=== PATIENT | male | born 1945 | race Caucasian/White ===

== ENCOUNTER 2017-11-03 21:04 | Inpatient (IN) ==
--- NOTE | 2017-11-03 21:35 | Emergency Department Note ---
Disposition Clinical Impression: Hypoxemia Community acquired pneumonia Qualifiers: Laterality: unspecified laterality Qualified Code(s): J18.9 - Pneumonia, unspecified organism Sepsis Qualifiers: Sepsis type: sepsis due to unspecified organism Qualified Code(s): A41.9 - Sepsis, unspecified organism Disposition: Admitted As Inpatient Condition: Fair Time of Disposition: 23:58 Fever HPI - General Chief Complaint: ED Fever Stated Complaint: high glucose/ fever Time Seen by Provider: 11/03/17 21:13 Source: patient Mode of arrival: ambulatory Limitations: no limitations Nursing Notes Reviewed: Yes Vital Signs Reviewed: Yes - History of Present Illness HPI Narrative: Patient is a 72-year-old male who presents to [facility] ED with a chief complaint of fever, headache, cough, feeling hot and chills. States his symptoms have been worsening over the last 2 days. His is also sick and states the grandchildren are also sick. Denies any nausea, vomiting, chest pain, difficulty breathing, abdominal pain, problems with urination. He has had one day of watery diarrhea. No recent antibiotic usage or travel. Past medical history significant for diabetes. States his sugar has been running high today. Pt Subjective Complaint: fever, malaise, rigors Onset (ago): day(s) (2) Context: sick contacts Associated symptoms: Reports: chills, rigors, headache, rhinorrhea, cough, diarrhea. Denies: chest pain, dyspnea, abdominal pain, nausea, vomiting, dysuria, altered mental status Improves with: nothing Worsens with: nothing - Related Data Previous Rx's Medication Instructions Recorded Amoxicillin 875 mg PO BID #20 tablet 08/07/15 Allergies Allergy/AdvReac Type Severity Reaction Status Date / Time No Known Allergies Allergy Verified 11/03/17 21:11 All systems ED: reviewed and negative except as stated. Fever PMH - Past Medical History Medical history: Reports: dementia, diabetes Psychiatric history: Reports: no psych history - Social History Smoking Status: Never smoker Alcohol use: Reports: occasionally Drug use: Reports: none Physical Exam - General Limitations: no limitations General appearance: alert, in no apparent distress - Head Head exam: atraumatic, normocephalic, normal inspection - Eye Eye exam: Present: normal appearance, PERRL, EOMI - ENT ENT exam: normal exam, normal oropharynx, mucous membranes moist - Neck Neck exam: Present: normal inspection, full ROM, trachea midline. Absent: meningismus - Chest Chest inspection: Present: normal inspection, symmetric chest wall rise - Respiratory Respiratory exam: Present: normal lung sounds bilaterally - Cardiovascular Cardiovascular exam: Present: normal rhythm, tachycardia - Abdominal Exam Abdominal exam: Present: soft, Non-Tender. Absent: tenderness, distention, guarding, rebound, rigidity - Extremities Exam Extremities exam: Present: normal inspection, full ROM. Absent: tenderness, pedal edema - Back Exam Back exam: Present: normal inspection, full ROM. Absent: tenderness - Neurological Exam Neurological exam: Present: alert, oriented X3. Absent: motor sensory deficit - Psychiatric Psychiatric exam: Present: normal affect, normal mood - Skin Skin exam: Present: warm, dry, intact, normal color Course Course Narrative: Patient seen and examined. Patient with cold symptoms and cough for the last 2 days. His febrile here of 101. Is also tachycardic and hypoxemic with his oxygen at 89% on room air. We will do a septic workup and check for influenza. We will likely admit due to his hypoxemia. - Reevaluation(s) Reevaluation #1: Chest x-ray shows bibasilar findings suspicious for possible pneumonia. With his hypoxemia, we will go ahead and treat as pneumonia. Levaquin and rocephin ordered for healthcare associated pneumonia. I discussed with hospitalist who has accepted patient for admission. States he would not recommend doing Rocephin at this time. Time: 23:50 Vital Signs Temperature 99.8 F H 11/03/17 21:08 Pulse Rate 122 11/03/17 21:08 Respiratory Rate 16 11/03/17 21:08 Blood Pressure 125/78 11/03/17 21:08 O2 Sat by Pulse Oximetry 90 11/03/17 21:08 Temperature 101.9 F H 11/03/17 21:21 Pulse Rate 91 11/03/17 23:17 Respiratory Rate 18 11/03/17 23:17 Blood Pressure 125/67 11/03/17 23:17 O2 Sat by Pulse Oximetry 96 11/03/17 23:17 Oxygen Delivery Oxygen Delivery Nasal Cannula Fever - Medical Records Medical records reviewed: Yes I reviewed the patient's medical records. - Lab Data Lab results reviewed: Yes I reviewed the patient's lab results. Result diagrams: 11/03/17 21:23 11/03/17 21:23 Lab Results 11/03/17 11/03/17 11/03/17 Range/Units 21:21 21:23 21:23 WBC 8.9 (4.3-11.1) K/mcL RBC 4.46 (4.19-5.50) M/mcL Hgb 13.5 (12.9-16.9) g/dL Hct 41.3 (37.5-50.1) % MCV 92.6 (83.0-100.0) fL MCH 30.3 (28.0-33.3) pg MCHC 32.7 (31.6-35.5) g/dL RDW 12.9 (11.5-14.5) % Plt Count 201 (140-400) K/mcL MPV 9.9 (9.4-12.4) fL Immature Gran % 0.3 (0-4) % Seg Neutrophils % 90.5 % Lymphocytes % 3.7 % Monocytes % 5.4 % Eosinophils % 0.0 % Basophils % 0.1 % Neutrophils # 8.1 (1.6-8.9) K/mcL Lymphocytes # 0.3 L (0.6-4.6) K/mcL Monocytes # 0.5 (0.0-1.3) K/mcL Eosinophils # 0.0 (0.0-0.6) K/mcL Basophils # 0.0 (0.0-0.2) K/mcL Toxic Granulation Present A (Not Present) Platelet Estimate Normal (Normal) Large Platelets Present A (Not Present) Sodium 132 L (136-145) mEq/L Potassium 4.2 (3.5-5.1) mEq/L Chloride 94 L (98-107) mEq/L Carbon Dioxide 24 (23-29) mEq/L BUN 28 H (8-23) mg/dL Creatinine 1.05 (0.70-1.30) mg/dL Est GFR ( Amer) > 60 (> 60) Est GFR (Non-Af Amer) > 60 (> 60) BUN/Creatinine Ratio 27 H (6-26) Glucose 422 H (70-105) mg/dL Calculated Osmolality 297 (280-300) Lactic Acid (0.5-2.2) mmol/L Calcium 8.8 (8.6-10.3) mg/dL Phosphorus 1.6 L (2.7-4.5) mg/dL Magnesium 1.6 (1.6-2.6) mg/dL Total Bilirubin 0.8 (0.3-1.0) mg/dL Direct Bilirubin 0.1 (0.0-0.2) mg/dL Indirect Bilirubin 0.7 (0.0-1.2) mg/dL AST 51 H (13-39) Units/L ALT 36 (7-52) Units/L Alkaline Phosphatase 96 (34-104) Units/L Troponin I < 0.03 (< 0.04) ng/mL Serum Total Protein 6.8 (6.4-8.9) g/dL Albumin 3.8 (3.5-5.7) g/dL Globulin 3.0 (2.4-3.5) g/dL Albumin/Globulin Ratio 1.3 (1.1-2.2) Urine Color Yellow (Yellow) Urine Clarity Clear (Clear) Urine pH 5.5 (5.0-8.0) pH Units Ur Specific Rydal > 1.030 H (1.010-1.025) Urine Protein 30 H (Neg-Trace) mg/dL Urine Glucose (UA) >=1000 H (Normal) mg/dL Urine Ketones 15 H (Negative) mg/dL Urine Blood Negative (Negative) Urine Nitrite Negative (Negative) Urine Bilirubin Negative (Negative) Urine Urobilinogen Normal (Normal) mg/dL Ur Leukocyte Esterase Negative (Negative) Urine Microscopic RBC 5-15 H (0-3) per hpf Urine Microscopic WBC 3-5 H (0-3) per hpf Ur Squamous Epith Cells Moderate H (None-Few) per lpf Urine Bacteria None Seen (None-Few) per hpf Hyaline Casts None Seen (None-Few) per lpf Ur Culture Indicated? NO (NO) 11/03/17 Range/Units 21:23 WBC (4.3-11.1) K/mcL RBC (4.19-5.50) M/mcL Hgb (12.9-16.9) g/dL Hct (37.5-50.1) % MCV (83.0-100.0) fL MCH (28.0-33.3) pg MCHC (31.6-35.5) g/dL RDW (11.5-14.5) % Plt Count (140-400) K/mcL MPV (9.4-12.4) fL Immature Gran % (0-4) % Seg Neutrophils % % Lymphocytes % % Monocytes % % Eosinophils % % Basophils % % Neutrophils # (1.6-8.9) K/mcL Lymphocytes # (0.6-4.6) K/mcL Monocytes # (0.0-1.3) K/mcL Eosinophils # (0.0-0.6) K/mcL Basophils # (0.0-0.2) K/mcL Toxic Granulation (Not Present) Platelet Estimate (Normal) Large Platelets (Not Present) Sodium (136-145) mEq/L Potassium (3.5-5.1) mEq/L Chloride (98-107) mEq/L Carbon Dioxide (23-29) mEq/L BUN (8-23) mg/dL Creatinine (0.70-1.30) mg/dL Est GFR ( Amer) (> 60) Est GFR (Non-Af Amer) (> 60) BUN/Creatinine Ratio (6-26) Glucose (70-105) mg/dL Calculated Osmolality (280-300) Lactic Acid 3.5 H (0.5-2.2) mmol/L Calcium (8.6-10.3) mg/dL Phosphorus (2.7-4.5) mg/dL Magnesium (1.6-2.6) mg/dL Total Bilirubin (0.3-1.0) mg/dL Direct Bilirubin (0.0-0.2) mg/dL Indirect Bilirubin (0.0-1.2) mg/dL AST (13-39) Units/L ALT (7-52) Units/L Alkaline Phosphatase (34-104) Units/L Troponin I (< 0.04) ng/mL Serum Total Protein (6.4-8.9) g/dL Albumin (3.5-5.7) g/dL Globulin (2.4-3.5) g/dL Albumin/Globulin Ratio (1.1-2.2) Urine Color (Yellow) Urine Clarity (Clear) Urine pH (5.0-8.0) pH Units Ur Specific Rydal (1.010-1.025) Urine Protein (Neg-Trace) mg/dL Urine Glucose (UA) (Normal) mg/dL Urine Ketones (Negative) mg/dL Urine Blood (Negative) Urine Nitrite (Negative) Urine Bilirubin (Negative) Urine Urobilinogen (Normal) mg/dL Ur Leukocyte Esterase (Negative) Urine Microscopic RBC (0-3) per hpf Urine Microscopic WBC (0-3) per hpf Ur Squamous Epith Cells (None-Few) per lpf Urine Bacteria (None-Few) per hpf Hyaline Casts (None-Few) per lpf Ur Culture Indicated? (NO) - Radiology Data Radiology results reviewed: Yes I reviewed the patient's radiology results. Chest X-Ray 11/03/17 21:14 IMPRESSION: Basilar airspace disease could reflect aspiration or pneumonia. Suspect a component of basilar predominant airway inflammation as well. D/ / Francisco Fletcher / Francisco Fletcher Interpreting Provider: Francisco Fletcher - EKG Data EKG attestation: Yes I reviewed and interpreted this EKG.
[2017-11-03 21:43] LABS: Basophils % 0.1 %; Hematocrit 41.3 % (37.5-50.1); Hemoglobin 13.5 g/dL (12.9-16.9); Immature Granulocytes % 0.3 % (0-4); Lymphocytes # 0.3 K/mcL (0.6-4.6); Lymphocytes % 3.7 %; Mean Corpuscular HGB Conc 32.7 g/dL (31.6-35.5); Mean Corpuscular Hemoglobin 30.3 pg (28.0-33.3); Mean Corpuscular Volume 92.6 fL (83.0-100.0); Mean Platelet Volume 9.9 fL (9.4-12.4); Monocytes # 0.5 K/mcL (0.0-1.3); Monocytes % 5.4 %; Platelet Count 201 K/mcL (140-400); Red Blood Count 4.46 M/mcL (4.19-5.50); Red Cell Distribution Width 12.9 % (11.5-14.5); Segmented Neutrophils % 90.5 %
[2017-11-03 21:45] LABS: Neutrophils # 8.1 K/mcL (1.6-8.9)
[2017-11-03] MEDS ORDERED: 0.9 % Sodium Chloride 1,000 ML IVC ONE (21:46)
[2017-11-03 21:50] LABS: Bilirubin,Urine Negative (Negative); Blood,Urine Negative (Negative); Clarity,Urine Clear (Clear); Color,Urine Yellow (Yellow); Glucose,Urine (UA) >=1000 mg/dL (Normal); Ketones,Urine 15 mg/dL (Negative); Leukocyte Esterase,Urine Negative (Negative); Nitrite,Urine Negative (Negative); PH,Urine 5.5 pH Units (5.0-8.0); Protein,Urine 30 mg/dL (Neg-Trace); Specific Gravity,Urine > 1.030 (1.010-1.025); Urobilinogen,Urine Normal (Normal)
[2017-11-03 21:51] LABS: Bacteria,Urine None Seen per hpf (None-Few); Hyaline Casts,Urine None Seen per lpf (None-Few); Squamous Epithelial Cell,Urine Moderate per lpf (None-Few)
--- NOTE | 2017-11-03 21:57 | Emergency Department Note ---
Disposition Clinical Impression: Hypoxemia Community acquired pneumonia Qualifiers: Laterality: unspecified laterality Qualified Code(s): J18.9 - Pneumonia, unspecified organism Sepsis Qualifiers: Sepsis type: sepsis due to unspecified organism Qualified Code(s): A41.9 - Sepsis, unspecified organism Disposition: Admitted As Inpatient Condition: Fair General Adult HPI - General Chief complaint: ED Fever Stated complaint: high glucose/ fever Time Seen by Provider: 11/03/17 21:13 Source: patient Mode of arrival: ambulatory Limitations: no limitations - History of Present Illness Pain Scale: 4 - Related Data Previous Rx's Medication Instructions Recorded Amoxicillin 875 mg PO BID #20 tablet 08/07/15 Allergies Allergy/AdvReac Type Severity Reaction Status Date / Time No Known Allergies Allergy Verified 11/03/17 21:11 Past Medical History - Past Medical History Medical history: Reports: dementia, diabetes Psychiatric history: Reports: no psych history - Social History Smoking Status: Never smoker Smokeless Tobacco Status: No Alcohol use: Reports: occasionally Drug use: Reports: none Physical Exam - General Limitations: no limitations General appearance: alert, in no apparent distress Course Vital Signs Temperature 99.8 F H 11/03/17 21:08 Pulse Rate 122 11/03/17 21:08 Respiratory Rate 16 11/03/17 21:08 Blood Pressure 125/78 11/03/17 21:08 O2 Sat by Pulse Oximetry 90 11/03/17 21:08 Temperature 97.9 F 11/04/17 01:27 Pulse Rate 80 11/04/17 01:27 Respiratory Rate 16 11/04/17 01:27 Blood Pressure 124/73 11/04/17 01:27 O2 Sat by Pulse Oximetry 95 11/04/17 01:27 Oxygen Delivery Oxygen Delivery Nasal Cannula Medical Decision Making - Lab Data Result diagrams: 11/04/17 00:26 11/04/17 00:26 Lab Results 11/03/17 11/03/17 11/03/17 Range/Units 21:21 21:23 21:23 WBC 8.9 (4.3-11.1) K/mcL RBC 4.46 (4.19-5.50) M/mcL Hgb 13.5 (12.9-16.9) g/dL Hct 41.3 (37.5-50.1) % MCV 92.6 (83.0-100.0) fL MCH 30.3 (28.0-33.3) pg MCHC 32.7 (31.6-35.5) g/dL RDW 12.9 (11.5-14.5) % Plt Count 201 (140-400) K/mcL MPV 9.9 (9.4-12.4) fL Immature Gran % 0.3 (0-4) % Seg Neutrophils % 90.5 % Lymphocytes % 3.7 % Monocytes % 5.4 % Eosinophils % 0.0 % Basophils % 0.1 % Neutrophils # 8.1 (1.6-8.9) K/mcL Lymphocytes # 0.3 L (0.6-4.6) K/mcL Monocytes # 0.5 (0.0-1.3) K/mcL Eosinophils # 0.0 (0.0-0.6) K/mcL Basophils # 0.0 (0.0-0.2) K/mcL Toxic Granulation Present A (Not Present) Platelet Estimate Normal (Normal) Large Platelets Present A (Not Present) Sodium 132 L (136-145) mEq/L Potassium 4.2 (3.5-5.1) mEq/L Chloride 94 L (98-107) mEq/L Carbon Dioxide 24 (23-29) mEq/L BUN 28 H (8-23) mg/dL Creatinine 1.05 (0.70-1.30) mg/dL Est GFR ( Amer) > 60 (> 60) Est GFR (Non-Af Amer) > 60 (> 60) BUN/Creatinine Ratio 27 H (6-26) Glucose 422 H (70-105) mg/dL Calculated Osmolality 297 (280-300) Lactic Acid (0.5-2.2) mmol/L Calcium 8.8 (8.6-10.3) mg/dL Phosphorus 1.6 L (2.7-4.5) mg/dL Magnesium 1.6 (1.6-2.6) mg/dL Total Bilirubin 0.8 (0.3-1.0) mg/dL Direct Bilirubin 0.1 (0.0-0.2) mg/dL Indirect Bilirubin 0.7 (0.0-1.2) mg/dL AST 51 H (13-39) Units/L ALT 36 (7-52) Units/L Alkaline Phosphatase 96 (34-104) Units/L Troponin I < 0.03 (< 0.04) ng/mL Serum Total Protein 6.8 (6.4-8.9) g/dL Albumin 3.8 (3.5-5.7) g/dL Globulin 3.0 (2.4-3.5) g/dL Albumin/Globulin Ratio 1.3 (1.1-2.2) Urine Color Yellow (Yellow) Urine Clarity Clear (Clear) Urine pH 5.5 (5.0-8.0) pH Units Ur Specific Veteran > 1.030 H (1.010-1.025) Urine Protein 30 H (Neg-Trace) mg/dL Urine Glucose (UA) >=1000 H (Normal) mg/dL Urine Ketones 15 H (Negative) mg/dL Urine Blood Negative (Negative) Urine Nitrite Negative (Negative) Urine Bilirubin Negative (Negative) Urine Urobilinogen Normal (Normal) mg/dL Ur Leukocyte Esterase Negative (Negative) Urine Microscopic RBC 5-15 H (0-3) per hpf Urine Microscopic WBC 3-5 H (0-3) per hpf Ur Squamous Epith Cells Moderate H (None-Few) per lpf Urine Bacteria None Seen (None-Few) per hpf Hyaline Casts None Seen (None-Few) per lpf Ur Culture Indicated? NO (NO) 11/03/17 Range/Units 21:23 WBC (4.3-11.1) K/mcL RBC (4.19-5.50) M/mcL Hgb (12.9-16.9) g/dL Hct (37.5-50.1) % MCV (83.0-100.0) fL MCH (28.0-33.3) pg MCHC (31.6-35.5) g/dL RDW (11.5-14.5) % Plt Count (140-400) K/mcL MPV (9.4-12.4) fL Immature Gran % (0-4) % Seg Neutrophils % % Lymphocytes % % Monocytes % % Eosinophils % % Basophils % % Neutrophils # (1.6-8.9) K/mcL Lymphocytes # (0.6-4.6) K/mcL Monocytes # (0.0-1.3) K/mcL Eosinophils # (0.0-0.6) K/mcL Basophils # (0.0-0.2) K/mcL Toxic Granulation (Not Present) Platelet Estimate (Normal) Large Platelets (Not Present) Sodium (136-145) mEq/L Potassium (3.5-5.1) mEq/L Chloride (98-107) mEq/L Carbon Dioxide (23-29) mEq/L BUN (8-23) mg/dL Creatinine (0.70-1.30) mg/dL Est GFR ( Amer) (> 60) Est GFR (Non-Af Amer) (> 60) BUN/Creatinine Ratio (6-26) Glucose (70-105) mg/dL Calculated Osmolality (280-300) Lactic Acid 3.5 H (0.5-2.2) mmol/L Calcium (8.6-10.3) mg/dL Phosphorus (2.7-4.5) mg/dL Magnesium (1.6-2.6) mg/dL Total Bilirubin (0.3-1.0) mg/dL Direct Bilirubin (0.0-0.2) mg/dL Indirect Bilirubin (0.0-1.2) mg/dL AST (13-39) Units/L ALT (7-52) Units/L Alkaline Phosphatase (34-104) Units/L Troponin I (< 0.04) ng/mL Serum Total Protein (6.4-8.9) g/dL Albumin (3.5-5.7) g/dL Globulin (2.4-3.5) g/dL Albumin/Globulin Ratio (1.1-2.2) Urine Color (Yellow) Urine Clarity (Clear) Urine pH (5.0-8.0) pH Units Ur Specific Veteran (1.010-1.025) Urine Protein (Neg-Trace) mg/dL Urine Glucose (UA) (Normal) mg/dL Urine Ketones (Negative) mg/dL Urine Blood (Negative) Urine Nitrite (Negative) Urine Bilirubin (Negative) Urine Urobilinogen (Normal) mg/dL Ur Leukocyte Esterase (Negative) Urine Microscopic RBC (0-3) per hpf Urine Microscopic WBC (0-3) per hpf Ur Squamous Epith Cells (None-Few) per lpf Urine Bacteria (None-Few) per hpf Hyaline Casts (None-Few) per lpf Ur Culture Indicated? (NO) Critical Care Time Critical Care Time: Yes Total Critical Care Time: 35 Attestation: Critical care performed: Time is exclusive of separately billable procedures. Time includes: direct patient care, patient reassessment, coordination of patient care, interpretation of data (laboratory data, radiology data, and respiratory data), review of patient's medical records, medical consultation and documentation of patient care. Procedures included in critical care time: Procedures excluded from critical care time: Attestation Statement - Attestation Attestation: I examined this patient and my medical decision-making was reviewed with the Resident Physician. I agree with the documented findings, disposition and treatment plan as described except to the extent set forth below. Patient to the ED not feeling well. Fever. Dry cough. Runny nose. Has been around grandchildren they have been caring for that had fevers. On examination his stomach hypoxic requiring oxygen. Lungs clear abdomen soft. Plan. Septic workup. Patient's febrile here. We will give IV fluids and Tylenol. Likely admission. Patient with pneumonia. Community acquired antibiotics ordered. He meets sepsis criteria with fever and tachycardia. He does not meet septic shock criteria. Lactate is elevated but less than 4. Blood pressure stable. Admitted to medicine.
[2017-11-03 22:04] LABS: Large Platelets Present (Not Present); Platelet Estimate Normal (Normal); Toxic Granulation Present (Not Present)
[2017-11-03 22:13] LABS: Troponin I < 0.03 ng/mL (< 0.04)
[2017-11-03] MEDS ORDERED: Levofloxacin 750 MG/150 ML 750 MG/150 ML BAG IVPB ONE (22:25)
[2017-11-03 22:27] LABS: Alanine Aminotransferase 36 Units/L (7-52); Albumin 3.8 g/dL (3.5-5.7); Albumin/Globulin Ratio 1.3 (1.1-2.2); Alkaline Phosphatase 96 Units/L (34-104); Aspartate Amino Transferase 51 Units/L (13-39); BUN/Creatinine Ratio 27 (6-26); Bilirubin,Direct 0.1 mg/dL (0.0-0.2); Bilirubin,Indirect 0.7 mg/dL (0.0-1.2); Bilirubin,Total 0.8 mg/dL (0.3-1.0); Blood Urea Nitrogen 28 mg/dL (8-23); Calcium 8.8 mg/dL (8.6-10.3); Carbon Dioxide 24 mEq/L (23-29); Chloride 94 mEq/L (98-107); Glucose 422 mg/dL (70-105); Magnesium 1.6 mg/dL (1.6-2.6); Osmolality,Calculated 297 (280-300); Phosphorous 1.6 mg/dL (2.7-4.5); Potassium 4.2 mEq/L (3.5-5.1); Sodium 132 mEq/L (136-145); Total Protein 6.8 g/dL (6.4-8.9); eGFR For African Americans > 60 (> 60); eGFR For Non-African Americans > 60 (> 60)
[2017-11-03] MEDS ORDERED: cefTRIAXone 2,000 MG in Water for inj. (sterile) 20 ML 20 ML IVP SCH (23:00)
[2017-11-03] MEDS ORDERED: Dextrose Gel 15 GM/37.5 ML TUBE PO PRN ×2 (23:27)
[2017-11-03] MEDS ORDERED: *HR* Dextrose 50 % in Water (Syg) 50 ML SYRINGE IVP PRN (23:27)
[2017-11-03] MEDS ORDERED: D5% in Water 1,000 ML IVC PRN (23:27)
[2017-11-03] MEDS ORDERED: Acetaminophen 325 MG TABLET PO PRN (23:29)
[2017-11-03] MEDS ORDERED: Naloxone 0.4 MG/ML INJ IVP PRN (23:29)
--- NOTE | 2017-11-03 23:34 | Internal Med History&Physical ---
Date of Encounter: 11/04/17 Time of Encounter: 23:31 Internal Medicine - H&P: HPI Chief complaint: Shortness of breath Admitted From: Emergency Dept Plans for Post Hospital Care: Home History of present illness: Mr. Collins is a 72 year old male with history of diabetes who presented to [facility] ED with chief complaints of fever, dry cough, headache. The symptoms have been going on for 2 days. He has sick contacts at home including grandchildren and his . He denies any nausea, vomiting, blurry vision, chest pain, abdominal pain, diarrhea, constipation, urinary symptoms, or neurological symptoms. In the ED he was found to have pneumonia. He was hypoxic at 89% on room air. He was febrile at 101.9. Labs were significant for hyperglycemia and lactic acidosis. Past Med Surg Social Fam HX - Past Medical History Medical history: dementia, diabetes Psychiatric history: no psych history - Social History Smoking Status: Never smoker Smokeless Tobacco Status: No Alcohol use: occasionally Drug use: none Internal Medicine - H&P: Meds Amoxicillin 875 mg PO BID #20 tablet 08/07/15 [Rx] 3 Allergy/AdvReac Type Severity Reaction Status Date / Time No Known Allergies Allergy Verified 11/03/17 21:11 All Systems PM: A 10-system review of systems was performed and is negative for pertinent findings except as documented above in the HPI. Review of systems: All systems reviewed are negative except for as mentioned above - Constitutional Vitals: Temp Pulse Resp BP Pulse Ox 101.9 F H 91 18 125/67 96 11/03/17 21:21 11/03/17 23:17 11/03/17 23:17 11/03/17 23:17 11/03/17 23:17 Exam: GEN: NAD HEENT: AT, NC, No cyanosis, oral mucosa is moist, No JVD Lymphatics: No lymphadenoapthy Eyes: Extrocular muscles intact, anicteric CVS:RRR. S1, S2, No m/r/g RESP: Diminished with bibasilar coarse breath sounds. ABD: Soft, NT, ND, +BS EXT: No edema, No rashes, 2+ DP NEURO: Nonfocal, CN II-XII intact, No focal motor or sensory deficits Psych: Cooperative, Not anxious or depressed Internal Med - H&P Results - Labs CBC & Chem 7: 11/03/17 21:23 11/03/17 21:23 - Assessment and plan (1) Acute respiratory failure with hypoxia Current Visit: Yes Status: Acute Assessment and plan: Likely due to pneumonia. Will treat underlying cause as below. c/w O2 support and wean as tolerated. (2) Sepsis Current Visit: Yes Status: Acute Assessment and plan: Due to pneumonia. Patient has tachycardia, febrile, leukocytosis, and elevated lactic acid. Treat pneumonia as below. Qualifiers: Sepsis type: sepsis due to unspecified organism Qualified Code(s): A41.9 - Sepsis, unspecified organism (3) Pneumonia Current Visit: Yes Status: Acute Assessment and plan: Will treat as community acquired pneumonia. c/w levaquin started in ED. Nebs, O2 support. check sputum if able to give a sample. check urine strep/leginella. IV fluids. Qualifiers: Pneumonia type: due to unspecified organism Laterality: bilateral Lung location: lower lobe of lung Qualified Code(s): J18.1 - Lobar pneumonia, unspecified organism (4) Lactic acidosis Current Visit: Yes Status: Acute Assessment and plan: Given IV fluids in ED. Will repeat levels now. Continue NS maintenance. (5) Diabetes mellitus Current Visit: Yes Status: Acute Assessment and plan: Elevated glucose from sepsis. Will start sliding scale insulin for now. Accucheks. Qualifiers: Diabetes mellitus type: type 2 Diabetes mellitus correction insulin use: without terminal worker use Diabetes mellitus complication status: without complication Qualified Code(s): E11.9 - Type 2 diabetes mellitus without complications (6) DVT prophylaxis Current Visit: Yes Status: Acute Assessment and plan: Heparin SQ - Time Spent With Patient Total time spent is greater than 50% in coordination of care (as documented) at patient's floor/unit and/or counseling patient:
[2017-11-04 00:40] LABS: Basophils % 0.1 %; Hematocrit 34.9 % (37.5-50.1); Immature Granulocytes % 0.4 % (0-4); Lymphocytes # 0.4 K/mcL (0.6-4.6); Lymphocytes % 4.2 %; Mean Corpuscular HGB Conc 32.7 g/dL (31.6-35.5); Mean Corpuscular Hemoglobin 29.9 pg (28.0-33.3); Mean Corpuscular Volume 91.6 fL (83.0-100.0); Mean Platelet Volume 9.6 fL (9.4-12.4); Monocytes # 0.6 K/mcL (0.0-1.3); Monocytes % 7.4 %; Neutrophils # 7.3 K/mcL (1.6-8.9); Platelet Count 163 K/mcL (140-400); Red Blood Count 3.81 M/mcL (4.19-5.50); Red Cell Distribution Width 12.8 % (11.5-14.5); Segmented Neutrophils % 87.9 %
[2017-11-04 00:45] LABS: Hemoglobin 11.4 g/dL (12.9-16.9)
[2017-11-04 00:59] LABS: BUN/Creatinine Ratio 30 (6-26); Blood Urea Nitrogen 27 mg/dL (8-23); Calcium 8.2 mg/dL (8.6-10.3); Carbon Dioxide 23 mEq/L (23-29); Chloride 100 mEq/L (98-107); Glucose 371 mg/dL (70-105); Magnesium 1.5 mg/dL (1.6-2.6); Osmolality,Calculated 294 (280-300); Potassium 3.7 mEq/L (3.5-5.1); Sodium 132 mEq/L (136-145); eGFR For African Americans > 60 (> 60); eGFR For Non-African Americans > 60 (> 60)
[2017-11-04] MEDS: 0.9 % Sodium Chloride 1,000 ML IVC SCH ×3 (01:11→18:32)
[2017-11-04] MEDS: Ipratropium/Albuterol Neb 3 ML IH SCH ×4 (04:48→22:57)
[2017-11-04] MEDS: *HR* Heparin 5,000 UNIT/ML VIAL SQ SCH ×3 (05:46→21:27)
[2017-11-04] MEDS: Insulin LISPRO 300 UNITS/3 ML VIAL SQ SCH ×7 (07:37→21:35)
[2017-11-04 13:35] LABS: Adenovirus F 40/41 PCR Not detected (Not detect); Astrovirus PCR Not detected (Not detect); C.difficile Toxin A/B by PCR Not detected (Not detect); Campylobacter by PCR Not detected (Not detect); Cryptosporidium by PCR Not detected (Not detect); Cyclospora cayetanensis PCR Not detected (Not detect); E. coli O157 by PCR Not detected (Not detect); Entamoeba histolytica PCR Not detected (Not detect); Enteroaggregative E.coli(EAEC) Not detected (Not detect); Enteropathogenic E.coli(EPEC) Not detected (Not detect); Enterotoxigenic E.coli (ETEC) Not detected (Not detect); Giardia lamblia PCR Not detected (Not detect); Norovirus GI/GII PCR Not detected (Not detect); Plesiomonas shigelloides PCR Not detected (Not detect); Rotavirus A PCR Not detected (Not detect); Salmonella PCR Not detected (Not detect); Sapovirus PCR Not detected (Not detect); Shig/EnteroinvasiveE coli EIEC Not detected (Not detect); Shigalike tox-prod E coli STEC Not detected (Not detect); Vibrio PCR Not detected (Not detect); Vibrio cholerae PCR Not detected (Not detect); Yersinia enterocolitica PCR Not detected (Not detect)
--- NOTE | 2017-11-04 16:16 | Internal Med Progress Note ---
Date of Encounter: 11/04/17 Time of Encounter: 16:13 - Assessment and plan (1) Acute respiratory failure with hypoxia Current Visit: Yes Status: Acute Assessment and plan: - Presented with upper respiratory symptoms including cough, congestion, and fever. - Pneumonia suspected, received Rocephin IV at ED, switched to IV Levaquin, continue current antibiotics. - Overall symptoms improved, continue DuoNeb. (2) Sepsis Current Visit: Yes Status: Suspected Assessment and plan: - UA ruled out UTI, negative flu A/B, negative streppneumo and Legionella. - WBC normal. Afebrile. Lactic acidosis resolved. - Continue IV fluid, continue IV antibiotics. Qualifiers: Sepsis type: sepsis due to unspecified organism Qualified Code(s): A41.9 - Sepsis, unspecified organism (3) Pneumonia Current Visit: Yes Status: Suspected Assessment and plan: - Continue IV antibiotics. Qualifiers: Pneumonia type: due to unspecified organism Laterality: bilateral Lung location: lower lobe of lung Qualified Code(s): J18.1 - Lobar pneumonia, unspecified organism (4) Lactic acidosis Current Visit: Yes Status: Resolved (5) Diabetes mellitus Current Visit: Yes Status: Acute Assessment and plan: - Pending A1c. Add bolus insulin, continue insulin sliding scale. Qualifiers: Diabetes mellitus type: type 2 Diabetes mellitus long term care pharmacist insulin use: without long term care pharmacist use Diabetes mellitus complication status: without complication Qualified Code(s): E11.9 - Type 2 diabetes mellitus without complications (6) DVT prophylaxis Current Visit: Yes Status: Acute Assessment and plan: - Heparin subcutaneous. - Time Spent With Patient Total time spent is greater than 50% in coordination of care (as documented) at patient's floor/unit and/or counseling patient: Greater than 35 minutes - Subjective Interval history: Patient still complaining cough but has improved. - Constitutional Vitals: Temp Pulse Resp BP Pulse Ox 98.3 F 86 16 133/69 95 11/04/17 12:24 11/04/17 12:24 11/04/17 15:52 11/04/17 12:24 11/04/17 15:52 General appearance: Present: A&O X 3 Exam: PHYSICAL EXAMINATION: GENERAL APPEARANCE: The patient is alert, oriented and in no acute distress. HEENT: Head is normocephalic. The sinuses are nontender. Pupils are equal and reactive. The nares are patent. Oropharynx clear without lesions. NECK: Supple without lymphadenopathy. HEART: Regular rate and rhythm. LUNGS: No crackles or wheezes are heard. ABDOMEN: Soft, nontender, nondistended with good bowel sounds heard. Inguinal area is normal. EXTREMITIES: Without cyanosis, clubbing or edema. NEUROLOGICAL: Gross nonfocal. SKIN: Warm and dry without any rash. Internal Medicine: Result - Labs CBC & Chem 7: 11/04/17 00:26 11/04/17 00:26 Labs: Short CBC 11/04/17 Range/Units 00:26 WBC 8.3 (4.3-11.1) K/mcL Hgb 11.4 L D (12.9-16.9) g/dL Hct 34.9 L (37.5-50.1) % Plt Count 163 (140-400) K/mcL Neutrophils # 7.3 (1.6-8.9) K/mcL BMP 11/04/17 00:26 Sodium 132 L Potassium 3.7 Chloride 100 Carbon Dioxide 23 BUN 27 H Creatinine 0.89 Glucose 371 H Calcium 8.2 L Consult Discharge Plan - Plan Referrals: Brent Vu DO [Primary Care Provider] -
[2017-11-04 16:45] LABS: Estimated Average Glucose 266 mg/dl; Hemoglobin A1C 10.9 %
[2017-11-04] MEDS ORDERED: Patient Taking Own Medication 1 EACH PO SCH (21:00)
[2017-11-04] MEDS ORDERED: MEMANTINE HCL 10 MG PO SCH (21:00)
[2017-11-04] MEDS: [UNRECOGNIZED DRUG - OTHER] PO SCH (21:26)
[2017-11-04] MEDS: Levofloxacin 750 MG/150 ML 750 MG/150 ML BAG IVPB SCH (23:27)
--- NOTE | 2017-11-05 00:39 | Event Note ---
Date of Encounter: 11/05/17 Time of Encounter: 00:37 Patient went into afib with RVR with rates up to the 130-140s. confirmed on EKG. Otherwise stable. No history of it. Will give 10 IV cardizem +/- cardizem drip depending on response. Anticoagulation per day team if deemed reasonable. Check mag and K stat.
[2017-11-05 00:56] LABS: Hematocrit 31.2 % (37.5-50.1); Hemoglobin 10.2 g/dL (12.9-16.9); Mean Corpuscular HGB Conc 32.7 g/dL (31.6-35.5); Mean Corpuscular Hemoglobin 29.9 pg (28.0-33.3); Mean Corpuscular Volume 91.5 fL (83.0-100.0); Mean Platelet Volume 9.6 fL (9.4-12.4); Platelet Count 169 K/mcL (140-400); Red Blood Count 3.41 M/mcL (4.19-5.50); Red Cell Distribution Width 12.9 % (11.5-14.5)
[2017-11-05 01:10] LABS: BUN/Creatinine Ratio 19 (6-26); Blood Urea Nitrogen 17 mg/dL (8-23); Carbon Dioxide 22 mEq/L (23-29); Chloride 107 mEq/L (98-107); Glucose 163 mg/dL (70-105); Magnesium 1.9 mg/dL (1.6-2.6); Osmolality,Calculated 293 (280-300); Potassium 2.9 mEq/L (3.5-5.1); Sodium 139 mEq/L (136-145); eGFR For African Americans > 60 (> 60); eGFR For Non-African Americans > 60 (> 60)
[2017-11-05] MEDS ORDERED: Magnesium Oxide 400 MG TABLET PO ONE (01:28)
[2017-11-05] MEDS ORDERED: 0.9 % Sodium Chloride 500 ML ONE (01:52)
[2017-11-05] MEDS ORDERED: 0.9 % Sodium Chloride 500 ML IVC SCH (02:00)
[2017-11-05] MEDS ORDERED: Potassium Chloride 40 MEQ, Lidocaine 1% 2 ML in D5% in Water 500 ML IVPB ONE ×2 (02:00→12:38)
[2017-11-05] MEDS: Ipratropium/Albuterol Neb 3 ML IH SCH ×4 (03:59→21:19)
[2017-11-05] MEDS: *HR* Heparin 5,000 UNIT/ML VIAL SQ SCH ×3 (06:26→22:43)
[2017-11-05] MEDS: 0.9 % Sodium Chloride 1,000 ML IVC SCH ×3 (08:43→22:44)
[2017-11-05] MEDS: Insulin LISPRO 300 UNITS/3 ML VIAL SQ SCH ×7 (08:44→22:45)
[2017-11-05] MEDS: [UNRECOGNIZED DRUG - OTHER] PO SCH (08:46)
[2017-11-05] MEDS: Venlafaxine XR (24 HR) 75 MG CAP.ER.24H PO SCH (08:47)
[2017-11-05] MEDS ORDERED: ZETIA 10MG PO SCH (09:00)
[2017-11-05] MEDS ORDERED: (Ezetimibe [Zetia] 10 MG) PO SCH (09:00)
[2017-11-05] MEDS: MEMANTINE PO SCH ×2 (09:49→22:42)
--- NOTE | 2017-11-05 12:42 | Internal Med Progress Note ---
Date of Encounter: 11/05/17 Time of Encounter: 12:40 - Assessment and plan (1) PAF (paroxysmal atrial fibrillation) Current Visit: Yes Status: Acute Assessment and plan: Patient new onset defibrillation now back in sinus rhythm we will obtain 2-D echo and consult cardiology (2) Pneumonia Current Visit: Yes Status: Acute Assessment and plan: Clinically better white count is normal we will continue Levaquin IV Qualifiers: Pneumonia type: due to unspecified organism Laterality: bilateral Lung location: lower lobe of lung Qualified Code(s): J18.1 - Lobar pneumonia, unspecified organism (3) Diabetes mellitus Current Visit: Yes Status: Chronic Assessment and plan: Glucose is uncontrolled will resume his home metformin and then continue moderate dose sliding scale sliding scale and check hemoglobin A1c Qualifiers: Diabetes mellitus type: type 2 Diabetes mellitus nursing home insulin use: without nursing home use Diabetes mellitus complication status: without complication Qualified Code(s): E11.9 - Type 2 diabetes mellitus without complications - Time Spent With Patient Total time spent is greater than 50% in coordination of care (as documented) at patient's floor/unit and/or counseling patient: - Subjective Interval history: Patient with history of dementia, diabetes, admitted with fever cough and shortness of breath diagnosed with pneumonia last night patient went into atrial fibrillation with RVR now back in sinus rhythm no previous history of atrial fib not having any chest pain. - Constitutional Vitals: Temp Pulse Resp BP Pulse Ox 97.9 F 81 18 128/82 94 11/05/17 11:03 11/05/17 11:03 11/05/17 11:03 11/05/17 11:03 11/05/17 11:03 General appearance: Present: A&O X 3 - Eye Eye exam: Present: PERRL, conjuntiva pink, sclera anicteric Pupils: Present: PERRL - Neck Neck exam general surgery: Present: supple, trachea midline. Absent: lymphadenopathy - Respiratory Respiratory exam: Present: rales, rhonchi - Cardiovascular Cardiovascular exam: Present: RRR, +S1, +S2. Absent: diastolic murmur, gallop, rubs, systolic murmur - GI/Abdominal GI/Abdominal exam: Present: normal bowel sounds, soft, no peritoneal signs. Absent: distended, tenderness Internal Medicine: Result - Labs CBC & Chem 7: 11/05/17 00:42 11/05/17 00:42 Labs: Short CBC 11/05/17 Range/Units 00:42 WBC 6.3 (4.3-11.1) K/mcL Hgb 10.2 L (12.9-16.9) g/dL Hct 31.2 L (37.5-50.1) % Plt Count 169 (140-400) K/mcL BMP 11/05/17 11/05/17 00:42 00:42 Sodium 139 Potassium 2.9 L 2.9 L Chloride 107 Carbon Dioxide 22 L BUN 17 Creatinine 0.91 Glucose 163 H Calcium 8.0 L Consult Discharge Plan - Plan Referrals: Brent Vu DO [Primary Care Provider] -
[2017-11-05 13:54] LABS: Estimated Average Glucose 266 mg/dl; Hemoglobin A1C 10.9 %
[2017-11-05] MEDS: *HR* Metformin 500 MG TABLET PO SCH (16:42)
[2017-11-05] MEDS: Levofloxacin 750 MG/150 ML 750 MG/150 ML BAG IVPB SCH (22:43)
[2017-11-06] MEDS: Ipratropium/Albuterol Neb 3 ML IH SCH ×4 (04:40→21:53)
[2017-11-06] MEDS: *HR* Heparin 5,000 UNIT/ML VIAL SQ SCH ×2 (06:31→14:37)
[2017-11-06] MEDS: 0.9 % Sodium Chloride 1,000 ML IVC SCH ×3 (07:26→15:34)
[2017-11-06] MEDS: Insulin LISPRO 300 UNITS/3 ML VIAL SQ SCH ×7 (08:25→20:54)
[2017-11-06] MEDS: *HR* Metformin 500 MG TABLET PO SCH ×2 (08:25→15:55)
[2017-11-06] MEDS: Venlafaxine XR (24 HR) 75 MG CAP.ER.24H PO SCH (08:26)
[2017-11-06] MEDS: MEMANTINE PO SCH ×2 (08:27→20:56)
--- NOTE | 2017-11-06 09:31 | Internal Med Progress Note ---
Date of Encounter: 11/06/17 Time of Encounter: 09:29 - Assessment and plan (1) PAF (paroxysmal atrial fibrillation) Current Visit: Yes Status: Acute Assessment and plan: echo done report not yet done cardiology consulted (2) Pneumonia Current Visit: Yes Status: Acute Assessment and plan: clinically much better Qualifiers: Pneumonia type: due to unspecified organism Laterality: bilateral Lung location: lower lobe of lung Qualified Code(s): J18.1 - Lobar pneumonia, unspecified organism (3) Diabetes mellitus Current Visit: Yes Status: Chronic Assessment and plan: not well controlled Qualifiers: Diabetes mellitus type: type 2 Diabetes mellitus halfway insulin use: without halfway use Diabetes mellitus complication status: without complication Qualified Code(s): E11.9 - Type 2 diabetes mellitus without complications - Time Spent With Patient Total time spent is greater than 50% in coordination of care (as documented) at patient's floor/unit and/or counseling patient: - Subjective Interval history: Patient with history of dementia, diabetes, admitted with fever cough and shortness of breath diagnosed with pneumonia last night patient went into atrial fibrillation with RVR now back in sinus rhythm no previous history of atrial fib not having any chest pain. today patient feels better echo done report not available - Constitutional Vitals: Temp Pulse Resp BP Pulse Ox 97.6 F 75 16 156/96 96 11/06/17 07:34 11/06/17 07:34 11/06/17 07:34 11/06/17 07:34 11/06/17 07:34 General appearance: Present: A&O X 3 - Head Head exam: Present: atraumatic, normocephalic - Eye Eye exam: Present: PERRL, conjuntiva pink, sclera anicteric Pupils: Present: PERRL - Neck Neck exam general surgery: Present: supple, trachea midline. Absent: lymphadenopathy - Cardiovascular Cardiovascular exam: Present: RRR, +S1, +S2. Absent: diastolic murmur, gallop, rubs, systolic murmur Internal Medicine: Result - Labs CBC & Chem 7: 11/05/17 00:42 11/05/17 00:42 Consult Discharge Plan - Plan Referrals: Brent Vu DO [Primary Care Provider] -
[2017-11-06] MEDS ORDERED: Diltiazem CD (24hr) 120 MG CAPSULE PO SCH (15:30)
--- NOTE | 2017-11-06 15:31 | Cardiology History & Physical ---
Date of Encounter: 11/06/17 Time of Encounter: 15:28 Assessment and Plan (1) Atrial fibrillation with RVR Current Visit: Yes Status: Acute The assessment and plan as outlined above was discussed with the patient and/or family members who expressed understanding and agreement. All questions were answered. Seen to have atrial fibrillation with RVR last night. He was started on cardizem gtt and converted to NSR. Currently NSR. EKG shows NSR. No acute ST changes. Telemetry shows atrial fibrillation with RVR until about 0800 this morning. Now NSR. Likely exacerbated by pneumonia. TTE reviewed. Shows EF 60-65%. Mild tricuspid regurgitation. TSH was normal. Troponin negative. Potassium 2.9- replaced by primary team. Change IV cardizem to oral. CHADS VASc=2 for DM and age. I discussed anticoagulation with coumadin verses NOAC. He is agreeable to eliquis. RX sent to his pharmacy. Out-patient f/u will be scheduled with [facility]. Call with questions. History of Present Illness Chief complaint: difficulty breathing HPI: Mr. Collins is a 72 year old male with past medical history of diabetes who presented with difficulty breathing. He was diagnosed with pneumonia with sepsis. Cardiology consulted for atrial fibrillation with RVR that was seen during his stay. He denies previous history of afib. Denies palpitations. Reports one episode of sharp left sided chest discomfort lasting only a few seconds. Denies orthopnea, PND, or edema. He was started on IV cardizem and converted to NSR. Past Med Surg Social Fam HX - Past Medical History Medical history: dementia, diabetes Psychiatric history: no psych history - Past Surgical History Surgical History: orthopedic, other, tonsilectomy - Social History Smoking Status: Never smoker Smokeless Tobacco Status: No Alcohol use: occasionally Drug use: none - Family History Mother Living Status: Cause of : Lung CA Hx Family Cancer: Yes (Lung CA) Hx Family Endocrine Disorder: Yes (Diabetes) Father Living Status: Cause of : Renal Disease Hx Family Respiratory Disorders: Yes (Chronic PNA) Hx Family Medical Disorders: Yes (Renal Disease) Medications and Allergies Atomoxetine HCl [Strattera] 80 mg PO DAILY 11/04/17 [History] Atorvastatin [Lipitor] 40 mg PO HS 11/04/17 [History] Ezetimibe [Zetia] 10 mg PO DAILY 11/04/17 [History] Insulin Regular Human [HumuLIN R] 4 - 12 unit SQ TID PRN 11/04/17 [History] Memantine HCl [Memantine HCl] 10 mg PO BID 11/04/17 [History] Metformin HCl [Glucophage] 1,000 mg PO BID 11/04/17 [History] Venlafaxine HCl [Venlafaxine HCl ER] 225 mg PO DAILY 11/04/17 [History] Zolpidem [Ambien] 10 mg PO HS 11/04/17 [History] Apixaban [Eliquis] 5 mg PO BID #60 tablet 11/06/17 [Rx] 3 Allergy/AdvReac Type Severity Reaction Status Date / Time No Known Allergies Allergy Verified 11/03/17 21:11 All Systems Review: The remainder of the systems were reviewed and are negative Physical Examination Vital Signs, Last 4 Hours Temp Pulse Resp BP Pulse Ox 11/06/17 13:22 97.7 F 64 14 122/66 100 General: Conversant, No Apparent Distress HEENT: Atraumatic, Normocephaly, Mucus Membranes Moist Neck: No JVD, Normal carotid pulses Cardiac: Reg Rate and Rhythm, Normal S1 and S2, No Murmur Lungs: Normal Breath Sounds, No Wheeze, Rales, Rhonchi Neuro: Alert and responsive, No focal deficits noted Abdomen: Soft, Non-Tender Skin: No rashes noted on visualized skin Musculoskeletal: No Chest Wall Tenderness Extremities: No Clubbing, No Cyanosis, No Edema, Normal Pulses Results 11/05/17 00:42 11/05/17 00:42 Lab Results 11/06/17 11:19 TSH 0.927 Chest X-Ray 11/03/17 21:14 IMPRESSION: Basilar airspace disease could reflect aspiration or pneumonia. Suspect a component of basilar predominant airway inflammation as well. D/ / Francisco Fletcher / Francisco Fletcher Interpreting Provider: Francisco Fletcher Echocardiogram 11/05/17 12:42 Impressions: LVEF 60-65%. Indeterminate diastolic function. Normal right ventricular structure and function. Mild tricuspid regurgitation. No pulmonary hypertension by TR gradient. IVC not well visualized. Left Ventricular Wall Motion: Rest Echo Findings All wall segments showed normal motion. - Imaging and Cardiology Echo: report reviewed - EKG Interpretation EKG results cardiology: personally reviewed
--- NOTE | 2017-11-06 16:37 | Electrocardiograph Report ---
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
--- NOTE | 2017-11-06 16:52 | Event Note ---
Date of Encounter: 11/06/17 Time of Encounter: 16:50 - Cardiology Event Note Eliquis cost 28$ per patient pharmacy. Discussed with patient and . He is agreeable to start.
--- NOTE | 2017-11-06 16:56 | Electrocardiograph Report ---
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
[2017-11-06] MEDS ORDERED: levoFLOXacin 750 MG TABLET PO SCH (18:00)
[2017-11-06] MEDS: Apixaban 5 MG TABLET PO SCH ×2 (18:06→18:07)
[2017-11-07] MEDS: 0.9 % Sodium Chloride 1,000 ML IVC SCH ×2 (00:52→08:29)
[2017-11-07] MEDS: Ipratropium/Albuterol Neb 3 ML IH SCH ×2 (03:34→10:42)
[2017-11-07 07:41] LABS: BUN/Creatinine Ratio 12 (6-26); Blood Urea Nitrogen 9 mg/dL (8-23); Calcium 8.4 mg/dL (8.6-10.3); Carbon Dioxide 23 mEq/L (23-29); Chloride 109 mEq/L (98-107); Glucose 262 mg/dL (70-105); Osmolality,Calculated 294 (280-300); Potassium 4.1 mEq/L (3.5-5.1); Sodium 138 mEq/L (136-145); eGFR For African Americans > 60 (> 60); eGFR For Non-African Americans > 60 (> 60)
[2017-11-07] MEDS: Venlafaxine XR (24 HR) 75 MG CAP.ER.24H PO SCH (08:27)
[2017-11-07] MEDS: *HR* Metformin 500 MG TABLET PO SCH (08:27)
[2017-11-07] MEDS: Apixaban 5 MG TABLET PO SCH (08:28)
[2017-11-07] MEDS: MEMANTINE PO SCH (08:29)
[2017-11-07] MEDS: Insulin LISPRO 300 UNITS/3 ML VIAL SQ SCH ×4 (08:29→12:08)
[2017-11-07] MEDS ORDERED: Diltiazem CD (24hr) 180 MG CAPSULE PO SCH (09:00)
--- NOTE | 2017-11-07 10:16 | Cardiology Progress Note ---
Date of Encounter: 11/07/17 Time of Encounter: 10:12 Assessment and Plan (1) Atrial fibrillation with RVR Current Visit: Yes Status: Acute PAF RVR, on Cardizem gtt 5mg/hr, since converted to NSR. Currently NSR. 12 hr tele AVG HR 86, now SR. TTE reviewed. Shows EF 60-65%. Mild tricuspid regurgitation. TSH was normal. Troponin negative. Will stop IV Cardizem gtt. On PO Cardizem 180mg daily. CHADS VASc=2 for DM and age. Eliquis 5mg BID started, graham checked and affordable. Cardiology signing off. Reconsult PRN. Will coordinate outpt follow-up in 3-4 weeks. Discussion w patient/family: The assessment and plan as outlined above was discussed with the patient and/or family members who expressed understanding and agreement. All questions were answered. Thank you for involving us in the care of your patient. Please call with any questions. I will discuss all the above with Dr. Ross and make changes as necessary. Subjective Principal diagnosis: A-Fib RVR, PNA Interval history: Pt now back in SR. No acute complaints this AM. Denies chest pain or palpitations. Objective Vital Signs, Last 4 Hours Temp Pulse Resp BP Pulse Ox 11/07/17 07:56 98.1 F 68 18 128/74 96 Vital Signs Temp Pulse Resp BP Pulse Ox 11/07/17 07:56 98.1 F 68 18 128/74 96 11/07/17 03:35 98.1 F 73 15 139/77 94 11/07/17 03:34 16 96 11/06/17 23:52 98.1 F 85 15 143/71 96 11/06/17 21:54 16 91 11/06/17 19:38 98.3 F 101 15 118/66 98 11/06/17 17:57 97.8 F 105 16 147/80 97 11/06/17 16:01 16 96 11/06/17 15:47 97.9 F 68 16 146/76 98 11/06/17 13:22 97.7 F 64 14 122/66 100 11/06/17 11:21 97.7 F 70 16 155/74 97 Intake and Output 11/06/17 11/07/17 11/07/17 23:59 07:59 15:59 Intake Total 2206.4 / 2206.4 1413.1 / 1413.1 Output Total 200 / 200 600 / 600 Balance 2006.4 / 2006.4 -600 / -600 1413.1 / 1413.1 Intake: IV Fluids 1046.4 / 1046.4 1053.1 / 1053.1 0.9 % Sodium Chloride 1,000 ML 1000 / 1000 1000 / 1000 @ 125 mls/hr IVC .Q8H [facility] Rx#: [id number] Cardizem 125 MG In 0.9 % Sodium 46.4 / 46.4 53.1 / 53.1 Chloride 100 ML @ 5 MG/HR 5 mls/hr IVC .Q24H [facility] Rx#: [id number] Oral 1160 / 1160 360 / 360 Output: Urine 200 / 200 600 / 600 Other: Meal Dinner Breakfast Percent of Meal Consumed 100% 100% Stool Consistency liquid # Voids 1 1 # Bowel Movements 1 Weight 85.457 kg Blood Glucose* 180 262 Patient Weight 11/07/17 23:59 Weight 85.457 kg General: Conversant, No Apparent Distress HEENT: Atraumatic, Normocephaly, Mucus Membranes Moist Neck: No JVD, Normal carotid pulses Cardiac: Reg Rate and Rhythm, Normal S1 and S2, No Murmur Lungs: Normal Breath Sounds, No Wheeze, Rales, Rhonchi Neuro: Alert and responsive, No focal deficits noted Abdomen: Soft, Non-Tender Skin: No rashes noted on visualized skin Musculoskeletal: No Chest Wall Tenderness Extremities: No Clubbing, No Cyanosis, No Edema, Normal Pulses Results 11/05/17 00:42 11/07/17 07:02 Lab Results 11/06/17 11/07/17 11:19 07:02 Sodium 138 Potassium 4.1 Chloride 109 H Carbon Dioxide 23 BUN 9 Creatinine 0.76 Glucose 262 H Calcium 8.4 L TSH 0.927 BMP 11/07/17 Range/Units 07:02 Sodium 138 (136-145) mEq/L Potassium 4.1 (3.5-5.1) mEq/L Chloride 109 H (98-107) mEq/L Carbon Dioxide 23 (23-29) mEq/L BUN 9 (8-23) mg/dL Creatinine 0.76 (0.70-1.30) mg/dL Glucose 262 H (70-105) mg/dL Calcium 8.4 L (8.6-10.3) mg/dL Impressions Echocardiogram 11/05/17 12:42 Impressions: LVEF 60-65%. Indeterminate diastolic function. Normal right ventricular structure and function. Mild tricuspid regurgitation. No pulmonary hypertension by TR gradient. IVC not well visualized. Left Ventricular Wall Motion: Rest Echo Findings All wall segments showed normal motion. Findings: Study Quality * Technically adequate exam. ECG Findings * Normal sinus rhythm. Left Ventricle * LVEF 60-65%. * Normal LV chamber size, wall thickness and function. * Indeterminate diastolic function. Right Ventricle * Normal right ventricular structure and function. Left Atrium * Mildly dilated left atrium. Right Atrium * Normal right atrial size. Mitral Valve * Normal mitral valve structure. * No mitral stenosis. * Trace mitral regurgitation. Aortic Valve * No aortic regurgitation. * Trileaflet aortic valve. * No aortic stenosis. Tricuspid Valve * Normal tricuspid valve structure. * Mild tricuspid regurgitation. Pulmonic Valve * Pulmonic valve is not well visualized. * No pulmonic stenosis. * No pulmonic regurgitation. Pulmonary Artery * Pulmonary artery not well visualized. Aorta * Normally sized aortic root. Pericardium * There is no pericardial effusion present. Interatrial Septum * Interatrial septum not well evaluated. IVC * The IVC is not well evaluated. Active Medications Acetaminophen (Tylenol) 650 mg PO Q6HR PRN PRN Reason: Mild Pain/Fever Stop: 05/05/18 23:30 Albuterol/Ipratropium (Duoneb) 3 ml IH [id number] [facility] Stop: 05/06/18 04:01 Last Admin: 11/07/17 03:34 Dose: 3 ml Apixaban (Eliquis) 5 mg PO BID [facility] Stop: 05/08/18 18:01 Last Admin: 11/07/17 08:28 Dose: 5 mg Atomoxetine HCl (Strattera) 80 mg PO DAILY [facility] Stop: 05/07/18 09:01 Last Admin: 11/07/17 08:28 Dose: 80 mg Atorvastatin Calcium (Lipitor) 40 mg PO HS [facility] Stop: 05/06/18 21:01 Last Admin: 11/06/17 20:56 Dose: 40 mg Dextrose/Water (Dextrose 50% (Syg)) 25 ml IVP AD PRN PRN Reason: Hypoglycemia Stop: 05/05/18 23:28 Diltiazem HCl (Cardizem Cd) 180 mg PO DAILY [facility] Stop: 05/09/18 09:01 Last Admin: 11/07/17 08:55 Dose: 180 mg Glucagon (Glucagen) 1 mg IM ONCE PRN PRN Reason: Hypoglycemia Stop: 05/05/18 23:28 Glucose (Gluctose) 15 gm PO ONCE PRN PRN Reason: Hypoglycemia Stop: 05/05/18 23:28 Last Admin: 11/06/17 16:00 Dose: 15 gm Glucose (Gluctose) 30 gm PO ONCE PRN PRN Reason: Hypoglycemia Stop: 05/05/18 23:28 Dextrose (Dextrose 5%) 1,000 mls @ 100 mls/hr IVC .Q10H PRN PRN Reason: HYPOGLYCEMIA Stop: 05/05/18 23:28 Sodium Chloride (0.9 % Sodium Chloride) 1,000 mls @ 125 mls/hr IVC .Q8H [facility] Stop: 05/05/18 23:46 Last Admin: 11/07/17 08:29 Dose: 125 mls/hr Diltiazem HCl 125 mg/ Sodium (Chloride) 125 mls @ 5 mls/hr IVC .Q24H [facility]; 5 MG/ HR PRN Reason: Protocol Stop: 05/08/18 17:01 Last Titration: 11/07/17 09:56 Dose: 0 mg/hr, 0 mls/hr Insulin Human Lispro (Humalog) 0 units SQ HS [facility] PRN Reason: Protocol Stop: 05/06/18 21:01 Last Admin: 11/06/17 20:54 Dose: Not Given Insulin Human Lispro (Humalog) 0 units SQ TIDAC [facility] PRN Reason: Protocol Stop: 05/06/18 07:31 Last Admin: 11/07/17 08:29 Dose: 10 units Insulin Human Lispro (Humalog) 5 units SQ TIDWM [facility] Stop: 05/07/18 12:01 Last Admin: 11/07/17 08:30 Dose: 5 units Levofloxacin (Levaquin) 750 mg PO Q24H [facility] Stop: 05/08/18 18:01 Last Admin: 11/06/17 18:07 Dose: 750 mg Metformin HCl (Glucophage) 1,000 mg PO BIDWM [facility] PRN Reason: Protocol Stop: 05/07/18 17:01 Last Admin: 11/07/17 08:27 Dose: 1,000 mg Naloxone HCl (Narcan) 0.4 mg IVP Q2MIN PRN PRN Reason: SEE COMMENTS Stop: 05/05/18 23:30 Pharmacy Profile Note (Patient Taking Own Medication) 1 each PO BID [facility] Stop: 05/06/18 21:01 Last Admin: 11/07/17 08:29 Dose: 1 each Venlafaxine HCl (Effexor Xr) 225 mg PO DAILY [facility] Stop: 05/07/18 09:01 Last Admin: 11/07/17 08:27 Dose: 225 mg Zolpidem Tartrate (Ambien) 10 mg PO HS [facility] PRN Reason: Protocol Stop: 05/06/18 21:01 Last Admin: 11/06/17 20:56 Dose: 10 mg - Imaging and Cardiology Echo: report reviewed - EKG Interpretation EKG results cardiology: other (12 hr tele AVG HR 86, now SR) Consult Discharge Plan - Plan Referrals: Brent Vu DO [Primary Care Provider] - Prescriptions: Apixaban [Eliquis] 5 mg PO BID #60 tablet
[2017-11-07 10:44] LABS: Basophils % 0.2 %; Eosinophils % 0.5 %; Hemoglobin 10.1 g/dL (12.9-16.9); Immature Granulocytes % 1.1 % (0-4); Lymphocytes # 0.5 K/mcL (0.6-4.6); Lymphocytes % 7.8 %; Mean Corpuscular HGB Conc 33.7 g/dL (31.6-35.5); Mean Corpuscular Hemoglobin 31.4 pg (28.0-33.3); Mean Corpuscular Volume 93.2 fL (83.0-100.0); Mean Platelet Volume 9.5 fL (9.4-12.4); Monocytes # 0.5 K/mcL (0.0-1.3); Monocytes % 7.7 %; Neutrophils # 5.1 K/mcL (1.6-8.9); Platelet Count 244 K/mcL (140-400); Red Blood Count 3.22 M/mcL (4.19-5.50); Red Cell Distribution Width 13.4 % (11.5-14.5); Segmented Neutrophils % 82.7 %
[2017-11-07 11:14] VITALS: BP 139/72
--- NOTE | 2017-11-07 12:17 | Discharge Summary ---
Date of Encounter: 11/07/17 Time of Encounter: 12:00 - Discharge Diagnosis (1) Acute respiratory failure with hypoxia Priority: Primary Status: Acute Assessment and Plan: - Presented with upper respiratory symptoms including cough, congestion, and fever. - Pneumonia suspected, received Rocephin IV at ED, switched to IV Levaquin, continue current antibiotics. - With improvement in symptoms, was discharged on oral levaquin. Hypoxia resolved on discharge. F/u with PCP (2) Pneumonia Priority: Secondary Status: Acute Assessment and Plan: - Continue IV antibiotics. Pneumonia resolved. Patient was discharged on oral levaquin Qualifiers: Pneumonia type: due to unspecified organism Laterality: bilateral Lung location: lower lobe of lung Qualified Code(s): J18.1 - Lobar pneumonia, unspecified organism (3) Sepsis Priority: Secondary Status: Suspected Assessment and Plan: - UA ruled out UTI, negative flu A/B, negative streppneumo and Legionella. - WBC normal. Afebrile. Lactic acidosis resolved. - Continue IV fluid, continue IV antibiotics. Qualifiers: Sepsis type: sepsis due to unspecified organism Qualified Code(s): A41.9 - Sepsis, unspecified organism (4) Diabetes mellitus Priority: Secondary Status: Chronic Assessment and Plan: - Pending A1c. Add bolus insulin, continue insulin sliding scale. Qualifiers: Diabetes mellitus type: type 2 Diabetes mellitus manager terminal insulin use: without skilled nursing use Diabetes mellitus complication status: without complication Qualified Code(s): E11.9 - Type 2 diabetes mellitus without complications (5) DVT prophylaxis Priority: Secondary Status: Acute Assessment and Plan: - Heparin subcutaneous. Hospital course: Mr. Collins is a 72 year old male - Time Spent with Patient Total time spent providing and/or coordinating discharge services: - Discharge Medications Prescriptions: Apixaban [Eliquis] 5 mg PO BID #60 tablet Diltiazem CD (24hr) [Cardizem CD] 180 mg PO DAILY #60 cap.er.24h levoFLOXacin [Levaquin] 750 mg PO Q24H #3 tablet Home Medications: Atomoxetine HCl [Strattera] 80 mg PO DAILY 11/04/17 [History] Atorvastatin [Lipitor] 40 mg PO HS 11/04/17 [History] Ezetimibe [Zetia] 10 mg PO DAILY 11/04/17 [History] Insulin Regular Human [Humulin R] 4 - 12 unit SQ TID PRN 11/04/17 [History] Memantine HCl 10 mg PO BID 11/04/17 [History] Metformin HCl [Glucophage] 1,000 mg PO BID 11/04/17 [History] Venlafaxine HCl [Venlafaxine HCl ER] 225 mg PO DAILY 11/04/17 [History] Zolpidem [Ambien] 10 mg PO HS 11/04/17 [History] Apixaban [Eliquis] 5 mg PO BID #60 tablet 11/06/17 [Rx] Diltiazem CD (24hr) [Cardizem CD] 180 mg PO DAILY #60 cap.er.24h 11/07/17 [Rx] levoFLOXacin [Levaquin] 750 mg PO Q24H #3 tablet 11/07/17 [Rx] Allergies/Adverse Reactions: 3 Allergy/AdvReac Type Severity Reaction Status Date / Time No Known Allergies Allergy Verified 11/03/17 21:11 Date of admission: 11/03/17 23:29 Primary care physician: Brent Vu Consults: 11/06/17 09:13 Consult to Cardiology [CONS] Routine Comment: Consulting Provider: Cardiology Etresa Reason for Consult: new onset atrial fib Call Completed: No - Constitutional Vitals: Temp Pulse Resp BP Pulse Ox 98.2 F 90 15 139/72 95 11/07/17 11:10 11/07/17 11:10 11/07/17 11:10 11/07/17 11:10 11/07/17 11:10 General appearance: Present: A&O X 3 - Head Head exam: Present: atraumatic, normocephalic - Eye Eye exam: Present: PERRL, conjuntiva pink, sclera anicteric Pupils: Present: PERRL - Neck Neck exam general surgery: Present: supple, trachea midline. Absent: lymphadenopathy - Respiratory Respiratory exam: Present: CTAB. Absent: accessory muscle use, rales, rhonchi, wheezes - Cardiovascular Cardiovascular exam: Present: RRR, +S1, +S2. Absent: diastolic murmur, gallop, rubs, systolic murmur - GI/Abdominal GI/Abdominal exam: Present: normal bowel sounds, soft, no peritoneal signs. Absent: distended, tenderness - Extremities Exam Extremities exam: Present: warm, radial pulses palpable and symmetrical. Absent : calf tenderness, cyanotic, pedal edema - Neurological Exam Neurological exam: Present: CN II-XII intact, oriented X3, no focal deficits. Absent: pronater drift, facial droop, speech deficit - Skin Skin exam: Present: dry, intact - Patient Status Disposition: Home, Self-Care Condition: Fair - Discharge Instructions Instructions: Diltiazem (By mouth), Levofloxacin (By mouth), Apixaban (By mouth ), Atrial Fibrillation (DC), Acute Respiratory Distress Syndrome (DC), Pneumonia (DC) Follow Up With: Brent Vu DO [Primary Care Provider] - (office will call you with an appointment date and time)
== END 2017-11-07 13:57 | disposition home or self-care (01) | DRG 871 ==
LOC: EMEROO 21:04 → 2ANU 21:04
PROVIDERS: ADMIT Internal Medicine; ATTEND Internal Medicine

== ENCOUNTER 2017-12-03 14:27 | Observation (INO) ==
[2017-12-03 15:30] LABS: Basophils % 0.3 %; Eosinophils # 0.1 K/mcL (0.0-0.6); Eosinophils % 1.2 %; Hematocrit 36.5 % (37.5-50.1); Hemoglobin 12.1 g/dL (12.9-16.9); Immature Granulocytes % 0.3 % (0-4); Lymphocytes % 13.3 %; Mean Corpuscular HGB Conc 33.2 g/dL (31.6-35.5); Mean Corpuscular Hemoglobin 30.9 pg (28.0-33.3); Mean Corpuscular Volume 93.4 fL (83.0-100.0); Mean Platelet Volume 10.3 fL (9.4-12.4); Monocytes # 0.4 K/mcL (0.0-1.3); Neutrophils # 6.1 K/mcL (1.6-8.9); Platelet Count 209 K/mcL (140-400); Red Blood Count 3.91 M/mcL (4.19-5.50); Segmented Neutrophils % 79.9 %
[2017-12-03 15:34] LABS: INR 1.6; Prothrombin Time 17.5 Seconds (9.4-12.1)
[2017-12-03 15:37] LABS: Activated Partial Thrombo Time 48.6 Seconds (26.0-36.0)
[2017-12-03] MEDS ORDERED: Aspirin 81 MG TAB.CHEW PO ONE (15:40)
--- NOTE | 2017-12-03 15:43 | Emergency Department Note ---
Disposition Clinical Impression: Chest pain, rule out acute myocardial infarction, Acute kidney injury Chest pain Qualifiers: Chest pain type: unspecified Qualified Code(s): R07.9 - Chest pain, unspecified Disposition: Admitted As Inpatient Condition: Good Instructions: Chest Pain (ED) Referrals: Brent Vu DO [Primary Care Provider] - Forms: ED Satisfaction Letter General Adult HPI - General Chief complaint: ED Chest Pain Stated complaint: Chest Tightness// weakness Time Seen by Provider: 12/03/17 15:04 Nursing Notes Reviewed: Yes Vital Signs Reviewed: Yes - History of Present Illness HPI Narrative: 72-year-old male presents emergency department with concern for chest discomfort. Patient states that this morning he started having some left-sided chest pressure. He states it feels like something is pressing on him. He denies that its reproducible upon palpation. Patient has a history of type 2 diabetes mellitus, hypertension, hyperlipidemia. He denies any history of coronary artery disease. He does report having a history of atrial fibrillation that he currently takes liquids for. Patient reports that his right arm feels weaker. He denies any nausea or vomiting. He also reports a headache that is typical of his normal headaches. He denies that it was exertional in nature. Patient never had chest pain like this before. Pain Scale: 5 - Related Data Home Medications Medication Instructions Recorded Confirmed Atomoxetine HCl [Strattera] 80 mg PO DAILY 11/04/17 11/04/17 Atorvastatin [Lipitor] 40 mg PO HS 11/04/17 11/04/17 Ezetimibe [Zetia] 10 mg PO DAILY 11/04/17 11/04/17 Insulin Regular Human [Humulin R] 4 - 12 unit SQ TID PRN 11/04/17 11/04/17 Memantine HCl 10 mg PO BID 11/04/17 11/04/17 Metformin HCl [Glucophage] 1,000 mg PO BID 11/04/17 11/04/17 Venlafaxine HCl [Venlafaxine HCl 225 mg PO DAILY 11/04/17 11/04/17 ER] Zolpidem [Ambien] 10 mg PO HS 11/04/17 11/04/17 Previous Rx's Medication Instructions Recorded Apixaban [Eliquis] 5 mg PO BID #60 tablet 11/06/17 Diltiazem CD (24hr) [Cardizem CD] 180 mg PO DAILY #60 cap.er.24h 11/07/17 Allergies Allergy/AdvReac Type Severity Reaction Status Date / Time No Known Allergies Allergy Verified 12/03/17 16:26 All systems ED: reviewed and negative except as stated. Review of Systems: As Per HPI Constitutional: Denies: fever Cardiovascular: Reports: chest pain. Denies: palpitations Respiratory: Reports: cough. Denies: dyspnea Gastrointestinal: Denies: abdominal pain, nausea, vomiting Musculoskeletal: Reports: other (right arm weakness). Denies: back pain Integumentary: Denies: rash Neurological: Reports: headache Endocrine: Reports: fatigue Hematological/Lymphatic: Denies: easy bleeding Past Medical History - Past Medical History Medical history: Reports: dementia, diabetes Surgical history: Reports: orthopedic, other, tonsilectomy Psychiatric history: Reports: no psych history - Social History Smoking Status: Never smoker Smokeless Tobacco Status: No Alcohol use: Reports: occasionally Drug use: Reports: none Physical Exam - General Limitations: no limitations - Head Head exam: atraumatic, normocephalic - Eye Eye exam: Present: EOMI. Absent: scleral icterus, conjunctival injection - ENT ENT exam: normal exam, normal oropharynx - Neck Neck exam: Present: trachea midline. Absent: tenderness, meningismus - Chest Chest inspection: Present: normal inspection, symmetric chest wall rise - Respiratory Respiratory exam: Present: normal lung sounds bilaterally. Absent: respiratory distress, accessory muscle use - Cardiovascular Cardiovascular exam: Present: regular rate, normal rhythm, normal heart sounds - Abdominal Exam Abdominal exam: Present: soft, Non-Tender. Absent: distention, guarding, rebound, rigidity - Extremities Exam Extremities exam: Present: normal capillary refill. Absent: pedal edema, calf tenderness - Back Exam Back exam: Present: full ROM - Neurological Exam Neurological exam: Present: alert, oriented X3 - Psychiatric Psychiatric exam: Present: normal affect, normal mood - Skin Skin exam: Present: warm, dry, intact. Absent: rash Course Vital Signs Temperature 97.5 F L 12/03/17 14:33 Pulse Rate 69 12/03/17 14:33 Respiratory Rate 14 12/03/17 14:33 Blood Pressure 144/89 12/03/17 14:33 O2 Sat by Pulse Oximetry 99 12/03/17 14:33 Temperature 97.5 F L 12/03/17 16:27 Pulse Rate 71 12/03/17 16:34 Respiratory Rate 18 12/03/17 16:34 Blood Pressure 106/77 12/03/17 16:34 O2 Sat by Pulse Oximetry 96 12/03/17 16:34 Oxygen Delivery Oxygen Delivery Room Air Medical Decision Making - [facility] Narrative Medical decision making narrative: 72-year-old male presents to the emergency department with concern for chest pressure and right arm weakness that started today. Echocardiogram revealed nonspecific ST changes, but did not reveal any evidence of ischemia. Patient was given aspirin here in the emergency department. He was also given sublingual nitroglycerin. Patient stated that the nitroglycerin relieved his chest pain completely. Patient's chest x-ray does not reveal any acute abnormalities. Troponin was negative. Creatinine was elevated to 1.35. His normal creatinine is 0.7. We have given patient a liter of fluids to address this. This patient should be admitted for further observation and management of his chest pain. I spoke with family and patient at bedside and they agree with the plan for admission. Patient was admitted to the hospitalist. Hemodynamically stable and not in any acute distress at time of admission. Chest X-Ray 12/03/17 14:38 IMPRESSION: No acute abnormality. D/ / 12/03/2017 15:56:15 Duane Chirinos MD / Jennifer Prince Interpreting Provider: Duane Chirinos MD - Lab Data Result diagrams: 12/03/17 15:08 12/03/17 15:08 Lab Results 12/03/17 12/03/17 12/03/17 Range/Units 15:08 15:08 15:08 WBC 7.6 (4.3-11.1) K/mcL RBC 3.91 L (4.19-5.50) M/mcL Hgb 12.1 L (12.9-16.9) g/dL Hct 36.5 L (37.5-50.1) % MCV 93.4 (83.0-100.0) fL MCH 30.9 (28.0-33.3) pg MCHC 33.2 (31.6-35.5) g/dL RDW 13.0 (11.5-14.5) % Plt Count 209 (140-400) K/mcL MPV 10.3 (9.4-12.4) fL Immature Gran % 0.3 (0-4) % Seg Neutrophils % 79.9 % Lymphocytes % 13.3 % Monocytes % 5.0 % Eosinophils % 1.2 % Basophils % 0.3 % Neutrophils # 6.1 (1.6-8.9) K/mcL Lymphocytes # 1.0 (0.6-4.6) K/mcL Monocytes # 0.4 (0.0-1.3) K/mcL Eosinophils # 0.1 (0.0-0.6) K/mcL Basophils # 0.0 (0.0-0.2) K/mcL PT 17.5 H (9.4-12.1) Seconds INR 1.6 APTT 48.6 H (26.0-36.0) Seconds Sodium 137 (136-145) mEq/L Potassium 4.9 (3.5-5.1) mEq/L Chloride 100 (98-107) mEq/L Carbon Dioxide 27 (23-29) mEq/L BUN 28 H (8-23) mg/dL Creatinine 1.35 H (0.70-1.30) mg/dL Est GFR ( Amer) > 60 (> 60) Est GFR (Non-Af Amer) 52 L (> 60) BUN/Creatinine Ratio 21 (6-26) Glucose 187 H (70-105) mg/dL Calculated Osmolality 294 (280-300) Calcium 9.6 (8.6-10.3) mg/dL Troponin I < 0.03 (< 0.04) ng/mL - EKG Data EKG #1 EKG attestation: Yes I reviewed and interpreted this EKG. EKG results narrative: 14:35 Ventricular rate 60 bpm, ID interval 174 ms, QRS duration 91 ms, QT 450 ms, QTC 432 ms, left axis deviation. Sinus rhythm with a ventricular rate of 60 bpm[address] This some nonspecific ST changes when in comparison with a previous study performed on 11/05/2017.
[2017-12-03] MEDS ORDERED: Nitroglycerin 0.4 MG TAB.SUBL SL PRN (15:47)
[2017-12-03 15:56] LABS: BUN/Creatinine Ratio 21 (6-26); Blood Urea Nitrogen 28 mg/dL (8-23); Calcium 9.6 mg/dL (8.6-10.3); Carbon Dioxide 27 mEq/L (23-29); Chloride 100 mEq/L (98-107); Glucose 187 mg/dL (70-105); Osmolality,Calculated 294 (280-300); Potassium 4.9 mEq/L (3.5-5.1); Sodium 137 mEq/L (136-145); Troponin I < 0.03 ng/mL (< 0.04); eGFR For African Americans > 60 (> 60); eGFR For Non-African Americans 52 (> 60)
--- NOTE | 2017-12-03 16:14 | Emergency Department Note ---
Disposition Clinical Impression: Chest pain, rule out acute myocardial infarction Disposition: Admitted As Inpatient Condition: Good Instructions: Chest Pain (ED) Referrals: Brent Vu DO [Primary Care Provider] - Forms: ED Satisfaction Letter General Adult HPI - General Chief complaint: ED Chest Pain Stated complaint: Chest Tightness// weakness Time Seen by Provider: 12/03/17 15:04 Source: patient Mode of arrival: ambulatory Limitations: no limitations Nursing Notes Reviewed: Yes Vital Signs Reviewed: Yes - History of Present Illness Pain Scale: 5 - Related Data Home Medications Medication Instructions Recorded Confirmed Atomoxetine HCl [Strattera] 80 mg PO DAILY 11/04/17 11/04/17 Atorvastatin [Lipitor] 40 mg PO HS 11/04/17 11/04/17 Ezetimibe [Zetia] 10 mg PO DAILY 11/04/17 11/04/17 Insulin Regular Human [Humulin R] 4 - 12 unit SQ TID PRN 11/04/17 11/04/17 Memantine HCl 10 mg PO BID 11/04/17 11/04/17 Metformin HCl [Glucophage] 1,000 mg PO BID 11/04/17 11/04/17 Venlafaxine HCl [Venlafaxine HCl 225 mg PO DAILY 11/04/17 11/04/17 ER] Zolpidem [Ambien] 10 mg PO HS 11/04/17 11/04/17 Previous Rx's Medication Instructions Recorded Apixaban [Eliquis] 5 mg PO BID #60 tablet 11/06/17 Diltiazem CD (24hr) [Cardizem CD] 180 mg PO DAILY #60 cap.er.24h 11/07/17 levoFLOXacin [Levaquin] 750 mg PO Q24H #3 tablet 11/07/17 Allergies Allergy/AdvReac Type Severity Reaction Status Date / Time No Known Allergies Allergy Verified 11/03/17 21:11 Past Medical History - Past Medical History Medical history: Reports: dementia, diabetes Surgical history: Reports: orthopedic, other, tonsilectomy Psychiatric history: Reports: no psych history - Social History Smoking Status: Never smoker Smokeless Tobacco Status: No Alcohol use: Reports: occasionally Drug use: Reports: none Course Vital Signs Temperature 97.5 F L 12/03/17 14:33 Pulse Rate 69 12/03/17 14:33 Respiratory Rate 14 12/03/17 14:33 Blood Pressure 144/89 12/03/17 14:33 O2 Sat by Pulse Oximetry 99 12/03/17 14:33 Temperature 97.5 F L 12/03/17 14:33 Pulse Rate 69 12/03/17 14:33 Respiratory Rate 14 12/03/17 14:33 Blood Pressure 144/89 12/03/17 14:33 O2 Sat by Pulse Oximetry 99 12/03/17 14:33 Oxygen Delivery Oxygen Delivery Room Air Medical Decision Making - Lab Data Result diagrams: 12/03/17 15:08 Lab Results 12/03/17 12/03/17 Range/Units 15:08 15:08 WBC 7.6 (4.3-11.1) K/mcL RBC 3.91 L (4.19-5.50) M/mcL Hgb 12.1 L (12.9-16.9) g/dL Hct 36.5 L (37.5-50.1) % MCV 93.4 (83.0-100.0) fL MCH 30.9 (28.0-33.3) pg MCHC 33.2 (31.6-35.5) g/dL RDW 13.0 (11.5-14.5) % Plt Count 209 (140-400) K/mcL MPV 10.3 (9.4-12.4) fL Immature Gran % 0.3 (0-4) % Seg Neutrophils % 79.9 % Lymphocytes % 13.3 % Monocytes % 5.0 % Eosinophils % 1.2 % Basophils % 0.3 % Neutrophils # 6.1 (1.6-8.9) K/mcL Lymphocytes # 1.0 (0.6-4.6) K/mcL Monocytes # 0.4 (0.0-1.3) K/mcL Eosinophils # 0.1 (0.0-0.6) K/mcL Basophils # 0.0 (0.0-0.2) K/mcL PT 17.5 H (9.4-12.1) Seconds INR 1.6 APTT 48.6 H (26.0-36.0) Seconds Attestation Statement - Attestation Attestation: I, Jhonny Barrett, examined this patient and my medical decision-making was reviewed with the DIRECTOR OF OCCUPATIONAL THERAPY/PA/Advanced Practice Nurse/Resident Physician. I agree with the documented findings, disposition and treatment plan as described except to the extent set forth below. 72-year-old male presents emergency Department with concerns of left-sided chest tightness. Patient states symptoms have been intermittent over the past few days. Patient has a history of recent admission to the hospital for pneumonia, he had multiple episodes of A. fib with RVR at that time. He was started on L Birch after an echocardiogram of the heart. Patient reports he has had multiple episodes over the past few days of left-sided chest tightness, lightheadedness and nausea. Patient states he had an aching in his right arm at the time. Patient denies syncopal episode. EKG showed normal sinus rhythm with rate of 68 without evidence of STEMI. Stress test scheduled for Sunday. We will obtain laboratory evaluation for further workup of cardiac disease. He will likely be admitted to hospital for further care and evaluation.
[2017-12-03] MEDS ORDERED: 0.9 % Sodium Chloride 1,000 ML IVC ONE (16:16)
--- NOTE | 2017-12-03 17:00 | Electrocardiograph Report ---
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
[2017-12-03] MEDS ORDERED: Naloxone 0.4 MG/ML INJ IVP PRN (17:17)
[2017-12-03] MEDS ORDERED: Ondansetron 4 MG/2 ML VIAL IVP PRN (17:27)
--- NOTE | 2017-12-03 17:35 | Internal Med History&Physical ---
<Garima Tam - Last Filed: 12/03/17 17:48> Date of Encounter: 12/03/17 Time of Encounter: 17:34 Internal Medicine - H&P: HPI Chief complaint: Chest pain Admitted From: Home Plans for Post Hospital Care: Home History of present illness: Mr. Collins is a 72 year old male with history of PNA, Afib, chest pain and DM. Ptaient began to have chest pain today that was persistent , it was abated with nitro in the ED. The patient is currently pain-free and described the pain as dull with heavy pressure. The patient indicated he has had CP in the past and was scheduled to have a stress test on Sunday with Dr. Cummings. Spoke with cardiology, Dr. Salgado. She suggested that I get a stress on the patient and consult cardiology if stress is positive. The patient here in September for PNA, he indicated that he was diagnosed with Afib at that time and was started on Eliquis. Today EKG showed Sr with SA rate is 68, marked left axis deviation, probable old [place]. Trop is < 0.03. Past Med Surg Social Fam HX - Past Medical History Medical history: dementia, diabetes Psychiatric history: no psych history - Past Surgical History Surgical History: orthopedic, other, tonsilectomy - Social History Smoking Status: Never smoker Smokeless Tobacco Status: No Alcohol use: occasionally Drug use: none - Family History Mother Living Status: Hx Family Cancer: Yes (Lung CA) Hx Family Endocrine Disorder: Yes (Diabetes) Father Living Status: Hx Family Respiratory Disorders: Yes (Chronic PNA) Internal Medicine - H&P: Meds Atomoxetine HCl [Strattera] 80 mg PO DAILY 11/04/17 [History] Atorvastatin [Lipitor] 40 mg PO HS 11/04/17 [History] Ezetimibe [Zetia] 10 mg PO DAILY 11/04/17 [History] Insulin Regular Human [Humulin R] 4 - 12 unit SQ TID PRN 11/04/17 [History] Memantine HCl 10 mg PO BID 11/04/17 [History] Metformin HCl [Glucophage] 1,000 mg PO BID 11/04/17 [History] Venlafaxine HCl [Venlafaxine HCl ER] 225 mg PO DAILY 11/04/17 [History] Zolpidem [Ambien] 10 mg PO HS 11/04/17 [History] Apixaban [Eliquis] 5 mg PO BID #60 tablet 11/06/17 [Rx] Diltiazem CD (24hr) [Cardizem CD] 180 mg PO DAILY #60 cap.er.24h 11/07/17 [Rx] 3 Allergy/AdvReac Type Severity Reaction Status Date / Time No Known Allergies Allergy Verified 12/03/17 16:26 All Systems PM: A 10-system review of systems was performed and is negative for pertinent findings except as documented above in the HPI. - Constitutional Constitutional: no chills, no fever(s), no night sweats - EENT Eyes: no change in vision, no discharge, no pain, no photophobia Ears: no ear discharge, no ear pain, no tinnitus Nose, mouth and throat: no dysphagia, no nasal discharge, no neck pain, no sore throat - Cardiovascular Cardiovascular ROS IM: chest pain, no diaphoresis, no dyspnea, no lightheadedness, no palpitations - Respiratory Respiratory: no cough, no dyspnea, no wheezing, no excessive phlegm production - Gastrointestinal Gastrointestinal: no abdominal pain, no diarrhea, no hematemesis, no hematochezia, no melena, no nausea, no vomiting - Musculoskeletal Musculoskeletal ROS IM: no numbness, no tingling - Integumentary Integumentary IM: no rash, no unusual bruising - Neurological Neurological ROS: dizziness, no confusion, no convulsions, no focal weakness, no numbness, no tingling, no tremor(s) - Hematologic/Lymphatic Hematologic/Lymphatic: no easy bruising - Constitutional Vitals: Temp Pulse Resp BP Pulse Ox 97.5 F L 71 18 106/77 96 12/03/17 16:27 12/03/17 16:34 12/03/17 16:34 12/03/17 16:34 12/03/17 16:34 General appearance: Present: A&O X 3 - Head Head exam: Present: atraumatic, normocephalic - Eye Eye exam: Present: PERRL, conjuntiva pink, sclera anicteric Pupils: Present: PERRL - Neck Neck exam general surgery: Present: supple, trachea midline. Absent: lymphadenopathy - Respiratory Respiratory exam: Present: CTAB. Absent: accessory muscle use, rales, rhonchi, wheezes - Cardiovascular Cardiovascular exam: Present: RRR, +S1, +S2. Absent: diastolic murmur, gallop, rubs, systolic murmur - GI/Abdominal GI/Abdominal exam: Present: normal bowel sounds, soft, no peritoneal signs. Absent: distended, tenderness - Extremities Exam Extremities exam: Present: warm, radial pulses palpable and symmetrical. Absent : calf tenderness, cyanotic, pedal edema - Neurological Exam Neurological exam: Present: CN II-XII intact, oriented X3, no focal deficits. Absent: pronater drift, facial droop, speech deficit - Skin Skin exam: Present: dry, intact Internal Med - H&P Results - Labs CBC & Chem 7: 12/03/17 15:08 12/03/17 15:08 - Assessment and plan (1) Chest pain Current Visit: Yes Status: Acute Assessment and plan: Unsure of the etiology of the patient's chest pain. Apparently he goes in and out of Afib Cardiac monitoring Serial cardiac troponins Plan for stress test in am NPO after mn Please consult cardiology (Dr. Cummings) if positive. FLP in am Qualifiers: Chest pain type: unspecified Qualified Code(s): R07.9 - Chest pain, unspecified (2) Elevated serum creatinine Current Visit: Yes Status: Acute Assessment and plan: Creatinine and BUN elevated possibly due to dehydration, will start IVF's Monitor daily CBC and BMP (3) Diabetes mellitus Current Visit: Yes Status: Chronic Assessment and plan: Accu checks AC/HS, with moderate scale humalog insulin coverage Blood sugar goal while inpatient is under 200 FLP in am Qualifiers: Diabetes mellitus type: type 2 Diabetes mellitus half-way insulin use: without half-way use Diabetes mellitus complication status: without complication Qualified Code(s): E11.9 - Type 2 diabetes mellitus without complications - Time Spent With Patient Total time spent is greater than 50% in coordination of care (as documented) at patient's floor/unit and/or counseling patient: <Ben Blakely - Last Filed: 12/03/17 18:37> Date of Encounter: 12/03/17 Internal Medicine - H&P: HPI History of present illness: Mr. Collins is a 72 year old male All Systems PM: A 10-system review of systems was performed and is negative for pertinent findings except as documented above in the HPI. - Constitutional Vitals: Temp Pulse Resp BP Pulse Ox 97.4 F L 65 16 135/64 97 12/03/17 17:48 12/03/17 17:48 12/03/17 17:48 12/03/17 17:48 12/03/17 17:48 Internal Med - H&P Results - Labs CBC & Chem 7: 12/03/17 15:08 12/03/17 15:08 - Attending Attestation I have personally performed a face to face evaluation on this patient. I have reviewed and agree with the care plan. History and Exam by me shows: 72 yo male who was seen about 2 weeks ago for pneumonia and developed A. fib RVR and was started on Eliquis and notable patsy. Due to new A. fib was referred to Dr. Ross of cardiology for outpatient management. As part of outpatient evaluation, he has a stress test planned for this Sunday. However he developed left-sided chest pain this morning shortly after waking up from that. Described as pressure sensation, 5 out of 10, radiation to the lower left arm possibly. Pain improved with nitroglycerin and aspirin. He denies any palpitations symptoms EKG personally reviewed with rate 68, normal sinus rhythm Assessment and plan Chest pain rule out - Trend troponin, telemetry - Cardiology recommended stress test in the morning. Further management pending results of stress test - Time Spent With Patient Total time spent is greater than 50% in coordination of care (as documented) at patient's floor/unit and/or counseling patient:
[2017-12-03] MEDS ORDERED: Dextrose Gel 15 GM/37.5 ML TUBE PO PRN ×2 (17:56)
[2017-12-03] MEDS ORDERED: D5% in Water 1,000 ML IVC PRN (17:56)
[2017-12-03] MEDS ORDERED: *HR* Dextrose 50 % in Water (Syg) 50 ML SYRINGE IVP PRN (17:56)
[2017-12-03] MEDS: 0.9 % Sodium Chloride 1,000 ML IVC SCH ×2 (18:31→19:30)
[2017-12-03] MEDS: Apixaban 5 MG TABLET PO SCH (19:31)
[2017-12-03] MEDS: Insulin LISPRO 300 UNITS/3 ML VIAL SQ SCH (23:29)
[2017-12-04 05:02] LABS: Basophils % 0.3 %; Eosinophils # 0.1 K/mcL (0.0-0.6); Eosinophils % 1.9 %; Hematocrit 35.5 % (37.5-50.1); Immature Granulocytes % 0.3 % (0-4); Lymphocytes # 1.1 K/mcL (0.6-4.6); Lymphocytes % 14.6 %; Mean Corpuscular HGB Conc 33.8 g/dL (31.6-35.5); Mean Corpuscular Hemoglobin 31.4 pg (28.0-33.3); Mean Corpuscular Volume 92.9 fL (83.0-100.0); Mean Platelet Volume 10.9 fL (9.4-12.4); Monocytes # 0.5 K/mcL (0.0-1.3); Neutrophils # 5.5 K/mcL (1.6-8.9); Platelet Count 201 K/mcL (140-400); Red Blood Count 3.82 M/mcL (4.19-5.50); Red Cell Distribution Width 12.9 % (11.5-14.5); Segmented Neutrophils % 75.9 %
[2017-12-04 05:23] LABS: Chol/HDL Ratio 2.1 (0-4.9)
[2017-12-04 05:26] LABS: BUN/Creatinine Ratio 19 (6-26); Blood Urea Nitrogen 27 mg/dL (8-23); Calcium 9.3 mg/dL (8.6-10.3); Carbon Dioxide 27 mEq/L (23-29); Chloride 106 mEq/L (98-107); Glucose 165 mg/dL (70-105); Magnesium 1.9 mg/dL (1.6-2.6); Osmolality,Calculated 301 (280-300); Potassium 4.4 mEq/L (3.5-5.1); Sodium 141 mEq/L (136-145); eGFR For African Americans > 60 (> 60); eGFR For Non-African Americans 50 (> 60)
[2017-12-04] MEDS ORDERED: Regadenoson 0.4 MG/5 ML SYRINGE IVP ONE (07:38)
[2017-12-04] MEDS: Venlafaxine XR (24 HR) 75 MG CAP.ER.24H PO SCH (09:40)
[2017-12-04] MEDS: Diltiazem CD (24hr) 180 MG CAPSULE PO SCH (09:41)
[2017-12-04] MEDS: Apixaban 5 MG TABLET PO SCH ×2 (09:41→21:45)
[2017-12-04] MEDS: Insulin LISPRO 300 UNITS/3 ML VIAL SQ SCH ×4 (09:41→21:52)
[2017-12-04] MEDS: (Ezetimibe [Zetia] 10 MG) PO SCH (09:45)
[2017-12-04] MEDS: 0.9 % Sodium Chloride 1,000 ML IVC SCH (15:07)
[2017-12-04] MEDS ORDERED: Saline Nasal Spray 44 ML BOTTLE NS PRN (18:07)
--- NOTE | 2017-12-04 18:08 | Internal Med Progress Note ---
Date of Encounter: 12/04/17 Time of Encounter: 14:00 - Assessment and plan (1) Chest pain Current Visit: Yes Status: Acute Assessment and plan: History of paroxysmal atrial fibrillation continue cardiac monitoring Torey troponins are negative 3 Cardiac stress test was negative for ischemia or infarct. I did discuss results with Dr. Morales suggest follow-up with cardiology as outpatient. Presently denies any chest pain at this time Qualifiers: Chest pain type: unspecified Qualified Code(s): R07.9 - Chest pain, unspecified (2) Acute kidney injury Current Visit: Yes Status: Acute Assessment and plan: 1 creatinine 1.35 on presentation 1.40 today we will give IV fluids-possibly related to dehydration monitor blood pressure We will obtain renal ultrasound if no improvement- urinalysis (3) Elevated serum creatinine Current Visit: Yes Status: Acute (4) Diabetes mellitus Current Visit: Yes Status: Chronic Qualifiers: Diabetes mellitus type: type 2 Diabetes mellitus half-way insulin use: without half-way use Diabetes mellitus complication status: without complication Qualified Code(s): E11.9 - Type 2 diabetes mellitus without complications (5) PAF (paroxysmal atrial fibrillation) Current Visit: No Status: Acute Assessment and plan: Presently rate controlled sinus rhythm continue with Cardizem and Eliquis (6) DVT prophylaxis Current Visit: No Status: Acute Assessment and plan: on Eliquis - Time Spent With Patient Total time spent is greater than 50% in coordination of care (as documented) at patient's floor/unit and/or counseling patient: - Subjective Interval history: I did see and examine the patient at bedside. Patient did undergo cardiac nuclear stress test today-which was negative for ischemia or infarct. I did review findings with the patient who verbalized understanding. I did advise patient that he would be staying overnight since he continues to have elevation in creatinine and receiving IV fluids. Patient verbalized understanding of treatment plan - Constitutional Vitals: Temp Pulse Resp BP Pulse Ox 98.0 F 64 14 125/67 97 12/04/17 15:36 12/04/17 15:36 12/04/17 15:36 12/04/17 15:36 12/04/17 15:36 General appearance: Present: A&O X 3 - Head Head exam: Present: atraumatic, normocephalic - Eye Eye exam: Present: PERRL, conjuntiva pink, sclera anicteric Pupils: Present: PERRL - Neck Neck exam general surgery: Present: supple, trachea midline. Absent: lymphadenopathy - Respiratory Respiratory exam: Present: CTAB. Absent: accessory muscle use, rales, rhonchi, wheezes - Cardiovascular Cardiovascular exam: Present: RRR, +S1, +S2. Absent: diastolic murmur, gallop, rubs, systolic murmur - GI/Abdominal GI/Abdominal exam: Present: normal bowel sounds, soft, no peritoneal signs. Absent: distended, tenderness - Extremities Exam Extremities exam: Present: warm, radial pulses palpable and symmetrical. Absent : calf tenderness, cyanotic, pedal edema - Neurological Exam Neurological exam: Present: CN II-XII intact, oriented X3, no focal deficits. Absent: pronater drift, facial droop, speech deficit - Skin Skin exam: Present: dry, intact Internal Medicine: Result - Labs CBC & Chem 7: 12/04/17 03:56 12/04/17 03:56 Labs: Short CBC 12/04/17 Range/Units 03:56 WBC 7.2 (4.3-11.1) K/mcL Hgb 12.0 L (12.9-16.9) g/dL Hct 35.5 L (37.5-50.1) % Plt Count 201 (140-400) K/mcL Neutrophils # 5.5 (1.6-8.9) K/mcL BMP 12/04/17 03:56 Sodium 141 Potassium 4.4 Chloride 106 Carbon Dioxide 27 BUN 27 H Creatinine 1.40 H Glucose 165 H Calcium 9.3 Cardiac Enzymes 12/03/17 12/04/17 Range/Units 21:08 03:56 Troponin I < 0.03 < 0.03 (< 0.04) ng/mL - ABG Interpretation ABG results: PT/INR, D-dimer PT 17.5 Seconds (9.4-12.1) H 12/03/17 15:08 Consult Discharge Plan - Plan Referrals: Brent Vu DO [Primary Care Provider] -
[2017-12-04 20:40] LABS: Bilirubin,Urine Negative (Negative); Blood,Urine Negative (Negative); Clarity,Urine Clear (Clear); Color,Urine Yellow (Yellow); Glucose,Urine (UA) 250 mg/dL (Normal); Ketones,Urine Negative (Negative); Leukocyte Esterase,Urine Negative (Negative); Nitrite,Urine Negative (Negative); Protein,Urine Negative (Neg-Trace); Specific Gravity,Urine 1.015 (1.010-1.025); Urobilinogen,Urine Normal (Normal)
[2017-12-05] MEDS: 0.9 % Sodium Chloride 1,000 ML IVC SCH (06:51)
[2017-12-05 07:27] LABS: Basophils % 0.3 %; Eosinophils # 0.1 K/mcL (0.0-0.6); Eosinophils % 1.6 %; Hemoglobin 11.1 g/dL (12.9-16.9); Immature Granulocytes % 0.3 % (0-4); Lymphocytes # 0.9 K/mcL (0.6-4.6); Lymphocytes % 14.1 %; Mean Corpuscular HGB Conc 32.6 g/dL (31.6-35.5); Mean Corpuscular Hemoglobin 29.8 pg (28.0-33.3); Mean Corpuscular Volume 91.4 fL (83.0-100.0); Mean Platelet Volume 10.6 fL (9.4-12.4); Monocytes # 0.4 K/mcL (0.0-1.3); Monocytes % 6.3 %; Neutrophils # 4.8 K/mcL (1.6-8.9); Platelet Count 179 K/mcL (140-400); Red Blood Count 3.72 M/mcL (4.19-5.50); Segmented Neutrophils % 77.4 %
[2017-12-05 07:46] LABS: BUN/Creatinine Ratio 20 (6-26); Blood Urea Nitrogen 24 mg/dL (8-23); Calcium 8.7 mg/dL (8.6-10.3); Carbon Dioxide 25 mEq/L (23-29); Chloride 107 mEq/L (98-107); Glucose 190 mg/dL (70-105); Osmolality,Calculated 301 (280-300); Sodium 141 mEq/L (136-145); eGFR For African Americans > 60 (> 60); eGFR For Non-African Americans 58 (> 60)
[2017-12-05] MEDS: Diltiazem CD (24hr) 180 MG CAPSULE PO SCH (08:27)
[2017-12-05] MEDS: Apixaban 5 MG TABLET PO SCH (08:27)
[2017-12-05] MEDS: Venlafaxine XR (24 HR) 75 MG CAP.ER.24H PO SCH (08:27)
[2017-12-05] MEDS: Insulin LISPRO 300 UNITS/3 ML VIAL SQ SCH ×2 (08:28→11:30)
[2017-12-05] MEDS: (Ezetimibe [Zetia] 10 MG) PO SCH (08:32)
[2017-12-05 11:19] VITALS: BP 150/78
--- NOTE | 2017-12-05 14:45 | Discharge Summary ---
- NOTES TO OUTPATIENT PROVIDER Notes to Outpatient Provider: Patient underwent cardiac nuclear stress test which was negative for ischemia or infarct. He did have an elevated creatinine- he was given IV fluids which did improve-monitor chemistry. Patient has had GERD symptoms-started on Prilosec may need outpatient EGD Orders not resulted at time of discharge: Pending orders 12/03/17 17:36 NM nahid perf SPECT multi [NM] Routine Date of Encounter: 12/05/17 Time of Encounter: 14:43 - Discharge Diagnosis (1) Chest pain Priority: Primary Status: Acute Qualifiers: Chest pain type: unspecified Qualified Code(s): R07.9 - Chest pain, unspecified (2) Acute kidney injury Priority: Secondary Status: Acute (3) Elevated serum creatinine Priority: Secondary Status: Acute (4) Diabetes mellitus Priority: Secondary Status: Chronic Qualifiers: Diabetes mellitus type: type 2 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 Collins is a 72 year old male past medical history of pneumonia A. fib chest pain and diabetes. Patient presented to the emergency department after experiencing persistent chest pain that was abated with nitroglycerin. He described the pain as dull heavy pressure he has had chest pain in the past and was actually scheduled for a stress test on Sunday with Dr. Cummings. Troponins were negative 3 EKG with no acute changes. ER did speak with cardiology Dr noland who advised stress test and consult cardiology if stress is positive. Patient was recently diagnosed with A. fib and is on Eliquis. He did have an elevated creatinine. Patient does admit that he has not been drinking a lot of water and has been consuming a lot of soda. Patient did undergo cardiac stress test which was negative for any ischemia or infarct. He did receive IV fluids and his creatinine returned to baseline. Patient did complain of some GERD symptoms did place patient on Prilosec and advised patient to undergo EGD as outpatient. Also advised patient to follow-up with primary care physician to monitor creatinine. Encouraged patient to consume water as well as he was given information concerning diabetic and low-fat diet. I did give patient prescription for Prilosec and advised patient to continue medications as prescribed. Advised patient to follow up with cardiology as well as primary care physician since these providers know him best I can adjust the medications accordingly. Patient verbalized understanding he is hemodynamically stable and ready for discharge. Discharge discussed with: patient - Time Spent with Patient Total time spent providing and/or coordinating discharge services: - Discharge Medications Prescriptions: Omeprazole [PriLOSEC] 20 mg PO DAILY #30 cap Home Medications: Atomoxetine HCl [Strattera] 80 mg PO DAILY 11/04/17 [History] Atorvastatin [Lipitor] 40 mg PO HS 11/04/17 [History] Ezetimibe [Zetia] 10 mg PO DAILY 11/04/17 [History] Insulin Regular Human [Humulin R] 4 - 12 unit SQ TID PRN 11/04/17 [History] Memantine HCl 10 mg PO BID 11/04/17 [History] Metformin HCl [Glucophage] 1,000 mg PO BID 11/04/17 [History] Venlafaxine HCl [Venlafaxine HCl ER] 225 mg PO DAILY 11/04/17 [History] Zolpidem [Ambien] 10 mg PO HS 11/04/17 [History] Apixaban [Eliquis] 5 mg PO BID #60 tablet 11/06/17 [Rx] Diltiazem CD (24hr) [Cardizem CD] 180 mg PO DAILY #60 cap.er.24h 11/07/17 [Rx] Omeprazole [PriLOSEC] 20 mg PO DAILY #30 cap 12/05/17 [Rx] Allergies/Adverse Reactions: 3 Allergy/AdvReac Type Severity Reaction Status Date / Time No Known Allergies Allergy Verified 12/03/17 16:26 Date of admission: 12/03/17 16:58 Primary care physician: Brent Vu Discharging clinician: Lena Pedroza Anticipated date of discharge: 12/05/17 - Constitutional Vitals: Temp Pulse Resp BP Pulse Ox 97.8 F 76 14 150/78 98 12/05/17 11:18 12/05/17 11:18 12/05/17 11:18 12/05/17 11:18 12/05/17 11:18 General appearance: Present: A&O X 3 - Head Head exam: Present: atraumatic, normocephalic - Eye Eye exam: Present: PERRL, conjuntiva pink, sclera anicteric Pupils: Present: PERRL - Neck Neck exam general surgery: Present: supple, trachea midline. Absent: lymphadenopathy - Respiratory Respiratory exam: Present: CTAB. Absent: accessory muscle use, rales, rhonchi, wheezes - Cardiovascular Cardiovascular exam: Present: RRR, +S1, +S2. Absent: diastolic murmur, gallop, rubs, systolic murmur - GI/Abdominal GI/Abdominal exam: Present: normal bowel sounds, soft, no peritoneal signs. Absent: distended, tenderness - Extremities Exam Extremities exam: Present: warm, radial pulses palpable and symmetrical. Absent : calf tenderness, cyanotic, pedal edema - Neurological Exam Neurological exam: Present: CN II-XII intact, oriented X3, no focal deficits. Absent: pronater drift, facial droop, speech deficit - Skin Skin exam: Present: dry, intact - Patient Status Disposition: Home, Self-Care Condition: Good Functional capacity at discharge: independent ambulation Overall status at discharge: patient is back to baseline - Discharge Instructions Instructions: Chest Pain (DC), Diabetes Mellitus Type 2 in Adults (DC), Meal Planning with Diabetes Exchanges (DC), Meal Planning with Diabetes Exchanges ( GEN) Follow Up With: Brent Vu DO [Primary Care Provider] - 12/18/17 1:00 pm Yogesh Ross MD [Partnered Physician] - Additional Instructions: Follow-up appointments: If there is not an appointment listed below, please call your physician and schedule a follow-up appointment. If you have congestive heart failure and your symptoms return, make an appointment with your physician. Medication List: Carry an up to date list of medications you are taking at all time. We have given you an updated medication list including any new medications that you have been prescribed. Please provide that list to your primary provider Symptoms: If your condition changes or you experience any of the following symptoms, notify your physician immediately: Unusual or worsening pain, fever, persistent nausea and vomiting, bleeding, increase in swelling (especially in your legs), sudden weight gain, extreme dizziness, chest pain, increased drainage or redness from a wound or incision. Go to the emergency department if you experience a problem with breathing. Weights: If you have a history of swelling or shortness of breath, weigh yourself daily and notify your physician if you have a weight gain of two or more pounds in one day or 5 or more pounds in a week. If you experience any of the warning signs for stroke: Sudden numbness or weakness of the face, arm or leg; especially on one side of the body, sudden confusion, trouble speaking or understanding, sudden trouble seeing in one or both eyes, sudden trouble walking, dizziness, loss of balance or coordination, sudden sever headache with no cause; Call 911 or go to the emergency room. Stroke is a medical emergency. Some risk factors for stroke: Age, cigarette smoking, diabetes, excessive alcohol consumption, family history , high blood pressure, overweight, physical inactivity, prior stroke, heart attack, diagnosis of carotid artery stenosis or other artery disease. If you smoke, STOP: Smoking or tobacco use significantly increases your risk of heart and lung disease. Your chance of disease greatly increases if you continue to smoke. For more information, call the [place] tobacco quit line for smoking cessation QUIT-NOW ( ) - Diet and Activity Activity: increase activity as tolerated Diet: diabetic diet, low fat, low cholesterol
== END 2017-12-05 15:27 | disposition home or self-care (01) ==
LOC: EMEROO 14:27 → 3BNU 14:27
PROVIDERS: ADMIT Internal Medicine Hematology & Oncology; ATTEND Internal Medicine Hematology & Oncology

== ENCOUNTER 2018-10-03 14:25 | Observation (INO) ==
--- NOTE | 2018-10-03 17:03 | Emergency Department Note ---
Disposition Clinical Impression: Lightheadedness, Elevated troponin Diabetes mellitus Qualifiers: Diabetes mellitus type: type 2 Diabetes mellitus retirement insulin use: with retirement use Diabetes mellitus complication status: with unspecified complications Qualified Code(s): E11.8 - Type 2 diabetes mellitus with un specified complications Disposition: Admitted As Inpatient Condition: Fair Time of Disposition: 18:13 General Adult HPI - General Chief complaint: ED Dizziness Stated complaint: Dizziness, Stent placed sunday Time Seen by Provider: 10/03/18 16:30 Source: patient, family Limitations: no limitations Nursing Notes Reviewed: Yes Vital Signs Reviewed: Yes - History of Present Illness HPI Narrative: 73 yo male with PMHx of DM, coronary artery disease with placement of one stent on 09/30/2018 presents to the emergency department with near syncope for the past 2 days. He was recently discharged home with changes to his medications including new Plavix and an increased dose of Ranexa. For the past 2 days he has felt like he was going to pass out, being unsteady on his feet and needing to use the wall to help him walk from room to room. He denies any fevers, chest pain, shortness of breath, abdominal pain, nausea and vomiting, diarrhea. He has had a decreased appetite recently. He also admits to less sleep for the past several days. He denies syncope and any injury. Pain Scale: 4 - Related Data Home Medications Medication Instructions Recorded Confirmed Atomoxetine HCl [Strattera] 80 mg PO DAILY 11/04/17 09/30/18 Atorvastatin [Lipitor] 40 mg PO HS 11/04/17 09/30/18 Ezetimibe [Zetia] 10 mg PO DAILY 11/04/17 09/30/18 Insulin Regular Human [Humulin R] 4 - 14 unit SQ TID PRN 11/04/17 09/30/18 Metformin HCl [Glucophage] 1,000 mg PO BID 11/04/17 09/30/18 Venlafaxine HCl [Venlafaxine HCl 225 mg PO DAILY 11/04/17 09/30/18 ER] Aspirin [Adult Aspirin] 81 mg PO DAILY 09/18/18 09/30/18 Isosorbide MONOnitrate (24 HR) 30 mg PO DAILY 09/18/18 09/30/18 [Imdur] Memantine [Namenda] 10 mg PO BID 09/18/18 09/30/18 Ranitidine HCl [Acid Binder Coverstitch] 150 mg PO BID 09/18/18 09/30/18 Metoprolol Succinate [Toprol Xl] 50 mg PO DAILY 09/28/18 09/30/18 Melatonin 10 mg PO HS 09/30/18 09/30/18 Nitroglycerin [Nitrostat] 0.4 mg SL Q5MIN PRN MDD 3DOSES 09/30/18 09/30/18 Previous Rx's Medication Instructions Recorded Apixaban [Eliquis] 5 mg PO BID #60 tablet 11/06/17 Clopidogrel [Plavix] 75 mg PO DAILY #30 tablet 10/01/18 Ranolazine [Ranexa] 1,000 mg PO BID #120 tab.er.12h 10/01/18 Allergies Allergy/AdvReac Type Severity Reaction Status Date / Time No Known Allergies Allergy Verified 10/03/18 14:42 All systems ED: reviewed and negative except as stated. Review of Systems: As Per HPI Constitutional: Reports: weakness. Denies: fever Eyes: Denies: vision change Cardiovascular: Denies: chest pain, palpitations, dyspnea on exertion Respiratory: Denies: cough, dyspnea, wheezes Gastrointestinal: Denies: abdominal pain, nausea, vomiting Musculoskeletal: Denies: back pain, neck pain Integumentary: Denies: rash Neurological: Reports: headache, other (tinitus). Denies: vertigo Endocrine: Denies: fatigue Past Medical History - Past Medical History Attestation: Yes The following information was validated with the patient. Medical history: Reports: coronary artery disease, dementia, diabetes Surgical history: Reports: orthopedic, other, tonsilectomy Psychiatric history: Reports: PTSD - Social History Smoking Status: Never smoker Smokeless Tobacco Status: No Alcohol use: Reports: occasionally Drug use: Reports: none Physical Exam - General Limitations: no limitations General appearance: alert, in no apparent distress - Head Head exam: atraumatic, normocephalic - Eye Eye exam: Present: normal appearance, PERRL, EOMI - ENT ENT exam: normal exam, normal oropharynx - Neck Neck exam: Present: normal inspection. Absent: tenderness, lymphadenopathy - Chest Chest inspection: Present: normal inspection - Respiratory Respiratory exam: Present: normal lung sounds bilaterally - Cardiovascular Cardiovascular exam: Present: regular rate, normal rhythm - Abdominal Exam Abdominal exam: Present: soft, Non-Tender. Absent: distention, guarding, rebound, rigidity - Extremities Exam Extremities exam: Present: normal inspection. Absent: tenderness, pedal edema - Neurological Exam Neurological exam: Present: alert, oriented X3 - Psychiatric Psychiatric exam: Present: normal affect, normal mood - Skin Skin exam: Present: warm, dry, intact Course Vital Signs Temperature 97.6 F 10/03/18 14:43 Pulse Rate 65 10/03/18 14:43 Respiratory Rate 18 10/03/18 14:43 Blood Pressure 107/68 10/03/18 14:43 O2 Sat by Pulse Oximetry 100 10/03/18 14:43 Temperature 97.6 F 10/03/18 14:43 Pulse Rate 65 10/03/18 14:43 Respiratory Rate 18 10/03/18 14:43 Blood Pressure 107/68 10/03/18 14:43 O2 Sat by Pulse Oximetry 100 10/03/18 14:43 Oxygen Delivery Oxygen Delivery Room Air Medical Decision Making - MDM Narrative Medical decision making narrative: This patient presents with near syncope after a heart cath on 09/30 and increase in his medications. This could be secondary to his diabetes, a medication side effect, or related to his recent catheter. He states he has been taking all his medications as prescribed at we will obtain another cardiac workup on the patient. 180 - lab work is unremarkable except for an elevated troponin of 0.28. The patient has never had an elevated troponin before. His EKG is unchanged from previous. The troponin could be secondary to the recent heart catheter but this cannot be guaranteed. Chest x-ray did not show any acute findings. Patient will be admitted to the hospitalist to trend troponins. 1809 - Pt has been accepted by hospitalist at this time - Medical Records Medical records reviewed: Yes I reviewed the patient's medical records. - Lab Data Lab results reviewed: Yes I reviewed the patient's lab results. Result diagrams: 10/03/18 16:54 10/03/18 16:54 Lab Results 10/03/18 10/03/18 10/03/18 Range/Units 16:54 16:54 16:54 WBC 6.5 (4.3-11.1) K/mcL RBC 3.07 L (4.19-5.50) M/mcL Hgb 9.5 L (12.9-16.9) g/dL Hct 28.6 L (37.5-50.1) % MCV 93.2 (83.0-100.0) fL MCH 30.9 (28.0-33.3) pg MCHC 33.2 (31.6-35.5) g/dL RDW 12.8 (11.5-14.5) % Plt Count 216 (140-400) K/mcL MPV 9.9 (9.4-12.4) fL Immature Gran % 0.2 (0-4) % Seg Neutrophils % 78.7 % Lymphocytes % 12.5 % Monocytes % 7.7 % Eosinophils % 0.6 % Basophils % 0.3 % Neutrophils # 5.1 (1.6-8.9) K/mcL Lymphocytes # 0.8 (0.6-4.6) K/mcL Monocytes # 0.5 (0.0-1.3) K/mcL Eosinophils # 0.0 (0.0-0.6) K/mcL Basophils # 0.0 (0.0-0.2) K/mcL Sodium 137 (136-145) mEq/L Potassium 4.8 (3.5-5.1) mEq/L Chloride 103 (98-107) mEq/L Carbon Dioxide 25 (23-29) mEq/L BUN 28 H (8-23) mg/dL Creatinine 1.40 H (0.70-1.30) mg/dL Est GFR ( Amer) > 60 (> 60) Est GFR (Non-Af Amer) 50 L (> 60) BUN/Creatinine Ratio 20 (6-26) Glucose 152 H (70-105) mg/dL Calculated Osmolality 292 (280-300) Lactic Acid 2.0 (0.5-2.2) mmol/L Calcium 9.1 (8.6-10.3) mg/dL Troponin I 0.28 H* (< 0.04) ng/mL - Radiology Data Radiology results reviewed: Yes I reviewed the patient's radiology results. - EKG Data EKG #1 EKG attestation: Yes I reviewed and interpreted this EKG. EKG results narrative: EKG obtained at 14:33 on 10/03/2018 for jugular rate 61 bpm, MD interval 219, QRS duration 118, QT 473, QTC 477 Sinus rhythm with first-degree heart block. No ST segment elevations or depressions. No other T-wave abnormalities. Unchanged when compared to previous EKG dated 09/28/2018 Attestation Statement - Attestation Attestation: I, Jhonny Barrett, examined this patient and my medical decision-making was reviewed with the SUGAR SAMPLER/PA/Advanced Practice Nurse/Resident Physician. I agree with the documented findings, disposition and treatment plan as described except to the extent set forth below. 73-year-old male presents emergency Department with concerns of lightheadedness. Patient states he had a stent placed recently for partial occlusion of the RCA. Patient denies fever, chills, nausea, vomiting, diarrhea. Patient reports feeling lightheaded with minimal exertion. Patient taking Ranexa and Plavix. He is also started on isosorbide nitrate. Initial troponin negative. EKG did not show evidence of acute STEMI. Patient will be admitted to the hospitalist for further care and evaluation. Given aspirin in the emergency department. Unclear of his troponin is elevated secondary to the recent stent placement versus acute ACS.
[2018-10-03 17:17] LABS: Basophils % 0.3 %; Eosinophils % 0.6 %; Hematocrit 28.6 % (37.5-50.1); Hemoglobin 9.5 g/dL (12.9-16.9); Immature Granulocytes % 0.2 % (0-4); Lymphocytes # 0.8 K/mcL (0.6-4.6); Lymphocytes % 12.5 %; Mean Corpuscular HGB Conc 33.2 g/dL (31.6-35.5); Mean Corpuscular Hemoglobin 30.9 pg (28.0-33.3); Mean Corpuscular Volume 93.2 fL (83.0-100.0); Mean Platelet Volume 9.9 fL (9.4-12.4); Monocytes # 0.5 K/mcL (0.0-1.3); Monocytes % 7.7 %; Neutrophils # 5.1 K/mcL (1.6-8.9); Platelet Count 216 K/mcL (140-400); Red Blood Count 3.07 M/mcL (4.19-5.50); Red Cell Distribution Width 12.8 % (11.5-14.5); Segmented Neutrophils % 78.7 %
[2018-10-03 17:39] LABS: BUN/Creatinine Ratio 20 (6-26); Blood Urea Nitrogen 28 mg/dL (8-23); Calcium 9.1 mg/dL (8.6-10.3); Carbon Dioxide 25 mEq/L (23-29); Chloride 103 mEq/L (98-107); Glucose 152 mg/dL (70-105); Osmolality,Calculated 292 (280-300); Potassium 4.8 mEq/L (3.5-5.1); Sodium 137 mEq/L (136-145); Troponin I 0.28 ng/mL (< 0.04); eGFR For Non-African Americans 50 (> 60)
[2018-10-03] MEDS ORDERED: Aspirin 81 MG TAB.CHEW PO ONE (18:08)
[2018-10-03] MEDS ORDERED: *HR* Dextrose 50 % in Water (Syg) 50 ML SYRINGE IVP PRN (21:25)
[2018-10-03] MEDS ORDERED: Ondansetron 4 MG/2 ML VIAL IVP PRN (21:25)
[2018-10-03] MEDS ORDERED: *HR* Heparin 5,000 UNIT/ML VIAL IVP PRN ×2 (21:25)
[2018-10-03] MEDS ORDERED: Naloxone 0.4 MG/ML INJ IVP PRN (21:25)
[2018-10-03] MEDS ORDERED: Dextrose Gel 15 GM/37.5 ML TUBE PO PRN ×2 (21:25)
[2018-10-03] MEDS ORDERED: D5% in Water 1,000 ML IVC PRN (21:25)
[2018-10-03] MEDS ORDERED: Nitroglycerin 0.4 MG TAB.SUBL SL PRN (21:25)
[2018-10-03] MEDS ORDERED: *HR* Morphine 2 MG/ML SYRINGE IVP PRN (21:25)
[2018-10-03] MEDS ORDERED: Acetaminophen 325 MG TABLET PO PRN (21:25)
[2018-10-03] MEDS ORDERED: *HR* Heparin 5,000 UNIT/ML VIAL IVP ONE (21:25)
[2018-10-03] MEDS ORDERED: Heparin 25,000 UNIT/250 ML D5W 25,000 UNIT/250 ML IV.SOLN IVC SCH (21:30)
[2018-10-03 22:42] LABS: Estimated Average Glucose 272 mg/dl; Hemoglobin A1C 11.1 %; INR 1.6; Prothrombin Time 18.1 Seconds (9.4-12.1)
[2018-10-03 22:44] LABS: Activated Partial Thrombo Time 45.5 Seconds (26.0-36.0)
[2018-10-03] MEDS: Heparin 25,000 UNIT/250 ML D5W 25,000 UNIT/250 ML IV.SOLN IVC SCH (23:42)
[2018-10-03] MEDS: 0.9 % Sodium Chloride 1,000 ML IVC SCH (23:42)
--- NOTE | 2018-10-04 04:39 | Internal Med History&Physical ---
Date of Encounter: 10/03/18 Time of Encounter: 20:15 Internal Medicine - H&P: HPI Chief complaint: chest pain; dizziness Admitted From: Emergency Dept Plans for Post Hospital Care: Home History of present illness: Mr. Collins is a 73 year old male who presents to the ER with 1 1/2 days history of chest pain, pressure, pain radiating to both arms, and dizziness. Patient had PCI and stent performed just 3 days ago. He was discharged following day and was feeling well. However, within 24 hours, he started developing some chest tightness, heaviness, radiating arm pain, and dizziness. He felt that symptoms were due to his new medications from his recovery agent. He noted the dizziness especially after taken Ranexa. However, the chest tightness and anginal symptoms persisted. He therefore came to the ER tonight where he was noted to have troponin elevation. He was therefore admitted to hospitalist service for further workup and care. Currently, patient still has some mild chest tightness and heaviness which is identical to his angina and prior [place]. He denies any dizziness at the present time. His blood pressure has been a little elevated. He and his state he has no other focal neurologic deficits. He denies any headache. He notes his dizziness occurs only when he takes his Ranexa. He states he has been taking his anti-platelet therapy religiously as prescribed. He denies any nausea, vomiting, diarrhea, fevers, cough, chills, or night sweats. Past Med Surg Social Fam HX - Past Medical History Attestation: Yes The following information was validated with the patient. Source: patient, old records reviewed Medical history: coronary artery disease, dementia, diabetes Additional medical history: Agent [place] exposure Psychiatric history: PTSD - Past Surgical History Surgical History: angioplasty/stent, orthopedic, other, tonsilectomy - Social History Smoking Status: Never smoker Smokeless Tobacco Status: No Alcohol use: occasionally Drug use: none Current living situation: Home, With Family Activity Level: Independent ambulation Recent Out of Country Travel Within the Last 8 Weeks: No - Family History Mother Living Status: Hx Family Cancer: Yes (Lung CA) Hx Family Endocrine Disorder: Yes (Diabetes) Father Living Status: Hx Family Respiratory Disorders: Yes (Chronic PNA) Internal Medicine - H&P: Meds Atomoxetine HCl [Strattera] 80 mg PO DAILY 11/04/17 [History] Atorvastatin [Lipitor] 40 mg PO HS 11/04/17 [History] Ezetimibe [Zetia] 10 mg PO DAILY 11/04/17 [History] Insulin Regular Human [Humulin R] 4 - 14 unit SQ TID PRN 11/04/17 [History] Metformin HCl [Glucophage] 1,000 mg PO BID 11/04/17 [History] Venlafaxine HCl [Venlafaxine HCl ER] 225 mg PO DAILY 11/04/17 [History] Apixaban [Eliquis] 5 mg PO BID #60 tablet 11/06/17 [Rx] Aspirin [Adult Aspirin] 81 mg PO DAILY 09/18/18 [History] Isosorbide MONOnitrate (24 HR) [Imdur] 30 mg PO DAILY 09/18/18 [History] Memantine [Namenda] 10 mg PO BID 09/18/18 [History] Ranitidine HCl [Acid Medical Claims Examiner] 150 mg PO BID 09/18/18 [History] Metoprolol Succinate [Toprol Xl] 50 mg PO DAILY 09/28/18 [History] Melatonin 10 mg PO HS 09/30/18 [History] Nitroglycerin [Nitrostat] 0.4 mg SL Q5MIN PRN MDD 3DOSES 09/30/18 [History] Clopidogrel [Plavix] 75 mg PO DAILY #30 tablet 10/01/18 [Rx] Ranolazine [Ranexa] 1,000 mg PO BID #120 tab.er.12h 10/01/18 [Rx] Allergy/AdvReac Type Severity Reaction Status Date / Time No Known Allergies Allergy Verified 10/03/18 14:42 - Constitutional Constitutional: no chills, no fever(s), no night sweats - EENT Eyes: no blurry vision, no change in vision Ears: tinnitus (chronic), no ear pain Nose, mouth and throat: sore throat, no nasal congestion, no sinus pressure - Cardiovascular Cardiovascular ROS IM: chest pain, dyspnea on exertion, irregular heart rhythm, lightheadedness, palpitations, no diaphoresis, no dyspnea, no orthopnea, no paroxysmal nocturnal dyspnea, no syncope - Respiratory Respiratory: no cough, no chest congestion, no excessive phlegm production, no pain with cough - Gastrointestinal Gastrointestinal: no abdominal pain, no diarrhea, no hematemesis, no hematochezia, no melena, no nausea, no vomiting - Genitourinary Genitourinary ROS male: no dysuria, no flank pain, no hematuria - Musculoskeletal Musculoskeletal ROS IM: no arthralgias, no back pain - Integumentary Integumentary IM: no rash, no jaundice - Neurological Neurological ROS: dizziness, no confusion, no focal weakness, no frequent falls, no headache(s), no numbness, no paresthesias - Psychiatric Psychiatric: no anxiety, no depression - Endocrine Endocrine IM: no cold intolerance, no heat intolerance, no polydipsia, no polyuria - Allergic/Immunologic Allergic/Immunologic: no wheezing, no GI upset with certain foods - Constitutional Vitals: Temp Pulse Resp BP Pulse Ox 97.7 F 63 18 150/75 100 10/04/18 04:06 10/04/18 04:06 10/04/18 04:06 10/04/18 04:06 10/04/18 04:06 General appearance: Present: cooperative, A&O X 3, pleasant, no acute distress, answers questions appropriately Exam: see below - Head Head exam: Present: atraumatic, normal inspection - Eye Eye exam: Present: EOMI, PERRL. Absent: scleral icterus Pupils: Present: normal accommodation - ENT ENT exam: Present: mucous membranes dry, normal exam, normal oropharynx - Neck Neck exam general surgery: Present: full ROM, supple, trachea midline. Absent: tenderness, nuchal rigidity, thyromegaly - Respiratory Respiratory exam: Present: CTAB. Absent: chest wall tenderness, rales, rhonchi, wheezes - Cardiovascular Cardiovascular exam: Present: distant heart sounds, +S1, +S2. Absent: diastolic murmur, JVD, systolic murmur - GI/Abdominal GI/Abdominal exam: Present: normal bowel sounds, soft. Absent: hepatomegaly, splenomegaly, tenderness - Extremities Exam Extremities exam: Present: full ROM, warm, radial pulses palpable and symmetrical. Absent: calf tenderness, joint swelling, pedal edema, tenderness - Back Exam Back exam: Present: normal inspection. Absent: CVA tenderness (L), CVA tenderness (R) - Neurological Exam Neurological exam: Present: alert, CN II-XII intact, oriented X3, no focal deficits, strengths equal and symetr throughout - Psychiatric Psychiatric exam: Present: normal affect, normal mood - Skin Skin exam: Present: dry, intact, warm Internal Med - H&P Results - Labs CBC & Chem 7: 10/03/18 16:54 10/03/18 16:54 Labs: Short CBC 10/03/18 Range/Units 16:54 WBC 6.5 (4.3-11.1) K/mcL Hgb 9.5 L (12.9-16.9) g/dL Hct 28.6 L (37.5-50.1) % Plt Count 216 (140-400) K/mcL Neutrophils # 5.1 (1.6-8.9) K/mcL BMP 10/03/18 16:54 Sodium 137 Potassium 4.8 Chloride 103 Carbon Dioxide 25 BUN 28 H Creatinine 1.40 H Glucose 152 H Calcium 9.1 Cardiac Enzymes 10/03/18 10/03/18 Range/Units 16:54 22:11 Troponin I 0.28 H* 0.32 H* (< 0.04) ng/mL - EKG Data -: EKG Interpreted by Myself - EKG Data Prior EKG available for review: no EKG comments: 10/04/18 04:57 NSR; non-specific ST-T changes - Impressions ITS Impressions Chest X-Ray 10/03/18 14:49 IMPRESSION: No significant findings in the chest. D/ / David Beasley MD / David Beasley MD Interpreting Provider: David Beasley MD Head CT 10/03/18 18:08 IMPRESSION: No acute intracranial abnormality. D/ / Logan Wolfe MD / Logan Wolfe MD Interpreting Provider: Logan Wolfe MD - Diagnostic Studies Chest x-ray Status: image reviewed by me (negative) - Assessment and Plan (1) ACS (acute coronary syndrome) Current Visit: Yes Status: Acute Assessment and plan: 1. Discussed with Dr. Basurto. 2. Will start Heparin per ACS protocol, hold Eliquis, continue DAPT, monitor on telemetry, and trend troponins with EKG's. 3. Consult cardiology. 4. Morphine and SL NTG ordered PRN for CP. (2) Diabetes mellitus Current Visit: Yes Status: Chronic Assessment and plan: 1. Will hold home oral meds. 2. Will order SSI. 3. Monitor glucose and adjust dosing as necessary. Qualifiers: Diabetes mellitus type: type 2 Diabetes mellitus senior care insulin use: with senior care use Diabetes mellitus complication status: with unspecified complications Qualified Code(s): E11.8 - Type 2 diabetes mellitus with unspecified complications; Z79.4 - residential (current) use of insulin (3) CAD (coronary artery disease) Current Visit: Yes Status: Chronic Assessment and plan: 1. Work-up as above. 2. Continue home meds as appropriate. Qualifiers: Coronary Disease-Associated Artery/Lesion type: [place] artery [place] vs. transplanted heart: [place] heart Associated angina: with unstable angina Qualified Code(s): I25.110 - Atherosclerotic heart disease of [place] coronary artery with unstable angina pectoris (4) DVT prophylaxis Current Visit: Yes Status: Acute Assessment and plan: 1. Heparin gtt as above.
[2018-10-04 05:38] LABS: Basophils % 0.3 %; Eosinophils # 0.1 K/mcL (0.0-0.6); Hematocrit 30.4 % (37.5-50.1); Hemoglobin 10.1 g/dL (12.9-16.9); Immature Granulocytes % 0.2 % (0-4); Lymphocytes # 1.1 K/mcL (0.6-4.6); Lymphocytes % 18.2 %; Mean Corpuscular HGB Conc 33.2 g/dL (31.6-35.5); Mean Corpuscular Hemoglobin 31.1 pg (28.0-33.3); Mean Corpuscular Volume 93.5 fL (83.0-100.0); Monocytes # 0.5 K/mcL (0.0-1.3); Neutrophils # 4.2 K/mcL (1.6-8.9); Platelet Count 215 K/mcL (140-400); Red Blood Count 3.25 M/mcL (4.19-5.50); Red Cell Distribution Width 13.1 % (11.5-14.5); Segmented Neutrophils % 71.3 %
[2018-10-04] MEDS: Insulin LISPRO 300 UNITS/3 ML VIAL SQ SCH ×3 (08:18→16:30)
[2018-10-04] MEDS ORDERED: Ranolazine 500 MG TAB.ER.12H PO SCH (09:00)
[2018-10-04] MEDS: Isosorbide MONOnitrate (24 HR) 30 MG TAB.ER.24H PO SCH (09:05)
[2018-10-04] MEDS: Metoprolol XL (24 HR) Succ 50 MG TAB.ER.24H PO SCH (09:05)
[2018-10-04] MEDS: Aspirin Enteric Coated 81 MG Tablet PO SCH (09:05)
[2018-10-04 10:23] LABS: Alanine Aminotransferase 35 Units/L (7-52); Albumin/Globulin Ratio 2.1 (1.1-2.2); Alkaline Phosphatase 74 Units/L (34-104); Aspartate Amino Transferase 35 Units/L (13-39); BUN/Creatinine Ratio 20 (6-26); Bilirubin,Total 0.4 mg/dL (0.3-1.0); Blood Urea Nitrogen 25 mg/dL (8-23); Calcium 9.1 mg/dL (8.6-10.3); Carbon Dioxide 25 mEq/L (23-29); Chloride 103 mEq/L (98-107); Chol/HDL Ratio 1.8 (0-4.9); Cholesterol 85 mg/dL (< 200); Globulin 1.9 g/dL (2.4-3.5); Glucose 151 mg/dL (70-105); HDL Cholesterol 46 mg/dL (40-59); LDL Cholesterol,Calculated 28 mg/dL (0-99); Magnesium 1.8 mg/dL (1.6-2.6); Osmolality,Calculated 297 (280-300); Potassium 4.5 mEq/L (3.5-5.1); Sodium 140 mEq/L (136-145); Total Protein 5.9 g/dL (6.4-8.9); Triglycerides 55 mg/dL (< 150); eGFR For Non-African Americans 56 (> 60)
--- NOTE | 2018-10-04 11:29 | Cardiology Consult Note ---
<Naresh Warner - Last Filed: 10/04/18 11:45> Date of Encounter: 10/04/18 Time of Encounter: 11:23 Assessment and Plan (1) Chest pain Current Visit: No Status: Acute Patient states chest pain improved after LHC with PCI 09/30/18. He did experience mild midstarnal chest pain yesterday at rest. His main concern is dizziness. Troponin elevation expected after PCI. Unclear significance. EKG shows SR with 1st degree block and LAFB. No change from prior. Recent LHC for unstable angina. LHC 09/18/18 with no intervention. Medical management recommended and ranexa added. LHC showed a 60% stenosis in the Proximal LAD, 60% stenosis in the Mid LAD, 25% stenosis in the Distal LAD. FFR to the LAD was 0.82. 20% stenosis in the Proximal Circumflex, 65% stenosis in the Mid Circumflex. There was a 85% stenosis in the Ramus and 100% stenosis in the Proximal RCA. There was collateral vessels seen from left to right. EF 55%. LHC 09/30/18: S/p PTCA/CONSTANTINE to Ramus 85% lesion. Chest pain-free. Right groin site dry and intact, mild ecchymosis, no hematoma. On aspirin, statin, Plavix, beta patsy, Ranexa, long-acting nitrate. Cardiology signing off, post-procedure education provided. All questions answered. Patient verbalized understanding and agreed with plan. Last TTE 10/2017- LVEF 60-65%. Mild TR. No PH. Plan: discussed with Dr. Basurto, we will repeat TTE. We will consider further testing based on results. I will decrease ranexa back to 500 mg BID. Continue heparin gtt for now. Qualifiers: Chest pain type: chest pain due to myocardial ischemia Ischemic chest pain type: unstable angina pectoris Qualified Code(s): I20.0 - Unstable angina (2) Dizziness Current Visit: No Status: Acute Continued dizziness. Describes vertigo. Dizziness increased after recent increase in Ranexa. I will decrease dose. Telemetry review shows NSR. No afib. No pauses. No bradycardia seen. Occasional PVC. Noted prior normal tilt test in 2017. Repeat TTE pending. (3) CAD (coronary artery disease) Current Visit: Yes Status: Chronic S/p PCI to the ramus. Continue DAPT with asa and plavix. Continue statin and bb. Continue imdur and ranexa. Ranexa decreased due to side effects. Qualifiers: Coronary Disease-Associated Artery/Lesion type: [place] artery [place] vs. transplanted heart: [place] heart Associated angina: with unstable angina Qualified Code(s): I25.110 - Atherosclerotic heart disease of [place] coronary artery with unstable angina pectoris (4) Elevated troponin Current Visit: Yes Status: Acute See pllan above. Troponin trending down. Likely from recent PCI. (5) PAF (paroxysmal atrial fibrillation) Current Visit: No Status: Acute H/o PAF. Telemetry review over last 24 hours with no afib seen. No afib last hospital stay. Denies elevated HR at home. Following with Dr. Jhonny Cazares out- pt. On eliquis for usp AC. Currently on heparin GTT per ACS protocal. He is on triple therapy with recent PCI. Plan on holding asa in one month. Discussion w patient/family: The assessment and plan as outlined above was discussed with the patient and/or family members who expressed understanding and agreement. All questions were answered. Thank you for involving us in the care of your patient. Please call with any questions. History of Present Illness Consult date: 10/04/18 Requesting physician: Kaushal Victor Consult reason: Chest pain, elevated troponin Chief complaint: Dizziness, chest pain History of present illness: Mr. Collins is a 73 year old male with past medical history of CAD s/p PCI 09/30/18 to the [facility], atrial fibrillation, HTN, HLD, DM type II, and CKD. Presents with the c/o ongoing dizziness with movement that has increased. He also admits to mild midsternal chest pain yesterday at rest. He has some tingling in his hands. States chest pain has improved since recent [facility]. He is inquiring if his ranexa was causing his dizziness. He has a long history of dizziness with extensive work-up in the past. Dizziness did not improve after his recent PCI and was increased yesterday. He says he feels as he is on a ship and the ship is moving. He denies elevated HR at home or palpitations. States that his afib symptoms seemed to improve after his stent. His work-up include troponin level that was found to be elevated. EKG showed SR with no acute ST changes. Past Med Surg Social Fam HX - Past Medical History Medical history: coronary artery disease, dementia, diabetes Additional medical history: Agent [place] exposure Psychiatric history: PTSD - Past Surgical History Surgical History: angioplasty/stent, orthopedic, other, tonsilectomy - Social History Smoking Status: Never smoker Smokeless Tobacco Status: No Alcohol use: occasionally Drug use: none - Family History Mother Living Status: Hx Family Cancer: Yes (Lung CA) Hx Family Endocrine Disorder: Yes (Diabetes) Father Living Status: Hx Family Respiratory Disorders: Yes (Chronic PNA) Medications and Allergies Atomoxetine HCl [Strattera] 80 mg PO DAILY 11/04/17 [History] Atorvastatin [Lipitor] 40 mg PO HS 11/04/17 [History] Ezetimibe [Zetia] 10 mg PO DAILY 11/04/17 [History] Insulin Regular Human [Humulin R] 4 - 14 unit SQ TID PRN 11/04/17 [History] Metformin HCl [Glucophage] 1,000 mg PO BID 11/04/17 [History] Venlafaxine HCl [Venlafaxine HCl ER] 225 mg PO DAILY 11/04/17 [History] Apixaban [Eliquis] 5 mg PO BID #60 tablet 11/06/17 [Rx] Aspirin [Adult Aspirin] 81 mg PO DAILY 09/18/18 [History] Isosorbide MONOnitrate (24 HR) [Imdur] 30 mg PO DAILY 09/18/18 [History] Memantine [Namenda] 10 mg PO BID 09/18/18 [History] Ranitidine HCl [Acid Campus Aide] 150 mg PO BID 09/18/18 [History] Metoprolol Succinate [Toprol Xl] 50 mg PO DAILY 09/28/18 [History] Melatonin 10 mg PO HS 09/30/18 [History] Nitroglycerin [Nitrostat] 0.4 mg SL Q5MIN PRN MDD 3DOSES 09/30/18 [History] Clopidogrel [Plavix] 75 mg PO DAILY #30 tablet 10/01/18 [Rx] Ranolazine [Ranexa] 1,000 mg PO BID #120 tab.er.12h 10/01/18 [Rx] Allergy/AdvReac Type Severity Reaction Status Date / Time No Known Allergies Allergy Verified 10/03/18 14:42 All Systems Review: The remainder of the systems were reviewed and are negative Physical Examination Vital Signs, Last 4 Hours Temp Pulse Resp BP Pulse Ox 10/04/18 10:20 97.6 F 69 18 113/63 96 General: Conversant, No Apparent Distress HEENT: Atraumatic, Normocephaly, Mucus Membranes Moist Neck: No JVD, Normal carotid pulses Cardiac: Reg Rate and Rhythm, Normal S1 and S2, No Murmur Lungs: Normal Breath Sounds, No Wheeze, Rales, Rhonchi Neuro: Alert and responsive, No focal deficits noted Abdomen: Soft, Non-Tender Skin: No rashes noted on visualized skin Musculoskeletal: No Chest Wall Tenderness Extremities: No Clubbing, No Cyanosis, No Edema, Normal Pulses Results 10/04/18 05:00 10/04/18 05:00 Lab Results 10/03/18 10/03/18 10/03/18 16:54 16:54 22:11 WBC 6.5 Hgb 9.5 L Hct 28.6 L Plt Count 216 INR 1.6 APTT 45.5 H Sodium 137 Potassium 4.8 Chloride 103 Carbon Dioxide 25 BUN 28 H Creatinine 1.40 H Glucose 152 H Calcium 9.1 Magnesium Total Bilirubin AST ALT Alkaline Phosphatase Troponin I 0.28 H* 10/03/18 10/04/18 10/04/18 22:11 05:00 05:00 WBC 5.9 Hgb 10.1 L Hct 30.4 L Plt Count 215 INR APTT Sodium 140 Potassium 4.5 Chloride 103 Carbon Dioxide 25 BUN 25 H Creatinine 1.26 Glucose 151 H Calcium 9.1 Magnesium 1.8 Total Bilirubin 0.4 AST 35 ALT 35 Alkaline Phosphatase 74 Troponin I 0.32 H* 10/04/18 10/04/18 05:00 08:58 WBC Hgb Hct Plt Count INR APTT 79.8 H D Sodium Potassium Chloride Carbon Dioxide BUN Creatinine Glucose Calcium Magnesium Total Bilirubin AST ALT Alkaline Phosphatase Troponin I 0.29 H* - Imaging and Cardiology Cardiac cath: report reviewed - EKG Interpretation EKG results cardiology: personally reviewed Consult Discharge Plan - Plan Referrals: Brent Vu DO [Primary Care Provider] - <SherineSunday A - Last Filed: 10/04/18 15:55> Date of Encounter: 10/04/18 - Attending Attestation I have personally performed a face to face evaluation on this patient. I have reviewed and agree with the documented findings and care plan as documented by the PAYROLL PROCESSOR. History and Exam by me shows: Patient with recent coronary angiogram with CONSTANTINE to the ramus, residual disease in the LAD and left circumflex 60% and 65% respectively. Patient is currently chest pain-free. Optimize medical management for now. Obtain echocardiogram. Consider stress test as outpatient if symptoms recur Thanks, Reggie Basurto MD [facility] Assessment and Plan Discussion w patient/family: The assessment and plan as outlined above was discussed with the patient and/or family members who expressed understanding and agreement. All questions were ans wered. Thank you for involving us in the care of your patient. Please call with any questions. History of Present Illness History of present illness: Mr. Collins is a 73 year old male All Systems Review: The remainder of the systems were reviewed and are negative Physical Examination Vital Signs, Last 4 Hours Temp Pulse Resp BP Pulse Ox 10/04/18 14:28 98.2 F 74 16 111/72 100 Results 10/04/18 05:00 10/04/18 05:00 Lab Results 10/03/18 10/03/18 10/03/18 16:54 16:54 22:11 WBC 6.5 Hgb 9.5 L Hct 28.6 L Plt Count 216 INR 1.6 APTT 45.5 H Sodium 137 Potassium 4.8 Chloride 103 Carbon Dioxide 25 BUN 28 H Creatinine 1.40 H Glucose 152 H Calcium 9.1 Magnesium Total Bilirubin AST ALT Alkaline Phosphatase Troponin I 0.28 H* 10/03/18 10/04/18 10/04/18 22:11 05:00 05:00 WBC 5.9 Hgb 10.1 L Hct 30.4 L Plt Count 215 INR APTT Sodium 140 Potassium 4.5 Chloride 103 Carbon Dioxide 25 BUN 25 H Creatinine 1.26 Glucose 151 H Calcium 9.1 Magnesium 1.8 Total Bilirubin 0.4 AST 35 ALT 35 Alkaline Phosphatase 74 Troponin I 0.32 H* 10/04/18 10/04/18 05:00 08:58 WBC Hgb Hct Plt Count INR APTT 79.8 H D Sodium Potassium Chloride Carbon Dioxide BUN Creatinine Glucose Calcium Magnesium Total Bilirubin AST ALT Alkaline Phosphatase Troponin I 0.29 H*
[2018-10-04] MEDS ORDERED: Melatonin 3 MG TABLET PO PRN (12:27)
[2018-10-04] MEDS: 0.9 % Sodium Chloride 1,000 ML IVC SCH (14:06)
--- NOTE | 2018-10-04 15:10 | Event Note ---
Date of Encounter: 10/04/18 Time of Encounter: 15:04 Pt seen after midnight. Per nurse he had been up to the rest room without assistance and did well. Vitals currently stable. Cardiology to see. Will review pt's home meds.
[2018-10-04 17:14] LABS: Activated Partial Thrombo Time 134.5 Seconds (26.0-36.0)
[2018-10-04 17:26] LABS: Heparin anti-factor XA UFH > 2.00 IU/mL (0.30-0.70)
[2018-10-04] MEDS: Famotidine 20 MG TABLET PO SCH (20:15)
[2018-10-04] MEDS: Ranolazine 500 MG TAB.ER.12H PO SCH (20:15)
[2018-10-05] MEDS: Heparin 25,000 UNIT/250 ML D5W 25,000 UNIT/250 ML IV.SOLN IVC SCH (03:29)
[2018-10-05] MEDS: Metoprolol XL (24 HR) Succ 50 MG TAB.ER.24H PO SCH (08:29)
[2018-10-05] MEDS: Famotidine 20 MG TABLET PO SCH (08:29)
[2018-10-05] MEDS: Ranolazine 500 MG TAB.ER.12H PO SCH (08:29)
[2018-10-05] MEDS: Isosorbide MONOnitrate (24 HR) 30 MG TAB.ER.24H PO SCH (08:29)
[2018-10-05] MEDS: Aspirin Enteric Coated 81 MG Tablet PO SCH (08:29)
[2018-10-05] MEDS: Insulin LISPRO 300 UNITS/3 ML VIAL SQ SCH ×2 (08:32→11:13)
--- NOTE | 2018-10-05 10:33 | Cardiology Progress Note ---
Date of Encounter: 10/05/18 Time of Encounter: 10:24 Assessment and Plan (1) Chest pain Current Visit: No Status: Acute Patient states chest pain improved after LHC with PCI 09/30/18. He did experience mild midsternal chest pain yesterday at rest. His main concern this admission is dizziness. Note long history of dizziness. Mild troponin elevation expected after PCI. EKG shows SR with 1st degree block and LAFB. No change from prior. Recent LHC for unstable angina. C 09/18/18 with no intervention. Medical management recommended and ranexa added. LHC showed a 60% stenosis in the Proximal LAD, 60% stenosis in the Mid LAD, 25% stenosis in the Distal LAD. FFR to the LAD was 0.82. 20% stenosis in the Proximal Circumflex, 65% stenosis in the Mid Circumflex. There was a 85% stenosis in the Ramus and 100% stenosis in the Proximal RCA. There was collateral vessels seen from left to right. EF 55%. C 09/30/18: S/p PTCA/CONSTANTINE to Ramus 85% lesion. Chest pain-free. Right groin site dry and intact, mild ecchymosis, no hematoma. On aspirin, statin, Plavix, beta patsy, Ranexa, long-acting nitrate. Last TTE 10/2017- LVEF 60-65%. Mild TR. No PH. Plan: Ranexa decreased for dizziness that increased after starting 100 mg dose. Telemetry reviewed. No atrial fibrillation seen during stay. Sinus bradycardia to sinus rhythm seen. No pauses. Repeat TTE for further evaluation pending. If no significant change in EF can convert heparin drip back to our request. No further testing from cardiac standpoint. He will ambulate in the hallway to reevaluate symptoms prior to discharge. Qualifiers: Chest pain type: chest pain due to myocardial ischemia Ischemic chest pain type: unstable angina pectoris Qualified Code(s): I20.0 - Unstable angina (2) Dizziness Current Visit: No Status: Acute Continued dizziness. Describes vertigo. Dizziness increased after recent increase in Ranexa. Dose decreased. Telemetry review shows NSR. No afib. No pauses. HR as low as 43 bpm seen at 6 AM. Heart rate noted to be in the 40s during nocturnal hours it increased to the 60s when awake. Occasional PVC. Noted prior normal tilt test in 2017. Repeat TTE pending. We will consider repeat Holter monitor at discharge. There was previous concern that his atrial fibrillation was causing his symptoms. There was no atrial fibrillation seen this admission or last. He monitors his heart rhythm at home with a device he purchased and states that occasionally it will be up to 115 to 120 bpm. I discussed the option of staying until Sunday versus outpatient follow-up with EP to discuss anti-arrhythmic therapy. He agree with outpatient follow-up. (3) CAD (coronary artery disease) Current Visit: Yes Status: Chronic S/p PCI to the ramus. Continue DAPT with asa and plavix. Continue statin and bb. Continue imdur and ranexa. Ranexa decreased due to side effects. Qualifiers: Coronary Disease-Associated Artery/Lesion type: [place] artery [place] vs. transplanted heart: [place] heart Associated angina: with unstable angina Qualified Code(s): I25.110 - Atherosclerotic heart disease of [place] coronary artery with unstable angina pectoris (4) Elevated troponin Current Visit: Yes Status: Acute See plan above. Troponin trending down. Likely from recent PCI. TTE pending. (5) PAF (paroxysmal atrial fibrillation) Current Visit: No Status: Acute H/o PAF. Telemetry review over last 24 hours with no afib seen. No afib last hospital stay. Following with Dr. Jhonny Cazares out-pt. On eliquis for longterm AC. Currently on heparin GTT per ACS protocal. He is on triple therapy with recent PCI. Plan on holding asa in one month. Discussion w patient/family: The assessment and plan as outlined above was discussed with the patient and/or family members who expressed understanding and agreement. All questions were answered. Thank you for involving us in the care of your patient. Please call with any questions. Subjective Principal diagnosis: dizziness Interval history: Mr. Henry is resting quietly in bed. He denies recurrent symptoms. Denies chest pain. Denies dizziness. Objective Vital Signs, Last 4 Hours Temp Pulse Resp BP Pulse Ox 10/05/18 07:29 97.4 F L 60 18 122/60 97 General: Conversant, No Apparent Distress HEENT: Atraumatic, Normocephaly, Mucus Membranes Moist Neck: No JVD, Normal carotid pulses Cardiac: Reg Rate and Rhythm, Normal S1 and S2, No Murmur Lungs: Normal Breath Sounds, No Wheeze, Rales, Rhonchi Neuro: Alert and responsive, No focal deficits noted Abdomen: Soft, Non-Tender Skin: No rashes noted on visualized skin Musculoskeletal: No Chest Wall Tenderness Extremities: No Clubbing, No Cyanosis, No Edema, Normal Pulses Results 10/04/18 05:00 10/04/18 05:00 Lab Results 10/04/18 10/05/18 10/05/18 15:32 01:14 07:23 APTT 134.5 H* D 83.9 H 93.6 H - Imaging and Cardiology Echo: pending - EKG Interpretation EKG results cardiology: personally reviewed Consult Discharge Plan - Plan Referrals: Brent Vu DO [Primary Care Provider] -
[2018-10-05 11:05] VITALS: BP 167/85
--- NOTE | 2018-10-05 14:36 | Event Note ---
Date of Encounter: 10/05/18 Time of Encounter: 14:35 - Cardiology Event Note Echocardiogram with no change in LVEF. No significant valvular disease. If no recurrent symptoms with ambulation okay for d/c from cardiology standpoint.
--- NOTE | 2018-10-05 14:41 | Discharge Summary ---
- NOTES TO OUTPATIENT PROVIDER Notes to Outpatient Provider: PCP in 5 to 7 days. Cardiology out pt Orders not resulted at time of discharge: Pending orders 10/04/18 06:00 ECG 12 lead ECG [ECG] AM 0600 Date of Encounter: 10/05/18 Time of Encounter: 14:39 - Discharge Diagnosis (1) Chest pain Priority: Primary Status: Acute Assessment and Plan: 1. Admitting discussed with Dr. Basurto. 2. Was started on Heparin per ACS protocol, and held Eliquis, continued DAPT, Was monitored on telemetry, and trended troponins with EKG's. 3. Consulted cardiology. 4. Morphine and SL NTG ordered PRN for CP. 5. Seen by cardiology, echo ordered and reviewd. ACS ruled out. Pt's meds reviewed. Ranexa decreased to 500 mg BID. 6. Pt states he has not had any more episodes of dizziness since his admission. 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 Qualifiers: Chest pain type: chest pain due to myocardial ischemia Ischemic chest pain type: unstable angina pectoris Qualified Code(s): I20.0 - Unstable angina (2) CAD (coronary artery disease) Priority: Secondary Status: Chronic Assessment and Plan: 1. Work-up as above. 2. Continue home meds as appropriate. Qualifiers: Coronary Disease-Associated Artery/Lesion type: [place] artery [place] vs. transplanted heart: [place] heart Associated angina: with unstable angina Qualified Code(s): I25.110 - Atherosclerotic heart disease of [place] coronary artery with unstable angina pectoris (3) Diabetes mellitus Priority: Secondary Status: Resolved Assessment and Plan: 1. Resume home oral meds. 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 Hospital course: Mr. Collins is a 73 year old male - Time Spent with Patient Total time spent providing and/or coordinating discharge services: - Discharge Medications Prescriptions: No Action Atorvastatin [Lipitor] 40 mg PO HS Venlafaxine HCl [Venlafaxine HCl ER] 225 mg PO DAILY Metformin HCl [Glucophage] 1,000 mg PO BID Insulin Regular Human [Humulin R] 4 - 14 unit SQ TID PRN PRN Reason: SLIDING SCALE Ezetimibe [Zetia] 10 mg PO DAILY Atomoxetine HCl [Strattera] 80 mg PO DAILY Apixaban [Eliquis] 5 mg PO BID #60 tablet Aspirin [Adult Aspirin] 81 mg PO DAILY Isosorbide MONOnitrate (24 HR) [Imdur] 30 mg PO DAILY Ranitidine HCl [Acid Smoke Control Supervisor] 150 mg PO BID Memantine [Namenda] 10 mg PO BID Metoprolol Succinate [Toprol Xl] 50 mg PO DAILY Melatonin 10 mg PO HS Nitroglycerin [Nitrostat] 0.4 mg SL Q5MIN PRN MDD 3DOSES PRN Reason: Chest Pain Ranolazine [Ranexa] 1,000 mg PO BID #120 tab.er.12h Clopidogrel [Plavix] 75 mg PO DAILY #30 tablet Home Medications: Atomoxetine HCl [Strattera] 80 mg PO DAILY 11/04/17 [History] Atorvastatin [Lipitor] 40 mg PO HS 11/04/17 [History] Ezetimibe [Zetia] 10 mg PO DAILY 11/04/17 [History] Insulin Regular Human [Humulin R] 4 - 14 unit SQ TID PRN 11/04/17 [History] Metformin HCl [Glucophage] 1,000 mg PO BID 11/04/17 [History] Venlafaxine HCl [Venlafaxine HCl ER] 225 mg PO DAILY 11/04/17 [History] Apixaban [Eliquis] 5 mg PO BID #60 tablet 11/06/17 [Rx] Aspirin [Adult Aspirin] 81 mg PO DAILY 09/18/18 [History] Isosorbide MONOnitrate (24 HR) [Imdur] 30 mg PO DAILY 09/18/18 [History] Memantine [Namenda] 10 mg PO BID 09/18/18 [History] Ranitidine HCl [Acid Smoke Control Supervisor] 150 mg PO BID 09/18/18 [History] Metoprolol Succinate [Toprol Xl] 50 mg PO DAILY 09/28/18 [History] Melatonin 10 mg PO HS 09/30/18 [History] Nitroglycerin [Nitrostat] 0.4 mg SL Q5MIN PRN MDD 3DOSES 09/30/18 [History] Clopidogrel [Plavix] 75 mg PO DAILY #30 tablet 10/01/18 [Rx] Ranolazine [Ranexa] 1,000 mg PO BID #120 tab.er.12h 10/01/18 [Rx] Allergies/Adverse Reactions: Allergy/AdvReac Type Severity Reaction Status Date / Time No Known Allergies Allergy Verified 10/03/18 14:42 Date of admission: 10/03/18 19:57 Primary care physician: Brent Vu DO Consults: 10/03/18 21:28 Consult to Physician [CONS] Routine Consulting Provider: SherineSunday Ирина Reason for Consult: chest pain; + troponin; S/P PCI/Stent Time Notified: 21:29 Call Completed: Yes Discharging clinician: Deloris Gaspar Anticipated date of discharge: 10/05/18 - Constitutional Vitals: Temp Pulse Resp BP Pulse Ox 98.4 F 100 18 167/85 95 10/05/18 11:04 10/05/18 11:04 10/05/18 11:04 10/05/18 11:04 10/05/18 11:04 General appearance: Present: cooperative, A&O X 3, pleasant, no acute distress, answers questions appropriately Exam: General appearance: Present: cooperative, A&O X 3, pleasant, no acute distress, answers questions appropriately Exam: Head exam: Present: atraumatic, normal inspection Eye exam: Present: EOMI, PERRL. Absent: scleral icterus Pupils: Present: normal accommodation ENT exam: Present: mucous membranes dry, normal exam, normal oropharynx Neck exam general surgery: Present: full ROM, supple, trachea midline. Absent: tenderness, nuchal rigidity, thyromegaly Respiratory exam: Present: CTAB. Absent: chest wall tenderness, rales, rhonchi, wheezes Cardiovascular exam: Present: distant heart sounds, +S1, +S2. Absent: diastolic murmur, JVD, systolic murmur GI/Abdominal exam: Present: normal bowel sounds, soft. Absent: hepatomegaly, splenomegaly, tenderness Extremities exam: Present: full ROM, warm, radial pulses palpable and symmetrical. Absent: calf tenderness, joint swelling, pedal edema, tenderness Back exam: Present: normal inspection. Absent: CVA tenderness (L), CVA tenderness (R) Neurological exam: Present: alert, CN II-XII intact, oriented X3, no focal deficits, strengths equal and symetr throughout Psychiatric exam: Present: normal affect, normal mood Skin exam: Present: dry, intact, warm - Patient Status Disposition: Home, Self-Care Condition: Good Overall status at discharge: patient is back to baseline - Discharge Instructions Follow Up With: Brent Vu DO [Primary Care Provider] - - Diet and Activity Activity: increase activity as tolerated Diet: diabetic diet, low fat, low cholesterol, low salt diet
[2018-10-05] MEDS ORDERED: Apixaban 5 MG TABLET PO SCH (17:00)
--- NOTE | 2018-10-06 09:36 | Electrocardiograph Report ---
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
== END 2018-10-05 16:22 | disposition home or self-care (01) ==
LOC: 3ANU 14:25 → EMEROOARM 14:25 → 3ANU 21:13
PROVIDERS: ADMIT Internal Medicine Nephrology; ATTEND Internal Medicine Nephrology

== ENCOUNTER 2018-10-07 13:20 | Inpatient (IN) ==
--- NOTE | 2018-10-07 14:01 | Emergency Department Note ---
Disposition Clinical Impression: Dizziness, Near syncope Disposition: Admitted As Inpatient Condition: Fair Forms: ED Satisfaction Letter Time of Disposition: 16:00 General Adult HPI - General Chief complaint: ED Syncope Stated complaint: dizzy Time Seen by Provider: 10/07/18 13:29 Source: EMS Limitations: no limitations - History of Present Illness HPI Narrative: Patient presents to the emergency department with chief complaint of dizziness and near syncope. Patient states he was recently admitted to the hospital had a stent put in last week, states it been having problems with dizziness. 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 He states he felt a little bit dizzy and felt some heaviness in both of his arms at that time. He says that when away. 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 States he then tried to get up to go get something to drink when he stood up he felt e kee worse, folic he was noted to pass out he had to be caught by his coworkers sat back down. He states right now he has a little bit of a headache no significant headache he denies drinking any unilateral numbness or weakness but states that he felt weak everywhere denies vision loss but had some blurred vision during the episode denies experiencing any chest pain or shortness of breath during this episode denies palpitations. Patient is on eliquis. He denies any black or bloody stool. The patient denies fevers chills cough or sputum production. Patient states he really has not felt right completely since his last stent was put in. He denies fevers chills cough sputum production abdominal pain nausea vomiting diarrhea Pain Scale: 0 - Related Data Home Medications Medication Instructions Recorded Confirmed Atomoxetine HCl [Strattera] 80 mg PO DAILY 11/04/17 10/04/18 Atorvastatin [Lipitor] 40 mg PO HS 11/04/17 10/04/18 Ezetimibe [Zetia] 10 mg PO DAILY 11/04/17 10/04/18 Insulin Regular Human [Humulin R] 4 - 14 unit SQ TID PRN 11/04/17 10/04/18 Metformin HCl [Glucophage] 1,000 mg PO BID 11/04/17 10/04/18 Venlafaxine HCl [Venlafaxine HCl 225 mg PO DAILY 11/04/17 10/04/18 ER] Aspirin [Adult Aspirin] 81 mg PO DAILY 09/18/18 10/04/18 Isosorbide MONOnitrate (24 HR) 30 mg PO DAILY 09/18/18 10/04/18 [Imdur] Memantine [Namenda] 10 mg PO BID 09/18/18 10/04/18 Ranitidine HCl [Acid Intelligent Systems Engineer] 150 mg PO BID 09/18/18 10/04/18 Metoprolol Succinate [Toprol Xl] 50 mg PO DAILY 09/28/18 10/04/18 Melatonin 10 mg PO HS 09/30/18 10/04/18 Nitroglycerin [Nitrostat] 0.4 mg SL Q5MIN PRN MDD 3DOSES 09/30/18 10/04/18 Previous Rx's Medication Instructions Recorded Apixaban [Eliquis] 5 mg PO BID #60 tablet 11/06/17 Clopidogrel [Plavix] 75 mg PO DAILY #30 tablet 10/01/18 Ranolazine [Ranexa] 500 mg PO BID 30 Days #60 10/05/18 tab.er.12h Allergies Allergy/AdvReac Type Severity Reaction Status Date / Time No Known Allergies Allergy Verified 10/03/18 14:42 Past Medical History - Past Medical History Medical history: Reports: atrial fibrillation, coronary artery disease, dementia, diabetes Surgical history: Reports: angioplasty/stent, orthopedic, other, tonsilectomy Psychiatric history: Reports: ADHD, PTSD - Social History Smoking Status: Never smoker Smokeless Tobacco Status: No Alcohol use: Reports: occasionally Drug use: Reports: none Physical Exam - General Limitations: no limitations General appearance: alert Course Vital Signs Temperature 97.5 F L 10/07/18 13:26 Pulse Rate 63 10/07/18 13:26 Respiratory Rate 16 10/07/18 13:26 Blood Pressure 133/74 10/07/18 13:26 O2 Sat by Pulse Oximetry 95 10/07/18 13:26 Temperature 97.5 F L 10/07/18 13:26 Pulse Rate 63 10/07/18 15:26 Respiratory Rate 14 04/08/19 15:26 Blood Pressure 119/73 10/07/18 15:26 O2 Sat by Pulse Oximetry 100 10/07/18 15:26 Oxygen Delivery Oxygen Delivery Room Air Medical Decision Making - MDM Narrative Medical decision making narrative: Physical laboratory studies were all within acceptable limits troponin was 0.08 which was decreased from 0.2. Head CT showed no acute finding. Chest x-ray as interpreted by radiology showed no acute findings. I did review this patient's recent admission 4 days ago, the palpitations resolve his dizziness was related to his Ranexa, however he had some symptoms last night concerning for potential acute cardiac related symptoms with some exertional symptoms of some shortness of breath and diaphoresis while moving hay, today he was at rest with sudden onset of near syncopal-like symptomatology, with some blurred vision and some brief episode of word finding difficulty, cannot rule out vertebrobasilar insufficiency, or carotid disease, he has not had imaging of the vasculature of his neck, he will be admitted to the hospital for further evaluation and management of dizziness - Lab Data Lab results reviewed: Yes I reviewed the patient's lab results. Result diagrams: 10/07/18 14:01 10/07/18 14:01 Lab Results 10/07/18 10/07/18 10/07/18 Range/Units 14:01 14:01 14:01 WBC 8.0 (4.3-11.1) K/mcL RBC 3.29 L (4.19-5.50) M/mcL Hgb 10.3 L (12.9-16.9) g/dL Hct 31.1 L (37.5-50.1) % MCV 94.5 (83.0-100.0) fL MCH 31.3 (28.0-33.3) pg MCHC 33.1 (31.6-35.5) g/dL RDW 12.9 (11.5-14.5) % Plt Count 227 (140-400) K/mcL MPV 9.8 (9.4-12.4) fL Immature Gran % 0.5 (0-4) % Seg Neutrophils % 81.0 % Lymphocytes % 10.4 % Monocytes % 7.0 % Eosinophils % 0.8 % Basophils % 0.3 % Neutrophils # 6.5 (1.6-8.9) K/mcL Lymphocytes # 0.8 (0.6-4.6) K/mcL Monocytes # 0.6 (0.0-1.3) K/mcL Eosinophils # 0.1 (0.0-0.6) K/mcL Basophils # 0.0 (0.0-0.2) K/mcL APTT 42.1 H D (26.0-36.0) Seconds Sodium 136 (136-145) mEq/L Potassium 5.2 H (3.5-5.1) mEq/L Chloride 101 (98-107) mEq/L Carbon Dioxide 21 L (23-29) mEq/L BUN 35 H (8-23) mg/dL Creatinine 1.55 H (0.70-1.30) mg/dL Est GFR ( Amer) 54 L (> 60) Est GFR (Non-Af Amer) 44 L (> 60) BUN/Creatinine Ratio 23 (6-26) Glucose 318 H (70-105) mg/dL Calculated Osmolality 302 H (280-300) Calcium 8.9 (8.6-10.3) mg/dL Magnesium 1.7 (1.6-2.6) mg/dL Troponin I 0.08 H* (< 0.04) ng/mL B-Natriuretic Peptide (Less than 100) pg/mL 10/07/18 Range/Units 14:01 WBC (4.3-11.1) K/mcL RBC (4.19-5.50) M/mcL Hgb (12.9-16.9) g/dL Hct (37.5-50.1) % MCV (83.0-100.0) fL MCH (28.0-33.3) pg MCHC (31.6-35.5) g/dL RDW (11.5-14.5) % Plt Count (140-400) K/mcL MPV (9.4-12.4) fL Immature Gran % (0-4) % Seg Neutrophils % % Lymphocytes % % Monocytes % % Eosinophils % % Basophils % % Neutrophils # (1.6-8.9) K/mcL Lymphocytes # (0.6-4.6) K/mcL Monocytes # (0.0-1.3) K/mcL Eosinophils # (0.0-0.6) K/mcL Basophils # (0.0-0.2) K/mcL APTT (26.0-36.0) Seconds Sodium (136-145) mEq/L Potassium (3.5-5.1) mEq/L Chloride (98-107) mEq/L Carbon Dioxide (23-29) mEq/L BUN (8-23) mg/dL Creatinine (0.70-1.30) mg/dL Est GFR ( Amer) (> 60) Est GFR (Non-Af Amer) (> 60) BUN/Creatinine Ratio (6-26) Glucose (70-105) mg/dL Calculated Osmolality (280-300) Calcium (8.6-10.3) mg/dL Magnesium (1.6-2.6) mg/dL Troponin I (< 0.04) ng/mL B-Natriuretic Peptide 74 (Less than 100) pg/mL - Radiology Data Radiology results reviewed: Yes I reviewed the patient's radiology results.
[2018-10-07 14:22] LABS: Basophils % 0.3 %; Eosinophils # 0.1 K/mcL (0.0-0.6); Eosinophils % 0.8 %; Hematocrit 31.1 % (37.5-50.1); Hemoglobin 10.3 g/dL (12.9-16.9); Immature Granulocytes % 0.5 % (0-4); Lymphocytes # 0.8 K/mcL (0.6-4.6); Lymphocytes % 10.4 %; Mean Corpuscular HGB Conc 33.1 g/dL (31.6-35.5); Mean Corpuscular Hemoglobin 31.3 pg (28.0-33.3); Mean Corpuscular Volume 94.5 fL (83.0-100.0); Mean Platelet Volume 9.8 fL (9.4-12.4); Monocytes # 0.6 K/mcL (0.0-1.3); Neutrophils # 6.5 K/mcL (1.6-8.9); Platelet Count 227 K/mcL (140-400); Red Blood Count 3.29 M/mcL (4.19-5.50); Red Cell Distribution Width 12.9 % (11.5-14.5)
[2018-10-07 15:29] LABS: Calcium 8.9 mg/dL (8.6-10.3); Magnesium 1.7 mg/dL (1.6-2.6); Potassium 5.2 mEq/L (3.5-5.1)
[2018-10-07 15:42] LABS: Troponin I 0.08 ng/mL (< 0.04)
--- NOTE | 2018-10-07 17:09 | Event Note ---
Date of Encounter: 10/07/18 Time of Encounter: 17:00 Patient was seen and examined. I agree with the H&P as written by the resident physician. Patient with multiple symptoms including feeling dizziness on and off for about a year or so with varying severity. Never LOC. Yesterday was moving hay, he experienced an episode of dizziness that lasted about 30 min. This was associated with weakness in both arms. He is not sure if there was numbness or tingling but says they felt heavy. He had word finding difficulty. No chest pain. He walked [place] and felt better but at that time felt weakness in both thighs. 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 He also experienced blurry vision. According to the , when EMS arrived, his systolic was in the 70s. He was given IV fluids in route. He was asymptomatic upon my evaluation. Noted to have a HR in the 50s while I was in the room. EKG with prolonged QTc. Was here a few times over the last few weeks. Had a cardiac stent recently. Was started on Ranexa a month or so ago. Last visit, his Ranexa was decreased to 500 mg BID from 1000 mg BID as they thought it may be causing his symptoms. Has mildly elevated trops in the ER which is expected post PCI. Has mild CHLOE on CKD as well GEN: NAD CVS: RRR. S1, S2, No m/r/g RESP: CTAB ABD: Soft, NT, ND, +BS EXT: No edema. 2+ DP. No rashes NEURO: Nonfocal Admit to hospitalist Can get an MRI brain. Check carotids Possibly due to low BP and being on multiple BP meds. Check orhtostatics Somewhat bradycardic as well. Check TSH No need to repeat echo as it was recently done I doubt Ranexa is causing his symptoms as symptoms have been ongoing for a year and Ranexa was started last month. Need to monitor QTc Resume home meds
--- NOTE | 2018-10-07 17:36 | Internal Med History&Physical ---
Date of Encounter: 10/07/18 Time of Encounter: 17:27 Internal Medicine - H&P: HPI Chief complaint: Dizziness Admitted From: Emergency Dept Plans for Post Hospital Care: Home History of present illness: Mr. Collins is a 73 year old male with past medical history of atrial fibrillation on anticoagulation with eliquis, CAD, dementia, diabetes who presented to [facility] complaining of dizziness. 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 While he was walking to the counter he stated he all of a sudden became dizzy and described it as being on a boat with a swaying sensation. He also had blurry vision and could not see clearly. His coworkers came to his side and helped him walk back to a chair otherwise he stated he would have fallen. He also has had tinnitus and headache across his forehead today. He stated that the dizziness is similar to his previous admission. He has decreased hearing in his right ear at baseline. The patient's reported that when EMS arrives they found his blood pressure to be 76/49, however just a little later on repeat in the ambulance his blood pressure was back to normal. He denied fever, chills, sickness, chest pain, palpitations, shortness of breath, cough, focal weakness, dysarthria, loss of vision, abdominal pain, diarrhea, nausea, vomiting, dysuria. He stated that he has been compliant with his medications such as his antiplatelet and cardiac medications. He denies smoking, alcohol, drug use. He stated that he has been worked up in the past for dizziness including a tilt table test that was nondiagnostic he reported. Of note, he was recently admitted for chest pain and a left heart catheter was performed with PCI with drug eluting stent to the ramus on 09/30/2018. Prior to his left heart catheter admission he was admitted and instead of intervention at that time he was started on Ranexa. After the left heart catheterization a couple days later he returned to the hospital complaining of chest pain and dizziness which was attributed to his Ranexa in the dose was decreased. In the ED, initial vitals were tempter 97.5 HR 63, BP 133/74. CBC unremarkable. Creatinine 1.55, potassium 5.2, troponin 0.08, BNP 74, magnesium 1.7. Chest x- ray was unremarkable. Head CT negative for acute intracranial abnormality. Past Med Surg Social Fam HX - Past Medical History Attestation: Yes The following information was validated with the patient. Source: patient Medical history: atrial fibrillation, coronary artery disease, dementia, diabetes Additional medical history: [employer] [place] exposure Psychiatric history: ADHD, PTSD - Past Surgical History Surgical History: angioplasty/stent, orthopedic, other, tonsilectomy - Social History Smoking Status: Never smoker Smokeless Tobacco Status: No Alcohol use: occasionally Drug use: none - Family History Mother Living Status: Hx Family Cancer: Yes (Lung CA) Hx Family Endocrine Disorder: Yes (Diabetes) Father Living Status: Hx Family Respiratory Disorders: Yes (Chronic PNA) Internal Medicine - H&P: Meds Atomoxetine HCl [Strattera] 80 mg PO DAILY 11/04/17 [History] Atorvastatin [Lipitor] 40 mg PO HS 11/04/17 [History] Ezetimibe [Zetia] 10 mg PO DAILY 11/04/17 [History] Insulin Regular Human [Humulin R] 4 - 14 unit SQ TID PRN 11/04/17 [History] Metformin HCl [Glucophage] 1,000 mg PO BID 11/04/17 [History] Venlafaxine HCl [Venlafaxine HCl ER] 225 mg PO DAILY 11/04/17 [History] Apixaban [Eliquis] 5 mg PO BID #60 tablet 11/06/17 [Rx] Aspirin [Adult Aspirin] 81 mg PO DAILY 09/18/18 [History] Isosorbide MONOnitrate (24 HR) [Imdur] 30 mg PO DAILY 09/18/18 [History] Memantine [Namenda] 10 mg PO BID 09/18/18 [History] Ranitidine HCl [Acid Pet Care Attendant] 150 mg PO BID 09/18/18 [History] Metoprolol Succinate [Toprol Xl] 50 mg PO DAILY 09/28/18 [History] Melatonin 10 mg PO HS 09/30/18 [History] Nitroglycerin [Nitrostat] 0.4 mg SL Q5MIN PRN MDD 3DOSES 09/30/18 [History] Clopidogrel [Plavix] 75 mg PO DAILY #30 tablet 10/01/18 [Rx] Ranolazine [Ranexa] 500 mg PO BID 30 Days #60 tab.er.12h 10/05/18 [Rx] Allergy/AdvReac Type Severity Reaction Status Date / Time No Known Allergies Allergy Verified 10/03/18 14:42 All Systems PM: A 10-system review of systems was performed and is negative for pertinent findings except as documented above in the HPI. - Constitutional Constitutional: no chills, no fever(s), no falls, no weakness - EENT Eyes: blurry vision, no diplopia, no loss of vision, no pain - Cardiovascular Cardiovascular ROS IM: no chest pain, no edema, no irregular heart rhythm, no palpitations, no syncope - Respiratory Respiratory: no cough, no dyspnea, no wheezing - Gastrointestinal Gastrointestinal: no abdominal pain, no diarrhea, no vomiting - Genitourinary Genitourinary ROS male: no dysuria - Musculoskeletal Musculoskeletal ROS IM: no muscle weakness - Integumentary Integumentary IM: no skin ulcer, no sores - Neurological Neurological ROS: disequilibrium, dizziness, no abnormal speech, no confusion, no focal weakness, no frequent falls, no headache(s), no loss of vision, no weakness - Constitutional Vitals: Temp Pulse Resp BP Pulse Ox 97.5 F L 63 14 119/73 100 10/07/18 13:26 10/07/18 15:26 10/07/18 15:26 10/07/18 15:26 10/07/18 15:26 Exam: Gen.: Vitals noted. No acute distress. AAOx3 HEENT: oropharynx clear, Normocephalic, atraumatic Neck: Supple. No adenopathy. Cardiac: RRR, no murmur, +S1/S2 Pulmonary: CTA bilaterally, no wheezes, rales or rhonchi, equal chest expansion Abdomen: soft, nontender, Bowel sounds noted, no guarding MSK: ROM intact, no joint swelling noted Extremities: no BLE edema, nontender calf, no cyanosis or clubbing Neuro: A&Ox3, moves all extremities, no focal deficits Psych: Appropriate mood and behavior Internal Med - H&P Results - Labs CBC & Chem 7: 10/07/18 14:01 10/07/18 14:01 Labs: Short CBC 10/07/18 Range/Units 14:01 WBC 8.0 (4.3-11.1) K/mcL Hgb 10.3 L (12.9-16.9) g/dL Hct 31.1 L (37.5-50.1) % Plt Count 227 (140-400) K/mcL Neutrophils # 6.5 (1.6-8.9) K/mcL BMP 10/07/18 14:01 Sodium 136 Potassium 5.2 H Chloride 101 Carbon Dioxide 21 L BUN 35 H Creatinine 1.55 H Glucose 318 H Calcium 8.9 Cardiac Enzymes 10/07/18 Range/Units 14:01 Troponin I 0.08 H* (< 0.04) ng/mL - Impressions ITS Impressions Chest X-Ray 10/07/18 13:43 IMPRESSION: No acute cardiopulmonary disease D/ / 10/07/2018 14:00:24 Tam Ohara MD / [facility] Interpreting Provider: Tam Ohara MD Head CT 10/07/18 13:44 IMPRESSION: No acute intracranial abnormality. D/ / Amari Alvarado MD / Amari Alvarado MD Interpreting Provider: Amari Alvarado MD - Assessment and Plan (1) Dizziness Current Visit: Yes Status: Acute Assessment and plan: 73-year-old male who presented with dizziness. Describes as the feeling of being on a boat and swaying from side to side. -Etiology is most likely multifactorial in the setting of QTC prolongation, dehydration, bradycardia, secondary to medications such as Ranexa and metoprolol. Stroke ruled out thus far on head CT. ACS ruled out. Not consistent with vertigo and no nystagmus. -Afebrile -CBC, BNP, BMP, troponin, CXR unremarkable -EKG is sinus rhythm HR 65, left axis deviation, no ST or T wave changes i ndicating ischemia. There is QTC prolongation of 512 -head CT negative for acute intracranial process Plan: -carotid ultrasound ordered -MRI brain ordered -TSH ordered -continue telemetry -decreased Toprol to 25 mg daily -repeat EKG in a.m. -ortho statics ordered (2) QT prolongation Current Visit: Yes Status: Acute Assessment and plan: QTC prolongation demonstrated on EKG -etiology is likely secondary to Ranexa -QTC 512 -EKG is sinus rhythm HR 65, left axis deviation, no ST or T wave changes ind icating ischemia. There is QTC prolongation of 512 -Will hold Ranexa and repeat EKG in the a.m. (3) Acute kidney injury Current Visit: No Status: Resolved Assessment and plan: CHLOE on CKD stage III -likely prerenal secondary to dehydration and hypovolemia -creatinine 1.55 (baseline 1.2-1.3) -Continue to renal protective strategy such as avoid nephrotoxic agents and renal dose medications -monitor I&O -monitor serum creatinine (4) Hyperkalemia Current Visit: Yes Status: Acute Assessment and plan: Hyperkalemia -potassium 5.2 -no EKG changes -only slightly elevated above normal will continue to monitor. If increases in a.m. labs will consider intervention (5) Elevated troponin Current Visit: No Status: Acute Assessment and plan: Mildly elevated troponin in the setting of recent left heart catheterization. -Patient denies chest pain Troponin 0.08 trending down with last troponin 0.29 -will continue to monitor (6) CKD (chronic kidney disease) stage 3, GFR 30-59 ml/min Current Visit: Yes Status: Acute Assessment and plan: CKD stage III likely secondary to diabetes. Creatinine baseline 1.2-1.3 -continue plan as above (7) Diabetes Current Visit: Yes Status: Acute Assessment and plan: Diabetes that is insulin-dependent. -Glucose 318 -continue medium dose sliding scale insulin -continue cardiac diet -Accu checks Qualifiers: Diabetes mellitus type: type 2 Diabetes mellitus terminal carman insulin use: unspecified terminal carman insulin use status Chronic kidney disease stage: stage 3 (moderate) Qualified Code(s): E11.22 - Type 2 diabetes mellitus with diabetic chronic kidney disease; N18.3 - Chronic kidney disease, stage 3 (moderate) (8) PAF (paroxysmal atrial fibrillation) Current Visit: No Status: Acute Assessment and plan: History of known atrial fibrillation on anticoagulation with Eliquis in rate controlled with metoprolol EKG is sinus rhythm HR 65, left axis deviation, no ST or T wave changes indicating ischemia. There is QTC prolongation of 512 . -continue eliquis and metoprolol -continue to monitor for active bleeding (9) CAD (coronary artery disease) Current Visit: No Status: Chronic Qualifiers: Coronary Disease-Associated Artery/Lesion type: [place] artery [place] vs. transplanted heart: [place] heart Associated angina: with unstable angina Qualified Code(s): I25.110 - Atherosclerotic heart disease of [place] coronary artery with unstable angina pectoris (10) Essential hypertension Current Visit: No Status: Chronic Assessment and plan: History of hypertension. Blood pressure stable. -Continue Toprol 25 mg which is decreased from home 50 mg due to HR in 50s. (11) DVT prophylaxis Current Visit: No Status: Acute Assessment and plan: on eliquis - Time Spent With Patient Total time spent is greater than 50% in coordination of care (as documented) at patient's floor/unit and/or counseling patient:
[2018-10-07 17:38] LABS: Bilirubin,Urine Negative (Negative); Blood,Urine Negative (Negative); Clarity,Urine Clear (Clear); Color,Urine Yellow (Yellow); Glucose,Urine (UA) >=1000 mg/dL (Normal); Ketones,Urine Trace mg/dL (Negative); Leukocyte Esterase,Urine Negative (Negative); Nitrite,Urine Positive (Negative); Protein,Urine Trace mg/dL (Neg-Trace); Specific Gravity,Urine 1.027 (1.010-1.025); Urobilinogen,Urine Normal (Normal)
[2018-10-07 17:40] LABS: Bacteria,Urine None Seen per hpf (None-Few); Hyaline Casts,Urine None Seen per lpf (None-Few); Squamous Epithelial Cell,Urine Moderate per lpf (None-Few); WBC,Urine 0-3 per hpf (0-3)
[2018-10-07] MEDS ORDERED: Naloxone 0.4 MG/ML INJ IVP PRN (17:49)
[2018-10-07] MEDS ORDERED: *HR* Dextrose 50 % in Water (Syg) 50 ML SYRINGE IVP PRN (17:54)
[2018-10-07] MEDS ORDERED: Dextrose Gel 15 GM/37.5 ML TUBE PO PRN ×2 (17:54→18:05)
[2018-10-07] MEDS ORDERED: Insulin LISPRO 300 UNITS/3 ML VIAL SQ SCH ×2 (18:00→21:00)
[2018-10-07] MEDS ORDERED: D5% in Water 1,000 ML IVC PRN (18:05)
[2018-10-07] MEDS: Apixaban 5 MG TABLET PO SCH (22:57)
[2018-10-07] MEDS: Insulin LISPRO 300 UNITS/3 ML VIAL SQ SCH (22:58)
[2018-10-08 05:57] LABS: Hematocrit 30.3 % (37.5-50.1); Hemoglobin 9.9 g/dL (12.9-16.9); Mean Corpuscular HGB Conc 32.7 g/dL (31.6-35.5); Mean Platelet Volume 9.9 fL (9.4-12.4); Platelet Count 216 K/mcL (140-400); Red Blood Count 3.19 M/mcL (4.19-5.50); Red Cell Distribution Width 12.6 % (11.5-14.5)
[2018-10-08 06:21] LABS: Potassium 4.5 mEq/L (3.5-5.1)
[2018-10-08 06:30] LABS: Thyroid Stimulating Hormone 2.835 mcIU/mL (0.340-5.600)
--- NOTE | 2018-10-08 07:39 | Internal Med Progress Note ---
Hospitalist Progress Note - Encounter Date of Encounter: 10/08/18 Time of Encounter: 08:45 - Subjective Interval History: Mr. Collins is a 73 Yo M with a h/o a-fib, CKD, CAD with stent placement who initially presented to the ED with the complaint of dizziness and unsteadiness. Pt was found to have positive orthostatic hypotension on BP testing. Today pt denies dizziness, weakness, fatigue, numbness/tingling, chest pain, palpitations, dyspnea, NVD, constipation. He does admit to having a similar unsteady feeling like he described yesterday when he stands up quickly or when exerting himself. He also admits to a continued frontal H/A that is mild in nature. He denies recent vision changes but states he has had some double vision that glasses do not seem to correct. - Exam Vitals: Temp Pulse Resp BP Pulse Ox 97.6 F 75 18 119/74 100 10/08/18 03:02 10/08/18 03:02 10/08/18 03:02 10/08/18 03:02 10/08/18 03:02 Exam: General: AAOX3, NAD, pleasant Cardiovascular: RRR, normal s1 and s2, no murmurs Respiratory: CTAB, no wheezing, no rhonchi Abdomen: Normal bowel sounds X4, soft, non-tender to palpation, no rebound, no guarding Ext: no pedal or leg edema b/l, strength 5/5 in upper and lower extremities, sensation intact to light touch b/l in both Upper and lower extremities Skin: warm, dry and intact - Assessment and Plan (1) Dizziness Current Visit: Yes Status: Acute Assessment and Plan: Pt initially presented to the ED with the complaint of dizziness which he describes as an unsteady/swaying feeling Possibly 2/2 QTc prolongation, pituitary macroadenoma, bradycardia, medications (Ranexa, metoprolol), dehydration 10/07-EKG showed sinus rhythm with left axis deviation, HR 64, no ST-T wave changes, QTc prolongation of 512 10/07-Head CT unremarkable 10/07-Brain MRI showed New pituitary macroadenoma with suprasellar extension c ausing mild mass effect on the optic chiasm and invasion of the left cavernous sinus with greater than 50% case min of the left internal carotid artery but no associated arterial stenosis 10/08-Repeat EKG showed sinus rhythm, HR 62, no ST-T wave changes, no QTc prolongation at 424 10/08-TSH normal at 2.835 Pt had positive orthostatic hypotension with BP testing showing a drop in BP from 150/81 to 114/67 It was confirmed with cardiology that Ranexa can cause QT prolongation, they recommend holding ranexa and to monitor for chest pain, recommended that if pt develops chest pain to consult cardiology, otherwise can follow up outpatient Pt denies chest pain or shortness of breath at this time Plan: -ACTH, FSH, LH, GH, IGF-1, PRH and cortisol pending -follow up outpatient with neurosurgery per neuro recommendations -continue telemetry -Carotid U/S pending -continue Toprol to 25 mg daily (decreased from 50mg) -hold ranexa d/t QT prolongation -repeat orthostatics in AM -0.9% NS IV one bag (2) QT prolongation Current Visit: Yes Status: Acute Assessment and Plan: Pt intially presented with QTc prolongation of 512 on EKG at admission EKG today showed no QTc prolongation at 424, sinus rhythm with left axis deviation, HR 62 Cardiology curbsided today and recommended hold ranexa d/t QT prolonging effects Plan: -hold ranexa, plan as above -telemetry monitoring (3) Pituitary macroadenoma with extrasellar extension Current Visit: Yes Status: Acute Assessment and Plan: Pt was found to have a pituitary macroadenoma on imaging 10/07-Brain MRI showed New pituitary macroadenoma with suprasellar extension causing mild mass effect on the optic chiasm and invasion of the left cavernous sinus with greater than 50% case min of the left internal carotid artery but no associated arterial stenosis Pt denies recent vision changes but states he has had some double vision that glasses do not seem to correct. He does admit to a continued mild frontal H/A. Plan: -plan as above in dizziness (4) Acute kidney injury Current Visit: No Status: Resolved Assessment and Plan: Pt has CHLOE likely prerenal 2/2 dehydration, hypovolemia, and in CKD stage III Cr today 1.46 down from 1.55 yesterday, pt baseline is 1.2-1.3 BUN today is 34 down from 35 yesterday GFR is 47 Plan: -avoid nephrotoxic substances and renally dose medications -continue to monitor I&O -continue to monitor serum creatinine -0.9% NS IV one bag (5) Hyperkalemia Current Visit: Yes Status: Acute Assessment and Plan: Pt potassium today 4.5 down from 5.2 yesterday No T wave changes noted on EKG Plan: -continue to monitor (6) Elevated troponin Current Visit: No Status: Acute Assessment and Plan: Pt troponin elevated yesterday at 0.08 likely 2/2 to recent Left heart catheterization and PCI troponin on 10/04 was 0.29, trending down 10/08-No new ST changes on EKG Plan: -continue to monitor (7) CKD (chronic kidney disease) stage 3, GFR 30-59 ml/min Current Visit: Yes Status: Acute Assessment and Plan: CKD stage III with a GFR of 47, likely 2/2 DM vs HTN Pt baseline Cr is 1.2-1.3 Cr today is 1.46 down from 1.55 yesterday -Continue with plan as above (8) Diabetes Current Visit: Yes Status: Acute Assessment and Plan: Pt glucose today was 208 down from 318 yesterday Pt takes home insulin, and metformin Plan: -continue medium dose sliding scale insulin -cardiac diet -CHENTE david (9) PAF (paroxysmal atrial fibrillation) Current Visit: No Status: Acute Assessment and Plan: History of known atrial fibrillation, pt takes home eliquis and metoprolol for anticoagulation and rate control respectively 10/07/18 EKG-sinus rhythm with left axis deviation, HR 64 10/08/18 EKG- sinus rhythm with left axis deviation, HR 62 Plan: -continue eliquis and metoprolol (10) CAD (coronary artery disease) Current Visit: No Status: Chronic Assessment and Plan: Pt has h/o CAD with recent LHC with PCI/CONSTANTINE on 09/30 pt takes eliquis and plavix at home along with atorvastatin and ASA Plan: -continue home eliquis, plavix, ASA and statin (11) Essential hypertension Current Visit: No Status: Chronic Assessment and Plan: Pt BP today 107-124/57-74, yesterday 119-155/ 69-84 Plan: -Continue Toprol 25 mg which is decreased from home 50 mg due to HR in 50s (12) DVT prophylaxis Current Visit: No Status: Acute Assessment and Plan: Plan: -continue home eliquis - Time Spent with Patient Total time spent is greater than 50% in coordination of care (as documented) at patient's floor/unit and/or counseling patient: Internal Medicine: Result - Labs CBC & Chem 7: 10/08/18 05:42 10/08/18 05:42 Labs: Short CBC 10/07/18 10/08/18 Range/Units 14:01 05:42 WBC 8.0 6.2 (4.3-11.1) K/mcL Hgb 10.3 L 9.9 L (12.9-16.9) g/dL Hct 31.1 L 30.3 L (37.5-50.1) % Plt Count 227 216 (140-400) K/mcL Neutrophils # 6.5 (1.6-8.9) K/mcL BMP 10/07/18 10/08/18 14:01 05:42 Sodium 136 137 Potassium 5.2 H 4.5 Chloride 101 104 Carbon Dioxide 21 L 25 BUN 35 H 34 H Creatinine 1.55 H 1.46 H Glucose 318 H 208 H Calcium 8.9 9.0 Cardiac Enzymes 10/07/18 Range/Units 14:01 Troponin I 0.08 H* (< 0.04) ng/mL Urine 10/07/18 Range/Units 17:20 Urine Color Yellow (Yellow) Urine Clarity Clear (Clear) Urine pH 5.0 (5.0-8.0) pH Units Ur Specific [place] 1.027 H (1.010-1.025) Urine Protein Trace (Neg-Trace) mg/dL Urine Glucose (UA) >=1000 H (Normal) mg/dL - Impressions Impressions Chest X-Ray 10/07/18 13:43 IMPRESSION: No acute cardiopulmonary disease D/ / 10/07/2018 14:00:24 Tam Ohara MD / [facility] Interpreting Provider: Tam Ohara MD Head CT 10/07/18 13:44 IMPRESSION: No acute intracranial abnormality. D/ / Amari Alvarado MD / Amari Alvarado MD Interpreting Provider: Amari Alvarado MD Brain MRI 10/07/18 17:51 IMPRESSION: 1. No acute intracranial abnormality. 2. Mild chronic white matter microvascular ischemic changes. 3. New pituitary macroadenoma with suprasellar extension causing mild mass effect on the optic chiasm and invasion of the left cavernous sinus with greater than 50% case min of the left internal carotid artery but no associated arterial stenosis. D/ / Pierre Mead / Pierre Mead Interpreting Provider: Pierre Mead Consult Discharge Plan - Plan Referrals: Jhonny Cazares MD [Partnered Physician] - 10/16/18 11:30 am Brent Vu DO [Primary Care Provider] - 10/14/18 3:40 pm (8) Diabetes Qualifiers: Diabetes mellitus type: type 2 Diabetes mellitus assisted insulin use: unspecified assisted insulin use status Chronic kidney disease stage: stage 3 (moderate) (10) CAD (coronary artery disease) Qualifiers: Coronary Disease-Associated Artery/Lesion type: [place] artery [place] vs. transplanted heart: [place] heart Associated angina: with unstable angina Qualified Code(s): I25.110 - Atherosclerotic heart disease of [place] coronary artery with unstable angina pectoris
[2018-10-08] MEDS: Metoprolol XL (24 HR) Succ 25 MG TAB.ER.24H PO SCH (07:56)
[2018-10-08] MEDS: Insulin LISPRO 300 UNITS/3 ML VIAL SQ SCH ×4 (07:56→21:04)
[2018-10-08] MEDS: Apixaban 5 MG TABLET PO SCH ×2 (07:57→21:06)
[2018-10-08] MEDS: Aspirin Enteric Coated 81 MG Tablet PO SCH (07:57)
--- NOTE | 2018-10-08 08:04 | Event Note ---
Date of Encounter: 10/08/18 Time of Encounter: 07:55 Patient was seen and examined. I agree with the progress note as written by the resident physician. No acute events. Feels well. Orhtostatic BP noted. MRI brain with pituitary macroadenoma with suprasellar etension causing mild mass effect on the optic chiasm and invasion of the left cavernous sinus with greater than 50% encasement of the left cavernous internal carotid artery but no associated cavernous internal carotid arrtery stenosis. Admitted yesterday with multiple symptoms including feeling dizziness on and off for about a year or so with varying severity. Never LOC. The day prior to admission was moving hay, he experienced an episode of dizziness that lasted about 30 min. This was associated with weakness in both arms. He is not sure if there was numbness or tingling but says they felt heavy. He had word finding difficulty. No chest pain. [place] and felt better but at that time felt weakness in both thighs. 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 He also experienced blurry vision. According to the , when EMS arrived, his systolic was in the 70s. He was given IV fluids in route. He was asymptomatic upon my evaluation. Noted to have a HR in the 50s while I was in the room. EKG with prolonged QTc. Was here a few times over the last few weeks. Had a cardiac stent recently. Was started on Ranexa a month or so ago. Last visit, his Ranexa was decreased to 500 mg BID from 1000 mg BID as they thought it may be causing his symptoms. Has mildly elevated trops in the ER which is expected post PCI. Has mild CHLOE on CKD as well GEN: NAD CVS: RRR. S1, S2, No m/r/g RESP: CTAB ABD: Soft, NT, ND, +BS EXT: No edema. 2+ DP. No rashes NEURO: Nonfocal MRI brain noted. Macroadenoma pushing on optic chiasm. Unlikely functioning but symptoms could be attributed to the mass effect on the optic chiasm and invasion of the left cavernous sinus with greater than 50% encasement of the left ca vernous internal carotid artery TSH normal. Can possibly send for ACTH, GH, prolactin levels. Can possibly contact an service provider and get their opinion. Will ask neurology to see if this is something we need to send him to a tertiary center for or have follow up outpatient with neurosurgery. ?? Decadron?? f/u on carotid duplex I still think his BB can be reduced as he is somewhat orthostatic Will gently hydrate today and check orthostatics again tomorrow. Monitor QTc. Repeat EKG Resume home meds
--- NOTE | 2018-10-08 10:45 | Neurology - Consult Note ---
<Jesus William - Last Filed: 10/08/18 13:02> Date of Encounter: 10/08/18 Time of Encounter: 10:45 Assessment and Plan (1) Pituitary macroadenoma with extrasellar extension Current Visit: Yes Status: Acute - Previously unknown pituitary macroadenoma measuring 1.8 x 1.3 x 1.4 cm on MRI - Evidence of suprasellar extension causing mild mass effect with compression of the optic chiasm - Patient does admit to blurriness in vision/double vision which he attributes to needing new glasses - Review of systems also positive for decreased libido and fatigue, however he has not had any symptoms of galactorrhea, peripheral visual field deficits - Patient did present with near syncopal episode in which he reports has been chronic for the last 2 years Plan - At this time, suspect that his syncopal episodes are more likely related to orthostatic hypotension given positive orthostatic vital signs as well as previously known history - Agree with obtaining hormonal levels to assess for secreting adenoma versus nonsecreting - Recommend formal visual field testing as well as neurosurgical consult however this may be done as an outpatient. - I suspect at this time that these findings are likely incidental. Visual disturbances may be related however it does not is not classically. - No immediate need for transfer at this time, however patient should have follow-up as there is a possibility that this adenoma may continue to grow and worsen any symptoms - These findings was discussed with the patient and his was at bedside, the y are agreeable to plan. All questions were answered (2) Near syncope Current Visit: Yes Status: Acute - As above - Lower suspicion that this may be related to intracranial etiology. More likely related to orthostatic hypotension and cardiac syncope in the setting of recent medication changes and known history of orthostasis History of Present Illness Chief complaint: Presyncope HPI: Mr. Collins is a 73 year old male with past medical history of atrial fibri llation on eliquis, CAD with recent drug-eluting stent placement on 09/30/18, diabetes. He presented to the emergency room with complaint of presyncopal episode. Neurology was consulted on 10/08/18 for MRI findings of pituitary macroadenoma with mild mass effect on the optic chiasm. Patient states that on afternoon of admission, he angeline from a seated position and walked approximately 15 feet when he began to feel symptoms of lightheadedness and was able to return to a seated position with assistance of nearby friends. He denies any loss of consciousness or hitting his head. He states that he has been dealing with orthostatic hypotension for approximately 2 years and does have episodes very similar to these from time to time. He denies any associated symptoms of new chest pains, palpitations, shortness of breath, fevers, chills, nausea, vomiting, numbness, tingling. He does admit to some decreased sensation while walking barefoot but attributes this to calluses. He also admits to generalized weakness which has been progressive and waxes and wanes. He also admits to some changes in vision for the past year or 2, he states that he has been experiencing some double vision and believes he needs new glasses. He also admits to tinnitus which has been present for some time. He denies any peripheral vision deficits. He does admit to absence of libido, reporting approximately one or 2 erections in the past 5 years. Of note, he was admitted to this facility on 09/30/18 for ACS and did receive a stent to the ramus 85% lesion. He was started on Plavix as well as Ranexa. He has followed up with cardiology outpatient since then and his dose for Ranexa was decreased from 1000 mg twice a day to 500 mg twice a day due to symptoms of dizziness. He denies any other new medications in this time. On presentation to the emergency room, vital signs were within normal limits. Orthostatic blood pressures were obtained and were positive from sitting to standing position. Laboratory results were significant for a baseline anemia at 10.3, potassium of 5.2, BUNs/creatinine of 35/1.55 which appears to be about his baseline. Glucose was also elevated at 298 and troponin was elevated at 0.08 which is down trending from recent PCI/stent. EKG showed atrial fibrillation without any acute changes. Chest x-ray was negative for acute process. Head CT was obtained and negative for acute process. MRI of the head was also obtained and showed no acute process however did note a new pituitary macroadenoma measuring 1.8 x 1.3 x 1.4 cm causing mild mass effect on the optic chiasm and invasion of the left cavernous sinus. Today during interview, patient is doing well with no apparent complaints. He is not experiencing any current symptoms of numbness, tingling, weakness but does continue to complain of vision changes as above. No acute events overnight and all questions were answered. Past Med Surg Social Fam HX - Past Medical History Medical history: atrial fibrillation, coronary artery disease, dementia, diabetes Additional medical history: Agent [place] exposure Psychiatric history: ADHD, PTSD - Past Surgical History Surgical History: angioplasty/stent, orthopedic, other, tonsilectomy - Social History Smoking Status: Never smoker Smokeless Tobacco Status: No Alcohol use: occasionally Drug use: none - Family History Mother Living Status: Hx Family Cancer: Yes (Lung CA) Hx Family Endocrine Disorder: Yes (Diabetes) Father Living Status: Hx Family Respiratory Disorders: Yes (Chronic PNA) Medications and Allergies Atomoxetine HCl [Strattera] 80 mg PO DAILY 11/04/17 [History] Atorvastatin [Lipitor] 40 mg PO HS 11/04/17 [History] Ezetimibe [Zetia] 10 mg PO DAILY 11/04/17 [History] Insulin Regular Human [Humulin R] 4 - 14 unit SQ TID PRN 11/04/17 [History] Metformin HCl [Glucophage] 1,000 mg PO BID 11/04/17 [History] Venlafaxine HCl [Venlafaxine HCl ER] 225 mg PO DAILY 11/04/17 [History] Apixaban [Eliquis] 5 mg PO BID #60 tablet 11/06/17 [Rx] Aspirin [Adult Aspirin] 81 mg PO DAILY 09/18/18 [History] Isosorbide MONOnitrate (24 HR) [Imdur] 30 mg PO DAILY 09/18/18 [History] Ranitidine HCl [Acid Accounting Clerk] 150 mg PO BID 09/18/18 [History] Metoprolol Succinate [Toprol Xl] 50 mg PO DAILY 09/28/18 [History] Melatonin 10 mg PO HS 09/30/18 [History] Nitroglycerin [Nitrostat] 0.4 mg SL Q5MIN PRN MDD 3DOSES 09/30/18 [History] Clopidogrel [Plavix] 75 mg PO DAILY #30 tablet 10/01/18 [Rx] Ranolazine [Ranexa] 500 mg PO BID 30 Days #60 tab.er.12h 10/05/18 [Rx] Memantine HCl 10 mg PO BID 10/08/18 [History] Allergy/AdvReac Type Severity Reaction Status Date / Time No Known Allergies Allergy Verified 10/03/18 14:42 All Systems: The remainder of the systems were reviewed and are negative Review of Systems: - Constitutional: Admits to generalized fatigue. Denies fevers, chills, weight loss - Head/Neck: Denies ALANIS, neck stiffness - EENT: Admits to vision changes/blurriness, tinnitus. Denies rhinorrhea, congestion, sore throat, odynaphagia - CVS: Denies chest pain, palpitations, PHILLIPS, orthopnea, edema - Pulm: Denies SOB, cough, sputum, hematemesis, wheezing - GI: Denies abdominal pain, anorexia, nausea, vomiting, - : Denies dysuria, increased frequency, urgency, hematuria, - Heme: Denies ease of bleeding or bruising - MSK: Denies joint pain, limited ROM - Skin: Denies rashes, ulcers, color changes, - Neuro: Admits to lightheadedness. Denies ALANIS, paresthesias, focal deficits, ataxia - Endocrine: Admits to decreased libido Physical Examination - Vital Signs Vital Signs: Initial Vital Signs Temp Pulse Resp BP Pulse Ox 97.5 F L 63 16 133/74 95 10/07/18 13:26 10/07/18 13:26 10/07/18 13:26 10/07/18 13:26 10/07/18 13:26 - Constitutional General appearance: comfortable - Neurologic Sensorimotor examination: intact Detailed motor examination: grossly full strength in all extremities Motor examination - right side: 5/5: deltoids, biceps, triceps, wrist flexion, wrist extension, editor greeting card, hip flexors, quadriceps, toe extension (EHL), plantarflexion Motor examination - left side: 5/5: deltoids, biceps, triceps, wrist flexion, wrist extension, hip flexors, editor greeting card, quadriceps, toe extension (EHL), plantarflexion Detailed sensory examination: intact Reflexes: Biceps: 2+, Brachioradialis: 2+, Patella: 2+, Achilles: 2+ Mental Status Examination: awake, alert, oriented to person, oriented to place, oriented to time, follows commands appropriately, answers questions appropriately, no agnosia, no aphasia, opens eyes to voice Cranial nerve examination: PERRL, EOMI, visual ayers intact, sensory to face intact, no facial asymmetry is present, no dysarthria, hearing is intact symmetrically, soft palate elevates bilaterally upon phonation, flexes SCM and trapezius muscles symmetrically with full power, tongue protrudes midline, no atrophy or facial fasiculations present Cerebellar examination: no dysmetria, performs finger to nose and heel to shelley symmetrically without ataxia Results - Laboratory Findings CBC and BMP: 10/08/18 05:42 10/08/18 05:42 Abnormal lab findings: Abnormal lab results RBC 3.19 M/mcL (4.19-5.50) L 10/08/18 05:42 Hgb 9.9 g/dL (12.9-16.9) L 10/08/18 05:42 Hct 30.3 % (37.5-50.1) L 10/08/18 05:42 APTT 42.1 Seconds (26.0-36.0) H D 10/07/18 14:01 BUN 34 mg/dL (8-23) H 10/08/18 05:42 Creatinine 1.46 mg/dL (0.70-1.30) H 10/08/18 05:42 Est GFR ( Amer) 57 (> 60) L 10/08/18 05:42 Est GFR (Non-Af Amer) 47 (> 60) L 10/08/18 05:42 Glucose 208 mg/dL (70-105) H 10/08/18 05:42 POC Glucose 298 mg/dL (70-99) H 10/07/18 19:07 Troponin I 0.08 ng/mL (< 0.04) H* 10/07/18 14:01 Ur Specific [place] 1.027 (1.010-1.025) H 10/07/18 17:20 Urine Glucose (UA) >=1000 mg/dL (Normal) H 10/07/18 17:20 Urine Ketones Trace mg/dL (Negative) H 10/07/18 17:20 Urine Nitrite Positive (Negative) A 10/07/18 17:20 Urine Microscopic RBC 3-5 per hpf (0-3) H 10/07/18 17:20 Ur Squamous Epith Cells Moderate per lpf (None-Few) H 10/07/18 17:20 Ur Culture Indicated? YES (NO) A 10/07/18 17:20 Consult Discharge Plan - Plan Referrals: Jhonny Cazares MD [Partnered Physician] - 10/16/18 11:30 am Brent Vu, [Primary Care Provider] - 10/14/18 3:40 pm <Oscar Mendes I - Last Filed: 10/09/18 07:51> Date of Encounter: 10/08/18 Assessment and Plan (1) Near syncope Current Visit: Yes Status: Acute (2) Pituitary macroadenoma with extrasellar extension Current Visit: Yes Status: Acute Pt was seen and examined, my medical decision was reviewed with the Resident Physician, I agree with the documented findings, disposition and treatment plan, as described except to the extent set forth below. Though on formal neurological examination. Patient did not have any visual field deficit, but he would need formal visual field testing and would need ophthalmology consultation as an outpatient. At the same time he would also need endocrine consultation, for further workup and perhaps may benefit from medical treatment, and would also need neurosurgical evaluation as an outpatient Clinically is stable and no other focal motor neurological deficit. Oscar Mendes MD History of Present Illness HPI: Mr. Collins is a 73 year old male All Systems: The remainder of the systems were reviewed and are negative Physical Examination - Vital Signs Vital Signs: Initial Vital Signs Temp Pulse Resp BP Pulse Ox 97.5 F L 63 16 133/74 95 10/07/18 13:26 10/07/18 13:26 10/07/18 13:26 10/07/18 13:26 10/07/18 13:26 Results - Laboratory Findings CBC and BMP: 10/09/18 04:45 10/09/18 04:45 Abnormal lab findings: Abnormal lab results RBC 3.19 M/mcL (4.19-5.50) L 10/08/18 05:42 Hgb 9.9 g/dL (12.9-16.9) L 10/08/18 05:42 Hct 30.3 % (37.5-50.1) L 10/08/18 05:42 APTT 42.1 Seconds (26.0-36.0) H D 10/07/18 14:01 BUN 34 mg/dL (8-23) H 10/08/18 05:42 Creatinine 1.46 mg/dL (0.70-1.30) H 10/08/18 05:42 Est GFR ( Amer) 57 (> 60) L 10/08/18 05:42 Est GFR (Non-Af Amer) 47 (> 60) L 10/08/18 05:42 Glucose 208 mg/dL (70-105) H 10/08/18 05:42 POC Glucose 159 mg/dL (70-99) H 10/08/18 19:56 Troponin I 0.08 ng/mL (< 0.04) H* 10/07/18 14:01 Prolactin 19.36 ng/mL (3.00-14.70) H 10/08/18 13:31 Ur Specific [place] 1.027 (1.010-1.025) H 10/07/18 17:20 Urine Glucose (UA) >=1000 mg/dL (Normal) H 10/07/18 17:20 Urine Ketones Trace mg/dL (Negative) H 10/07/18 17:20 Urine Nitrite Positive (Negative) A 10/07/18 17:20 Urine Microscopic RBC 3-5 per hpf (0-3) H 10/07/18 17:20 Ur Squamous Epith Cells Moderate per lpf (None-Few) H 10/07/18 17:20 Ur Culture Indicated? YES (NO) A 10/07/18 17:20
[2018-10-08] MEDS ORDERED: 0.9 % Sodium Chloride 1,000 ML IVC SCH (11:45)
[2018-10-08 16:24] LABS: Prolactin 19.36 ng/mL (3.00-14.70)
[2018-10-08 16:47] LABS: Follicle Stimulating Hormone 5.8 mIU/mL (1.42-15.40)
[2018-10-08 16:48] LABS: Luteinizing Hormone 4.97 mIU/mL (1.24-7.80)
--- NOTE | 2018-10-08 17:08 | Electrocardiograph Report ---
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
[2018-10-09 05:04] LABS: Basophils % 0.3 %; Eosinophils # 0.2 K/mcL (0.0-0.6); Eosinophils % 3.2 %; Hematocrit 31.4 % (37.5-50.1); Hemoglobin 10.2 g/dL (12.9-16.9); Immature Granulocytes % 0.3 % (0-4); Lymphocytes # 1.4 K/mcL (0.6-4.6); Lymphocytes % 20.8 %; Mean Corpuscular HGB Conc 32.5 g/dL (31.6-35.5); Mean Corpuscular Hemoglobin 31.3 pg (28.0-33.3); Mean Corpuscular Volume 96.3 fL (83.0-100.0); Mean Platelet Volume 9.7 fL (9.4-12.4); Monocytes # 0.6 K/mcL (0.0-1.3); Monocytes % 8.9 %; Neutrophils # 4.5 K/mcL (1.6-8.9); Platelet Count 228 K/mcL (140-400); Red Blood Count 3.26 M/mcL (4.19-5.50); Segmented Neutrophils % 66.5 %
[2018-10-09 05:23] LABS: Calcium 9.2 mg/dL (8.6-10.3); Potassium 4.7 mEq/L (3.5-5.1)
--- NOTE | 2018-10-09 07:52 | Internal Med Progress Note ---
<Christal Boudreaux - Last Filed: 10/09/18 10:14> Hospitalist Progress Note - Encounter Date of Encounter: 10/09/18 Time of Encounter: 08:10 - Subjective Interval History: Mr. Collins is a 73 Yo M with a h/o a-fib, CKD, CAD with stent placement who initially presented to the ED with the complaint of dizziness and unsteadiness. Pt was found to have positive orthostatic hypotension on BP testing. Today pt denies dizziness, fatigue, chest pain, palpitations, dyspnea, NVD, constipation. He does admit to a continued unsteady feeling like he described on admission when he stands up quickly or when exerting himself, however he states that this is much improved since yesterday. 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 He admits to a continued frontal H/A that is dull in nature and improved since yesterday. He denies galactorrhea and recent vision changes but states he has had some double vision that glasses do not seem to correct. - Exam Vitals: Temp Pulse Resp BP Pulse Ox 98.1 F 78 16 133/82 99 10/09/18 03:33 10/09/18 03:33 10/09/18 03:33 10/09/18 03:33 10/09/18 03:33 Exam: General: AAOX3, NAD, pleasant Cardiovascular: RRR, normal s1 and s2, no murmurs Respiratory: CTAB, no wheezing, no rhonchi Abdomen: Normal bowel sounds X4, soft, non-tender to palpation, no rebound, no guarding Ext: no pedal or leg edema b/l, strength 5/5 in upper and lower extremities Skin: warm, dry and intact - Assessment and Plan (1) Dizziness Current Visit: Yes Status: Acute Assessment and Plan: Pt initially presented to the ED with the complaint of dizziness which he describes as an unsteady/swaying feeling Possibly 2/2 QTc prolongation, pituitary macroadenoma, bradycardia, medications (Ranexa, metoprolol), dehydration 10/07-EKG showed sinus rhythm with left axis deviation, HR 64, no ST-T wave changes, QTc prolongation of 512 10/07-Head CT unremarkable 10/07-Brain MRI showed New pituitary macroadenoma with suprasellar extension causing mild mass effect on the optic chiasm and invasion of the left cavernous sinus with greater than 50% case min of the left internal carotid artery but no associated arterial stenosis 10/07-Pt had positive orthostatic hypotension with BP testing showing a drop in BP from 150/81 to 114/67 10/08-Repeat EKG showed sinus rhythm, HR 62, no ST-T wave changes, no QTc prolongation at 424 10/08-Carotid U/S showed minimal non-stenotic plaque bilaterally 10/08-TSH normal at 2.835 10/08-LH and FSH normal at 4.97 and 5.80 respectively 10/08-Prolactin elevated at 19.36 It was confirmed with cardiology that Ranexa can cause QT prolongation, they recommend holding ranexa and to monitor for chest pain, recommended that if pt develops chest pain to consult cardiology, otherwise can follow up outpatient Pt denies chest pain or shortness of breath at this time Plan: -ACTH, GH, IGF-1, and cortisol pending -follow up outpatient with neurosurgery and endocrinology per neuro recommendations -visual field testing outpatient per neuro -continue telemetry -continue Toprol to 25 mg daily (decreased from 50mg) -hold ranexa d/t QT prolongation -repeat orthostatics -0.9% NS IV one bag (2) QT prolongation Current Visit: Yes Status: Acute Assessment and Plan: Pt intially presented with QTc prolongation of 512 on EKG at admission EKG yesterday showed no QTc prolongation at 424, sinus rhythm with left axis deviation, HR 62 Cardiology curbsided yesterday and recommended hold ranexa d/t QT prolonging effects Plan: -hold ranexa, plan as above -telemetry monitoring (3) Pituitary macroadenoma with extrasellar extension Current Visit: Yes Status: Acute Assessment and Plan: Pt was found to have a pituitary macroadenoma on imaging 10/07-Brain MRI showed New pituitary macroadenoma with suprasellar extension causing mild mass effect on the optic chiasm and invasion of the left cavernous sinus with greater than 50% case min of the left internal carotid artery but no associated arterial stenosis Pt denies recent vision changes but states he has had some double vision that glasses do not seem to correct. He does admit to a continued mild dull frontal H/A that has improved since yesterday, denies galactorrhea. Plan: -plan as above in dizziness (4) Acute kidney injury Current Visit: No Status: Resolved Assessment and Plan: Pt has CHLOE likely prerenal 2/2 dehydration, hypovolemia, and in CKD stage III Pt CHLOE has worsened today despite receiving one bag of 0.9% NS IVF yesterday Cr today 1.52 up from 1.46 yesterday, pt baseline is 1.2-1.3 BUN today is 30 down from 34 yesterday GFR is 45 Plan: -avoid nephrotoxic substances and renally dose medications -continue to monitor I&O -continue to monitor serum creatinine -start 0.9% NS IV one bag (5) Hyperkalemia Current Visit: Yes Status: Acute Assessment and Plan: Pt potassium today 4.7 up from 4.5 yesterday No T wave changes noted on EKG Plan: -continue to monitor -continue telemetry monitoring (6) Elevated troponin Current Visit: No Status: Acute Assessment and Plan: Pt troponin elevated on 10/07 at 0.08 likely 2/2 to recent Left heart catheterization and PCI performed on 09/30/18 troponin on 10/04 was 0.29, trending down 10/08-No new ST-T wave changes on EKG Plan: -continue to monitor (7) CKD (chronic kidney disease) stage 3, GFR 30-59 ml/min Current Visit: Yes Status: Acute Assessment and Plan: CKD stage III with a GFR of 45, likely 2/2 DM vs HTN Pt baseline Cr is 1.2-1.3 Cr today is 1.52 up from 1.46 yesterday -Continue with plan as above (8) Diabetes Current Visit: Yes Status: Acute Assessment and Plan: Pt glucose today was 211 up from 208 yesterday Pt takes home insulin, and metformin Plan: -continue corrective medium dose sliding scale insulin -cardiac diet -accuchecks ACHS (9) PAF (paroxysmal atrial fibrillation) Current Visit: No Status: Acute Assessment and Plan: History of known atrial fibrillation, pt takes home eliquis and metoprolol for anticoagulation and rate control respectively 10/07/18 EKG-sinus rhythm with left axis deviation, HR 64 10/08/18 EKG- sinus rhythm with left axis deviation, HR 62 Plan: -continue eliquis and metoprolol -telemetry monitoring (10) CAD (coronary artery disease) Current Visit: No Status: Chronic Assessment and Plan: Pt has h/o CAD with recent LHC with PCI/CONSTANTINE on 09/30 pt takes eliquis and plavix at home along with atorvastatin and ASA Plan: -continue home eliquis, plavix, ASA and statin (11) Essential hypertension Current Visit: No Status: Chronic Assessment and Plan: Pt BP today 129-133/78-82, yesterday 107-127/57-77 Plan: -Continue Toprol 25 mg which is decreased from home 50 mg due to HR in 50s (12) DVT prophylaxis Current Visit: No Status: Acute Assessment and Plan: Plan: -continue home eliquis - Time Spent with Patient Total time spent is greater than 50% in coordination of care (as documented) at patient's floor/unit and/or counseling patient: Internal Medicine: Result - Labs CBC & Chem 7: 10/09/18 04:45 10/09/18 04:45 Labs: Short CBC 10/09/18 Range/Units 04:45 WBC 6.8 (4.3-11.1) K/mcL Hgb 10.2 L (12.9-16.9) g/dL Hct 31.4 L (37.5-50.1) % Plt Count 228 (140-400) K/mcL Neutrophils # 4.5 (1.6-8.9) K/mcL BMP 10/09/18 04:45 Sodium 141 Potassium 4.7 Chloride 106 Carbon Dioxide 27 BUN 30 H Creatinine 1.52 H Glucose 211 H Calcium 9.2 Consult Discharge Plan - Plan Additional Instructions: Follow up with your PCP in 3-5 days for reevaluation. Have repeat metabolic panel performed in 1 week to ensure resolution of acute kidney injury. Stop taking ranexa and metoprolol 50mg. Continue taking other home medications. Take metoprolol 25mg daily; a prescription for this medication has been sent to the pharmacy. Followup with cardiology and neurology as scheduled. You will also need endocrinology and neurosurgery followup, which will need to be facilitated by your PCP. Return to the emergency department if you have worsening symptoms, or if you develop chest pain, shortness of breath, or other concerning symptoms. Referrals: [facility] [Provider Group] [facility] [Provider Group] - 10/30/18 11:00 am Jhonny Cazares MD [Partnered Physician] - 10/16/18 11:30 am Brent Vu DO [Primary Care Provider] - 10/14/18 3:40 pm Prescriptions: Metoprolol XL (24 HR) Succ [Toprol Xl] 25 mg PO DAILY #30 tab.er.24h <Cam Hernandez - Last Filed: 10/09/18 18:13> Hospitalist Progress Note - Encounter Date of Encounter: 10/09/18 - Exam Vitals: Temp Pulse Resp BP Pulse Ox 97.7 F 77 16 119/69 98 10/09/18 15:27 10/09/18 15:27 10/09/18 15:27 10/09/18 15:27 10/09/18 15:27 - Assessment and Plan (1) Orthostatic hypotension Current Visit: Yes Status: Acute (2) DVT prophylaxis Current Visit: No Status: Acute (3) PAF (paroxysmal atrial fibrillation) Current Visit: No Status: Acute (4) Acute kidney injury Current Visit: No Status: Resolved (5) Dizziness Current Visit: Yes Status: Acute (6) CAD (coronary artery disease) Current Visit: No Status: Chronic (7) Essential hypertension Current Visit: No Status: Chronic (8) Elevated troponin Current Visit: No Status: Acute (9) CKD (chronic kidney disease) stage 3, GFR 30-59 ml/min Current Visit: Yes Status: Acute (10) Diabetes Current Visit: Yes Status: Acute (11) Hyperkalemia Current Visit: Yes Status: Resolved (12) QT prolongation Current Visit: Yes Status: Acute - Time Spent with Patient Total time spent is greater than 50% in coordination of care (as documented) at patient's floor/unit and/or counseling patient: Internal Medicine: Result - Labs CBC & Chem 7: 10/09/18 04:45 10/09/18 15:45 Labs: Short CBC 10/09/18 Range/Units 04:45 WBC 6.8 (4.3-11.1) K/mcL Hgb 10.2 L (12.9-16.9) g/dL Hct 31.4 L (37.5-50.1) % Plt Count 228 (140-400) K/mcL Neutrophils # 4.5 (1.6-8.9) K/mcL BMP 10/09/18 10/09/18 04:45 15:45 Sodium 141 141 Potassium 4.7 4.6 Chloride 106 106 Carbon Dioxide 27 26 BUN 30 H 30 H Creatinine 1.52 H 1.63 H Glucose 211 H 233 H Calcium 9.2 8.8 - Attending Attestation The history, physical exam, and medical decision making was performed by the medical student either while I was physically present and actively involved or I personally re-performed the exam and medical decision making. I have verified the accuracy of the medical student's documentation with regards to the history, physical exam findings, and medical decision making on 10/09/18. Mr Collins is currently in observation for dizziness due to orthostasis. He continues to be orthostatic. He remains moderate to high risk. Mr Collisn is continuing to slowly improve. He remains very orthostatic today a nd creatinine has increased. No fever or chills. No CP or SOB. No GI issues. Exam alert Comfortable and pleasant Normocephalic Mucus membranes dry Neck supple Heart reg and not tachy No wheeze abd soft and nontender No edema Moves all extremities Pulses palpable I/P 1. Dizziness due to orthostatic hypotension - persists. Continue hydration tonight and reassess tomorrow 2. Pituitary macroadenoma - outpatient work up. 3. Acute renal failure - probably ATN. Hydrate tonight and recheck in AM. 4. CKD 3 - follow Further diagnoses and plan as above. <Christal Boudreaux - Last Filed: 10/09/18 10:14> (8) Diabetes Qualifiers: Diabetes mellitus type: type 2 Diabetes mellitus fdc insulin use: unspecified terminal clerk insulin use status Chronic kidney disease stage: stage 3 (moderate) (10) CAD (coronary artery disease) Qualifiers: Coronary Disease-Associated Artery/Lesion type: [place] artery [place] vs. transplanted heart: [place] heart Associated angina: with unstable angina Qualified Code(s): I25.110 - Atherosclerotic heart disease of [place] coronary artery with unstable angina pectoris <Cam Hernandez - Last Filed: 10/09/18 18:13> (6) CAD (coronary artery disease) Qualifiers: Coronary Disease-Associated Artery/Lesion type: [place] artery [place] vs. transplanted heart: [place] heart Associated angina: without angina Qualified Code(s): I25.10 - Atherosclerotic heart disease of [place] coronary artery without angina pectoris (10) Diabetes Qualifiers: Diabetes mellitus type: type 2 Diabetes mellitus fdc insulin use: unspecified terminal clerk insulin use status Diabetes mellitus complication status: with kidney complications Diabetes mellitus complication detail: with chronic kidney disease Chronic kidney disease stage: stage 3 (moderate) Qualified Code(s): E11.22 - Type 2 diabetes mellitus with diabetic chronic kidney disease; N18.3 - Chronic kidney disease, stage 3 (moderate)
[2018-10-09] MEDS: Insulin LISPRO 300 UNITS/3 ML VIAL SQ SCH ×4 (08:09→20:53)
[2018-10-09] MEDS: Aspirin Enteric Coated 81 MG Tablet PO SCH (08:10)
[2018-10-09] MEDS: Apixaban 5 MG TABLET PO SCH ×2 (08:10→20:49)
[2018-10-09] MEDS: Metoprolol XL (24 HR) Succ 25 MG TAB.ER.24H PO SCH (08:11)
[2018-10-09] MEDS ORDERED: 0.9 % Sodium Chloride 1,000 ML IVC SCH ×2 (08:15→10:40)
--- NOTE | 2018-10-09 08:34 | Neurology Progress Note ---
<Jesus William - Last Filed: 10/09/18 11:41> Date of Encounter: 10/09/18 Time of Encounter: 10:03 Assessment and Plan (1) Pituitary macroadenoma with extrasellar extension Current Visit: Yes Status: Acute - Previously unknown pituitary macroadenoma measuring 1.8 x 1.3 x 1.4 cm on MRI - Evidence of suprasellar extension causing mild mass effect with compression of the optic chiasm on MRI - Patient does admit to blurriness in vision/double vision which he attributes to needing new glasses - Review of systems also positive for decreased libido and fatigue, however he has not had any symptoms of galactorrhea, peripheral visual field deficits - Patient did present with near syncopal episode in which he reports has been chronic for the last 2 years - Preliminary laboratory results showing normal levels of TSH, LH, FSH. Prolactin elevated at 19 - Additional hormonal levels pending Plan - At this time, suspect that his syncopal episodes are more likely related to orthostatic hypotension given positive orthostatic vital signs as well as previously known history - Agree with obtaining hormonal levels to assess for secreting adenoma versus nonsecreting - Recommend formal visual field testing as well as neurosurgical consult however this may be done as an outpatient. - I suspect at this time that these findings are likely incidental. Visual disturbances may be related however it does not is not classically. - No immediate need for transfer at this time, however patient should have follow-up as there is a possibility that this adenoma may continue to grow and worsen any symptoms - These findings was discussed with the patient and his was at bedside, they are agreeable to plan. All questions were answered - Follow up with Neuro as outpatient upon discharge. At this time, neurology will sign off. Please do not hesitate to reconsult or call for questions. Thank you for allowing us to participate in Mr. Collins's care. (2) Near syncope Current Visit: Yes Status: Acute - As above - Lower suspicion that this may be related to intracranial etiology. More likely related to orthostatic hypotension and cardiac syncope in the setting of recent medication changes and known history of orthostasis Subjective Principal diagnosis: Pituitary macroadenoma Interval history: Patient was seen and examined at bedside this morning. He states that overall he is feeling well with no complaints at this time. He is back to his baseline. He continues to have no complaints of headache, nausea, vomiting, focal deficits or weakness. His vision still is a little bit blurry but he is not wearing his glasses. He continues to deny any peripheral vision loss. Objective - Constitutional Vitals: Temp Pulse Resp BP Pulse Ox 97.4 F L 71 15 129/78 97 10/09/18 07:58 10/09/18 07:58 10/09/18 07:58 10/09/18 07:58 10/09/18 07:58 General appearance: Present: cooperative, A&O X 3, no acute distress - Head Head exam: Present: atraumatic, normal inspection, normocephalic - Eye Eye exam: Present: EOMI, normal appearance, PERRL, conjuntiva pink. Absent: conjunctival injection, nystagmus Pupils: Present: PERRL - Extremities Exam Extremities exam: Present: full ROM, normal inspection - Neurological Exam Sensorimotor examination: Present: intact Motor Examination: Present: grossly full strength in all extremities Motor examination - right side: 5/5: deltoids, biceps, triceps, wrist flexion, wrist extension, network associate, hip flexors, tibialis Anterior, toe extension (EHL), plantarflexion Motor examination - left side: 5/5: deltoids, biceps, triceps, wrist flexion, wrist extension, hip flexors, network associate, quadriceps, toe extension (EHL), plantarflexion Sensation intact: Present: intact Mental Status Examination: Present: awake, alert, oriented to person, oriented t o place, oriented to time, follows commands appropriately, answers questions appropriately, no agnosia, no aphasia, opens eyes to voice Cranial nerve examination: Present: PERRL, EOMI, visual ayers intact, sensory to face intact, no facial asymmetry is present, no dysarthria, hearing is intact symmetrically, soft palate elevates bilaterally upon phonation, flexes SCM and trapezius muscles symmetrically with full power, tongue protrudes midline, no atrophy or facial fasiculations present Cerebellar examination: Present: no dysmetria, performs finger to nose and heel to shelley symmetrically without ataxia Results - Laboratory Findings CBC and BMP: 10/09/18 04:45 10/09/18 04:45 Abnormal lab findings: Abnormal lab results RBC 3.26 M/mcL (4.19-5.50) L 10/09/18 04:45 Hgb 10.2 g/dL (12.9-16.9) L 10/09/18 04:45 Hct 31.4 % (37.5-50.1) L 10/09/18 04:45 APTT 42.1 Seconds (26.0-36.0) H D 10/07/18 14:01 BUN 30 mg/dL (8-23) H 10/09/18 04:45 Creatinine 1.52 mg/dL (0.70-1.30) H 10/09/18 04:45 Est GFR ( Amer) 55 (> 60) L 10/09/18 04:45 Est GFR (Non-Af Amer) 45 (> 60) L 10/09/18 04:45 Glucose 211 mg/dL (70-105) H 10/09/18 04:45 POC Glucose 159 mg/dL (70-99) H 10/08/18 19:56 Calculated Osmolality 304 (280-300) H 10/09/18 04:45 Troponin I 0.08 ng/mL (< 0.04) H* 10/07/18 14:01 Prolactin 19.36 ng/mL (3.00-14.70) H 10/08/18 13:31 Ur Specific [place] 1.027 (1.010-1.025) H 10/07/18 17:20 Urine Glucose (UA) >=1000 mg/dL (Normal) H 10/07/18 17:20 Urine Ketones Trace mg/dL (Negative) H 10/07/18 17:20 Urine Nitrite Positive (Negative) A 10/07/18 17:20 Urine Microscopic RBC 3-5 per hpf (0-3) H 10/07/18 17:20 Ur Squamous Epith Cells Moderate per lpf (None-Few) H 10/07/18 17:20 Ur Culture Indicated? YES (NO) A 10/07/18 17:20 Consult Discharge Plan - Plan Referrals: [facility] [Provider Group] [facility] [Provider Group] - 10/30/18 11:00 am Jhonny Cazares MD [Partnered Physician] - 10/16/18 11:30 am Brent Vu DO [Primary Care Provider] - 10/14/18 3:40 pm <Oscar Mendes I - Last Filed: 10/09/18 12:56> Date of Encounter: 10/09/18 Assessment and Plan (1) Near syncope Current Visit: Yes Status: Acute (2) Pituitary macroadenoma with extrasellar extension Current Visit: Yes Status: Acute Pt was seen and examined, my medical decision was reviewed with the Resident Physician, I agree with the documented findings, disposition and treatment plan, as described except to the extent set forth below Oscar Mendes MD Objective - Constitutional Vitals: Temp Pulse Resp BP Pulse Ox 97.5 F L 52 16 124/62 99 10/09/18 11:14 10/09/18 12:03 10/09/18 11:14 10/09/18 12:03 10/09/18 11:14 Results - Laboratory Findings CBC and BMP: 10/09/18 04:45 10/09/18 04:45 Abnormal lab findings: Abnormal lab results RBC 3.26 M/mcL (4.19-5.50) L 10/09/18 04:45 Hgb 10.2 g/dL (12.9-16.9) L 10/09/18 04:45 Hct 31.4 % (37.5-50.1) L 10/09/18 04:45 APTT 42.1 Seconds (26.0-36.0) H D 10/07/18 14:01 BUN 30 mg/dL (8-23) H 10/09/18 04:45 Creatinine 1.52 mg/dL (0.70-1.30) H 10/09/18 04:45 Est GFR ( Amer) 55 (> 60) L 10/09/18 04:45 Est GFR (Non-Af Amer) 45 (> 60) L 10/09/18 04:45 Glucose 211 mg/dL (70-105) H 10/09/18 04:45 POC Glucose 159 mg/dL (70-99) H 10/08/18 19:56 Calculated Osmolality 304 (280-300) H 10/09/18 04:45 Troponin I 0.08 ng/mL (< 0.04) H* 10/07/18 14:01 Prolactin 19.36 ng/mL (3.00-14.70) H 10/08/18 13:31 Ur Specific [place] 1.027 (1.010-1.025) H 10/07/18 17:20 Urine Glucose (UA) >=1000 mg/dL (Normal) H 10/07/18 17:20 Urine Ketones Trace mg/dL (Negative) H 10/07/18 17:20 Urine Nitrite Positive (Negative) A 10/07/18 17:20 Urine Microscopic RBC 3-5 per hpf (0-3) H 10/07/18 17:20 Ur Squamous Epith Cells Moderate per lpf (None-Few) H 10/07/18 17:20 Ur Culture Indicated? YES (NO) A 10/07/18 17:20
--- NOTE | 2018-10-09 11:02 | Discharge Summary ---
<Brunilda Williamson N - Last Filed: 10/10/18 15:13> - NOTES TO OUTPATIENT PROVIDER Notes to Outpatient Provider: Patient was admitted for workup of dizziness. Patient was noted to have a prolonged QTC on initial EKG; ranexa was discontinued, with resolution of this abnormality on subsequent EKG. Patient's dose of metoprolol was decreased to 25 mg daily due to profound orthostatic hypotension. CT of the head was significant for a previously undiagnosed pituitary macroadenoma; patient was noted to have an elevated prolactin on laboratory studies. Patient was evaluated by neurology, and is to follow-up in the outpatient neurology clinic in 2-3 weeks. Patient will need referrals to both endocrinology and neurosurgery for evaluation regarding pituitary macroadenoma. Patient will also need formal visual field testing. Patient was noted to have an CHLOE during admission, which was managed with administration of IV fluids. Serum creatinine was improving prior to discharge; patient does have repeat BMP performed in 1 week, and is to follow up with his PCP for further management. Orders not resulted at time of discharge: Pending orders 10/08/18 10:42 EKG [ECG 12 lead ECG] [ECG] Routine 10/08/18 11:37 Cortisol Fr,Ur Random or 24hr Routine 10/08/18 13:31 ACTH Routine Growth Hormone Routine IGF-1 with calculated Z-Score Routine 10/09/18 15:40 BMP [Basic Metabolic Panel] Routine Date of Encounter: 10/10/18 Time of Encounter: 11:01 - Discharge Diagnosis (1) PAF (paroxysmal atrial fibrillation) Priority: Secondary Status: Acute (2) Acute kidney injury Priority: Secondary Status: Resolved (3) Dizziness Priority: Primary Status: Acute (4) CAD (coronary artery disease) Priority: Secondary Status: Chronic Qualifiers: Coronary Disease-Associated Artery/Lesion type: [place] artery [place] vs. transplanted heart: [place] heart Associated angina: without angina Qualified Code(s): I25.10 - Atherosclerotic heart disease of [place] coronary artery without angina pectoris (5) Essential hypertension Priority: Secondary Status: Chronic (6) Elevated troponin Priority: Secondary Status: Acute (7) CKD (chronic kidney disease) stage 3, GFR 30-59 ml/min Priority: Secondary Status: Acute (8) Diabetes Priority: Secondary Status: Acute Qualifiers: Diabetes mellitus type: type 2 Diabetes mellitus assisted insulin use: unspecified assisted insulin use status Diabetes mellitus complication status: with kidney complications Diabetes mellitus complication detail: with chronic kidney disease Chronic kidney disease stage: stage 3 (moderate) Qualified Code(s): E11.22 - Type 2 diabetes mellitus with diabetic chronic kidney disease; N18.3 - Chronic kidney disease, stage 3 (moderate) (9) Hyperkalemia Priority: Secondary (Weight is just went for EGD or sooner as she is not tired done with 90 normal) Status: Resolved (10) QT prolongation Priority: Secondary (so the) Status: Acute (11) Near syncope Priority: Secondary Status: Acute (12) Pituitary macroadenoma with extrasellar extension Priority: Secondary Status: Acute (13) Orthostatic hypotension Priority: Secondary Status: Acute Hospital course: Mr. Collins is a 73 year old male who presented to the emergency department due to dizziness associated with blurry vision and inability to see clearly. Per EMS, patient's blood pressure soon after this dizzy episode was decreased at 76/49: However, repeat blood pressure soon after was within normal limits. Initial EKG was notable for prolonged QTc interval of 512. Head CT was negative for any acute intracranial abnormalities. Patient underwent extensive workup, including carotid Doppler ultrasound, brain MRI, and orthostatic vital signs. Brain MRI was significant for new pituitary macroadenoma with suprasellar extension causing mild mass effect on the optic chiasm and invasion of the left cavernous sinus with greater than 50% encasement of the left internal carotid artery that no associated arterial stenosis. Carotid doppler exam demonstrated nonstenotic, homogeneous, smooth plaque at the right bifurcation, and nonstenotic, heterogeneous, calcified plaque in the left bifurcation. Patient was noted to have positive orthostatic vital signs. Initial laboratory studies were significant for acute kidney injury, with elevated serum creatinine of 1.55. Troponin was elevated at 0.08; however, review of previous results shows this to be a decrease from prior levels. Patient was evaluated by neurology due to new pituitary macroadenoma. Hormone levels were evaluated during hospital admission, with results as follows: TSH 2.835, FSH 5.80, LH 4.97, and prolactin 19.36. Per neurology documentation, this is likely to be an incidental finding, as patient's current symptoms are consistent with orthostatic hypotension and medication effects. Recommendations were made for outpatient neurology follow-up, as well as referrals to both endocrinology and neurosurgery for evaluations and management of pituitary macroadenoma. Formal visual field testing was also recommended. During hospitalization, patient's home medication of Ranexa was held, with resolution of prolonged QTC on EKG performed the day after hospital admission. Home dose of metoprolol was decreased to 25mg daily. Patient was administered IV fluids for her persistent CHLOE, with improvement in serum creatinine noted prior to discharge, as well as improved orthostatic vital signs. On day of discharge, patient denied any ongoing complaints or concerns, and denied any chest pain, shortness of breath, or dizziness. He was instructed to have repeat metabolic panel performed in 1 week to ensure resolution of acute kidney injury. - Time Spent with Patient Total time spent providing and/or coordinating discharge services: - Discharge Medications Prescriptions: New Metoprolol XL (24 HR) Succ [Toprol Xl] 25 mg PO DAILY #30 tab.er.24h Continue Atorvastatin [Lipitor] 40 mg PO HS Venlafaxine HCl [Venlafaxine HCl ER] 225 mg PO DAILY Metformin HCl [Glucophage] 1,000 mg PO BID Insulin Regular Human [Humulin R] 4 - 14 unit SQ TID PRN PRN Reason: SLIDING SCALE Ezetimibe [Zetia] 10 mg PO DAILY Atomoxetine HCl [Strattera] 80 mg PO DAILY Apixaban [Eliquis] 5 mg PO BID #60 tablet Aspirin [Adult Aspirin] 81 mg PO DAILY Isosorbide MONOnitrate (24 HR) [Imdur] 30 mg PO DAILY Ranitidine HCl [Acid Telegraphic Typewriter Repairer] 150 mg PO BID Melatonin 10 mg PO HS Nitroglycerin [Nitrostat] 0.4 mg SL Q5MIN PRN MDD 3DOSES PRN Reason: Chest Pain Clopidogrel [Plavix] 75 mg PO DAILY #30 tablet Memantine HCl 10 mg PO BID Discontinued Metoprolol Succinate [Toprol Xl] 50 mg PO DAILY Ranolazine [Ranexa] 500 mg PO BID 30 Days #60 tab.er.12h Home Medications: Atomoxetine HCl [Strattera] 80 mg PO DAILY 11/04/17 [History] Atorvastatin [Lipitor] 40 mg PO HS 11/04/17 [History] Ezetimibe [Zetia] 10 mg PO DAILY 11/04/17 [History] Insulin Regular Human [Humulin R] 4 - 14 unit SQ TID PRN 11/04/17 [History] Metformin HCl [Glucophage] 1,000 mg PO BID 11/04/17 [History] Venlafaxine HCl [Venlafaxine HCl ER] 225 mg PO DAILY 11/04/17 [History] Apixaban [Eliquis] 5 mg PO BID #60 tablet 11/06/17 [Rx] Aspirin [Adult Aspirin] 81 mg PO DAILY 09/18/18 [History] Isosorbide MONOnitrate (24 HR) [Imdur] 30 mg PO DAILY 09/18/18 [History] Ranitidine HCl [Acid Telegraphic Typewriter Repairer] 150 mg PO BID 09/18/18 [History] Melatonin 10 mg PO HS 09/30/18 [History] Nitroglycerin [Nitrostat] 0.4 mg SL Q5MIN PRN MDD 3DOSES 09/30/18 [History] Clopidogrel [Plavix] 75 mg PO DAILY #30 tablet 10/01/18 [Rx] Memantine HCl 10 mg PO BID 10/08/18 [History] Metoprolol XL (24 HR) Succ [Toprol Xl] 25 mg PO DAILY #30 tab.er.24h 10/09/18 [Rx] Allergies/Adverse Reactions: Allergy/AdvReac Type Severity Reaction Status Date / Time No Known Allergies Allergy Verified 10/03/18 14:42 Date of admission: 10/08/18 15:59 Primary care physician: Brent Vu DO Consults: 10/08/18 10:02 Consult to Neurology [CONS] Routine Consulting Provider: [facility] Reason for Consult: New pituitary macroadenoma on brain MRI causing mass effect on optic chiasm Time Notified: 10:03 Call Completed: Yes Discharging clinician: Brunilda Williamson Anticipated date of discharge: 10/10/18 - Constitutional Vitals: Temp Pulse Resp BP Pulse Ox 97.4 F L 71 15 129/78 97 10/09/18 07:58 10/09/18 07:58 10/09/18 07:58 10/09/18 07:58 10/09/18 07:58 Exam: GENERAL: Well-developed, well-nourished adult male in no acute distress. HEENT: Atraumatic and normocephalic. CARDIOVASCULAR: Regular rate and rhythm. S1 and S2 present. No murmurs, gallops, or rubs. RESPIRATORY: Clear to auscultation bilaterally. Chest rises and falls symmetrically without accessory muscle use. GASTROINTESTINAL: Abdomen is soft, nontender, nondistended. EXTREMITIES: No clubbing, cyanosis, or edema. SKIN: Warm, dry, and intact. NEUROLOGIC: Alert and oriented x3. Patient is cooperative with exam and answers questions appropriately. No apparent focal deficits. PSYCHIATRIC: Appropriate mood and affect. - Patient Status Disposition: Home, Self-Care Condition: Fair - Ambulatory Orders Ambulatory Orders: Basic Metabolic Panel [CHEM] Time Frame: 1 Week, Location: Determined By Patient - Discharge Instructions Follow Up With: [facility] [Provider Group] [facility] [Provider Group] - 10/30/18 11:00 am Jhonny Cazares MD [Partnered Physician] - 10/16/18 11:30 am Brent Vu DO [Primary Care Provider] - 10/14/18 3:40 pm Additional Instructions: Follow up with your PCP in 3-5 days for reevaluation. Have repeat metabolic panel performed in 1 week to ensure resolution of acute kidney injury. Stop taking ranexa and metoprolol 50mg. Continue taking other home medications. Take metoprolol 25mg daily; a prescription for this medication has been sent to the pharmacy. Followup with cardiology and neurology as scheduled. You will also need endocrinology and neurosurgery followup, which will need to be facilitated by your PCP. Return to the emergency department if you have worsening symptoms, or if you develop chest pain, shortness of breath, or other concerning symptoms. <Cam Hernandez - Last Filed: 10/10/18 17:53> Orders not resulted at time of discharge: Pending orders 10/08/18 11:37 Cortisol Fr,Ur Random or 24hr Routine 10/08/18 13:31 ACTH Routine Growth Hormone Routine IGF-1 with calculated Z-Score Routine 10/09/18 15:40 BMP [Basic Metabolic Panel] Routine Date of Encounter: 10/10/18 - Discharge Diagnosis (1) PAF (paroxysmal atrial fibrillation) Status: Acute (2) Acute kidney injury Status: Resolved (3) Dizziness Status: Acute (4) CAD (coronary artery disease) Status: Chronic Qualifiers: Coronary Disease-Associated Artery/Lesion type: [place] artery [place] vs. transplanted heart: [place] heart Associated angina: without angina Qualified Code(s): I25.10 - Atherosclerotic heart disease of [place] coronary artery without angina pectoris (5) Essential hypertension Status: Chronic (6) Elevated troponin Status: Acute (7) CKD (chronic kidney disease) stage 3, GFR 30-59 ml/min Status: Acute (8) Diabetes Status: Acute Qualifiers: Diabetes mellitus type: type 2 Diabetes mellitus assisted insulin use: unspecified intermediate teacher insulin use status Diabetes mellitus complication status: with kidney complications Diabetes mellitus complication detail: with chronic kidney disease Chronic kidney disease stage: stage 3 (moderate) Qualified Code(s): E11.22 - Type 2 diabetes mellitus with diabetic chronic kidney disease; N18.3 - Chronic kidney disease, stage 3 (moderate) (9) Hyperkalemia Status: Resolved (10) QT prolongation Status: Acute (11) Pituitary macroadenoma with extrasellar extension Status: Acute Hospital course: Mr. Collins is a 73 year old male - Time Spent with Patient Total time spent providing and/or coordinating discharge services: 38min Date of admission: 10/08/18 15:59 Primary care physician: Brent Vu DO Consults: 10/08/18 10:02 Consult to Neurology [CONS] Routine Consulting Provider: [facility] Reason for Consult: New pituitary macroadenoma on brain MRI causing mass effect on optic chiasm Time Notified: 10:03 Call Completed: Yes - Constitutional Vitals: Temp Pulse Resp BP Pulse Ox 97.5 F L 52 16 124/62 99 10/09/18 11:14 10/09/18 12:03 10/09/18 11:14 10/09/18 12:03 10/09/18 11:14 - Attending Attestation I examined this patient and my medical decision-making was reviewed with the Resident Physician on 10/09/18. I agree with the documented findings, disposition and treatment plan as described except to the extent set forth below. Mr Collins has been hospitalized for syncope related to orthostatic hypotension. Was found to have pituitary macroadenoma on work up. He was evaluated by neurology and further work up to be done as outpatient. Today he is feeling well. His creatinine is slightly elevated and he has been given more fluids. He is afebrile and ready for discharge home. Exam Alert Comfortable Mucus membranes dry Heart reg and not tachy No wheeze abd soft and nontender No edema Plan D/C home today Follow up with PCP and endocrine. 4/11 - pt remained orthostatic yesterday and discharge held. Today he has improved and is feeling better. He is afebrile and now ready for discharge home. Exam alert comfortable Mucus membranes dry Heart not tachy No wheeze. Decreased breath sounds ABd soft Plan D/C today.
--- NOTE | 2018-10-09 14:57 | Electrocardiograph Report ---
[place] [id number] Test Date: 2018-10-07 Pat Name: Terry Collins Department: [id number] Room: 3B22 Gender: M Foot Gatherer: : 1945 Requested By: Arlene Almendarez Order Number: [id number] Reading MD: Leobardo Patricia Measurements Intervals [place] Rate: 64 P: 31 AK: 158 QRS: -52 QRSD: 114 T: 3 QT: 496 QTc: 512 Interpretive Statements Sinus rhythm Left anterior fascicular block Low voltage, precordial leads Abnormal R-wave progression, late transition Prolonged QT interval Electronically Signed On 10-09-2018 14:56:22 EDT by Leobardo Patricia
[2018-10-09 16:22] LABS: Calcium 8.8 mg/dL (8.6-10.3); Potassium 4.6 mEq/L (3.5-5.1)
[2018-10-09] MEDS ORDERED: Nitroglycerin 0.4 MG TAB.SUBL SL PRN (17:38)
[2018-10-09] MEDS: 0.9 % Sodium Chloride 1,000 ML IVC SCH (19:03)
[2018-10-09] MEDS ORDERED: Melatonin 3 MG TABLET PO SCH (21:00)
[2018-10-09] MEDS: Famotidine 20 MG TABLET PO SCH (21:26)
[2018-10-10] MEDS: 0.9 % Sodium Chloride 1,000 ML IVC SCH (05:50)
[2018-10-10] MEDS: Insulin LISPRO 300 UNITS/3 ML VIAL SQ SCH ×2 (08:05→11:32)
[2018-10-10 08:08] LABS: Basophils % 0.6 %; Eosinophils # 0.2 K/mcL (0.0-0.6); Eosinophils % 2.4 %; Hematocrit 32.6 % (37.5-50.1); Hemoglobin 10.4 g/dL (12.9-16.9); Immature Granulocytes % 0.3 % (0-4); Lymphocytes # 1.1 K/mcL (0.6-4.6); Lymphocytes % 14.9 %; Mean Corpuscular HGB Conc 31.9 g/dL (31.6-35.5); Mean Corpuscular Hemoglobin 31.2 pg (28.0-33.3); Mean Corpuscular Volume 97.9 fL (83.0-100.0); Mean Platelet Volume 9.8 fL (9.4-12.4); Monocytes # 0.7 K/mcL (0.0-1.3); Neutrophils # 5.2 K/mcL (1.6-8.9); Platelet Count 256 K/mcL (140-400); Red Blood Count 3.33 M/mcL (4.19-5.50); Red Cell Distribution Width 13.2 % (11.5-14.5); Segmented Neutrophils % 72.8 %
[2018-10-10 08:18] LABS: BUN/Creatinine Ratio 20 (6-26); Blood Urea Nitrogen 27 mg/dL (8-23); Calcium 9.2 mg/dL (8.6-10.3); Carbon Dioxide 27 mEq/L (23-29); Chloride 107 mEq/L (98-107); Glucose 162 mg/dL (70-105); Osmolality,Calculated 301 (280-300); Potassium 4.7 mEq/L (3.5-5.1); Sodium 141 mEq/L (136-145); eGFR For Non-African Americans 51 (> 60)
[2018-10-10] MEDS ORDERED: Venlafaxine XR (24 HR) 75 MG CAP.ER.24H PO SCH (09:00)
[2018-10-10] MEDS ORDERED: Isosorbide MONOnitrate (24 HR) 30 MG TAB.ER.24H PO SCH (09:00)
[2018-10-10] MEDS: Metoprolol XL (24 HR) Succ 25 MG TAB.ER.24H PO SCH (09:08)
[2018-10-10] MEDS: Apixaban 5 MG TABLET PO SCH (09:08)
[2018-10-10] MEDS: Aspirin Enteric Coated 81 MG Tablet PO SCH (09:08)
[2018-10-10] MEDS: Famotidine 20 MG TABLET PO SCH (09:08)
--- NOTE | 2018-10-10 09:27 | Neurology Progress Note ---
Date of Encounter: 10/10/18 Time of Encounter: 08:50 Assessment and Plan (1) Pituitary macroadenoma with extrasellar extension Current Visit: Yes Status: Acute - Previously unknown pituitary macroadenoma measuring 1.8 x 1.3 x 1.4 cm on MRI - Evidence of suprasellar extension causing mild mass effect with compression of the optic chiasm on MRI - Patient does admit to blurriness in vision/double vision which he attributes to needing new glasses - Review of systems also positive for decreased libido and fatigue, however he has not had any symptoms of galactorrhea, peripheral visual field deficits - Patient did present with near syncopal episode in which he reports has been chronic for the last 2 years - Preliminary laboratory results showing normal levels of TSH, LH, FSH. Prolactin elevated at 19 - Additional hormonal levels pending Plan - At this time, suspect that his syncopal episodes are more likely related to orthostatic hypotension given positive orthostatic vital signs as well as previously known history - Agree with obtaining hormonal levels to assess for secreting adenoma versus nonsecreting - Recommend formal visual field testing as well as neurosurgical consult however this may be done as an outpatient. - I suspect at this time that these findings are likely incidental. Visual disturbances may be related however it does not present classically. - These findings was discussed with the patient and his was at bedside, they are agreeable to plan. All questions were answered - Follow up with Neuro as outpatient upon discharge. At this time, neurology will sign off. Please do not hesitate to reconsult or call for questions. Thank you for allowing us to participate in Mr. Collins's care. (2) Near syncope Current Visit: Yes Status: Acute - As above - Lower suspicion that this may be related to intracranial etiology. More likely related to orthostatic hypotension and cardiac syncope in the setting of recent medication changes and known history of orthostasis Subjective Principal diagnosis: Pituitary macroadenoma Interval history: Patient was seen and examined at bedside this morning. He states that overall he is feeling well with no complaints at this time. He is back to his baseline. He continues to have no complaints of headache, nausea, vomiting, focal deficits or weakness. He does occasionally have a mild frontal ALANIS. He continues to deny any peripheral vision loss. Objective - Constitutional Vitals: Temp Pulse Resp BP Pulse Ox 97.6 F 68 18 148/75 98 10/10/18 07:30 10/10/18 07:30 10/10/18 07:30 10/10/18 09:23 10/10/18 07:30 General appearance: Present: cooperative, A&O X 3, no acute distress - Head Head exam: Present: atraumatic, normal inspection, normocephalic - Eye Eye exam: Present: EOMI, normal appearance, PERRL Pupils: Present: PERRL - Neurological Exam Sensorimotor examination: Present: intact Motor Examination: Present: grossly full strength in all extremities Motor examination - right side: 5/5: deltoids, biceps, triceps, wrist flexion, wrist extension, navy diver, hip flexors, tibialis Anterior, quadriceps, toe extension (EHL), plantarflexion Motor examination - left side: 5/5: deltoids, biceps, triceps, wrist flexion, wrist extension, hip flexors, navy diver, quadriceps, tibialis Anterior, toe extension (EHL), plantarflexion Sensation intact: Present: intact Reflexes: Biceps: 2+, Patella: 2+, Achilles: 2+ Mental Status Examination: Present: awake, alert, oriented to person, oriented to place, oriented to time, follows commands appropriately, answers questions appropriately, no agnosia, no aphasia, opens eyes to voice Cranial nerve examination: Present: PERRL, EOMI, visual ayers intact, sensory to face intact, no facial asymmetry is present, no dysarthria, hearing is intact symmetrically, soft palate elevates bilaterally upon phonation, flexes SCM and trapezius muscles symmetrically with full power, tongue protrudes midline, no atrophy or facial fasiculations present Cerebellar examination: Present: no dysmetria, performs finger to nose and heel to shelley symmetrically without ataxia Results - Laboratory Findings CBC and BMP: 10/10/18 07:30 10/10/18 07:30 Abnormal lab findings: Abnormal lab results RBC 3.33 M/mcL (4.19-5.50) L 10/10/18 07:30 Hgb 10.4 g/dL (12.9-16.9) L 10/10/18 07:30 Hct 32.6 % (37.5-50.1) L 10/10/18 07:30 APTT 42.1 Seconds (26.0-36.0) H D 10/07/18 14:01 BUN 27 mg/dL (8-23) H 10/10/18 07:30 Creatinine 1.37 mg/dL (0.70-1.30) H 10/10/18 07:30 Est GFR (Non-Af Amer) 51 (> 60) L 10/10/18 07:30 Glucose 162 mg/dL (70-105) H 10/10/18 07:30 POC Glucose 283 mg/dL (70-99) H 10/09/18 19:58 Calculated Osmolality 301 (280-300) H 10/10/18 07:30 Troponin I 0.08 ng/mL (< 0.04) H* 10/07/18 14:01 Prolactin 19.36 ng/mL (3.00-14.70) H 10/08/18 13:31 Ur Specific [place] 1.027 (1.010-1.025) H 10/07/18 17:20 Urine Glucose (UA) >=1000 mg/dL (Normal) H 10/07/18 17:20 Urine Ketones Trace mg/dL (Negative) H 10/07/18 17:20 Urine Nitrite Positive (Negative) A 10/07/18 17:20 Urine Microscopic RBC 3-5 per hpf (0-3) H 10/07/18 17:20 Ur Squamous Epith Cells Moderate per lpf (None-Few) H 10/07/18 17:20 Ur Culture Indicated? YES (NO) A 10/07/18 17:20 Consult Discharge Plan - Plan Additional Instructions: Follow up with your PCP in 3-5 days for reevaluation. Have repeat metabolic panel performed in 1 week to ensure resolution of acute kidney injury. Stop taking ranexa and metoprolol 50mg. Continue taking other home medications. Take metoprolol 25mg daily; a prescription for this medication has been sent to the pharmacy. Followup with cardiology and neurology as scheduled. You will also need endocrinology and neurosurgery followup, which will need to be facilitated by your PCP. Return to the emergency department if you have worsening symptoms, or if you develop chest pain, shortness of breath, or other concerning symptoms. Referrals: [facility] [Provider Group] [facility] [Provider Group] - 10/30/18 11:00 am Jhonny Cazares MD [Partnered Physician] - 10/16/18 11:30 am Brent Vu DO [Primary Care Provider] - 10/14/18 3:40 pm Prescriptions: Metoprolol XL (24 HR) Succ [Toprol Xl] 25 mg PO DAILY #30 tab.er.24h
[2018-10-10 11:22] VITALS: BP 136/78
[2018-10-11 11:35] LABS: IGF-1 Z-Score Calculation 0.5
[2018-10-13 11:00] LABS: Urine Collection Volume NOT PROVIDED mL
== END 2018-10-10 12:11 | disposition home or self-care (01) | DRG 312 ==
LOC: EMEROOARM 13:20 → 3BNU 13:20 → SUATTDRO 10-08 15:59
PROVIDERS: ADMIT Internal Medicine Nephrology; ATTEND Internal Medicine